=== PATIENT | male | born 1960 | race Hispanic/Latino ===

== ENCOUNTER 2018-06-11 01:03 | Inpatient (IN) | payer SELFPAY ==
[~2018-06-11 01:03] MED LIST: ADRENALIN ONE; ASPIRIN PR ONE; CALCIUM CHLORIDE IV ONE; CORDARONE IV ONE; HEPARIN 10,000 UNITS/10 ML ONE; MAGNESIUM SULFATE ONE; NACL 0.9% 1000 ML ONE; SODIUM CHLORIDE FLUSH SYRINGE 10 ML IV ONE
[2018-06-11] MEDS ORDERED: VERSED IV ONE (01:15)
[2018-06-11] MEDS ORDERED: ZEMURON IV ONE (01:15)
[2018-06-11] MEDS ORDERED: fentaNYL DRIP Premix 2,000 MCG/100 ML BAG IV SCH (01:15)
[2018-06-11] MEDS ORDERED: NACL 0.9% 1000 ML 1,000 ML IV ONE ×2 (01:21→01:31)
--- NOTE | 2018-06-11 01:21 | Emergency Department Report ---
ED CPR HPI - General Chief Complaint: Altered Mental Status Stated Complaint: CHEST PAIN Time Seen by Provider: 06/11/18 01:21 Mode of arrival: Stretcher Limitations: Altered Mental Status (Patient is unresponsive and was rushed to the main ED from the triage area where he passed out.) - History of Present Illness Initial Comments: Patient was rushed to the emergency room ED from triage area where he suddenly collapsed after complaining of chest pain. When patient arrived in the main ED he had no problems and no respiration. CPR was immediately started and ACLS protocol followed. Patient was quickly intubated and he was given epinephrine, calcium chloride, bicarbonate and IV fluids. Patient went into ventricular fibrillation and was shocked 3 times. After the third shock he was given 300 mg of Amiodarone IVP. Patient regained spontaneous circulation and EKG subs equently showed anterior ST elevation myocardial infarction. Code STEMI was activated immediately and was taken to the Change Management Coordinator. Complaint: stopped breathing Place: other (Hospital ED triage) Bystander CPR Performed: Yes AED Applied by Bystander/[employer]: Yes Shock Advised: Yes Number of Shocks Delivered: 3 Initial Findings in the Field: unresponsive, no respirations, no pulse Associated Injuries: No Associated Symptoms: chest pain - Related Data Allergies Allergy/AdvReac Type Severity Reaction Status Date / Time bupropion [From Wellbutrin] Allergy Unknown Verified 06/11/18 01:35 Penicillins Allergy Hives Verified 06/11/18 01:35 Oehtcet-Jit-Mci Reductase Allergy Unknown Verified 06/11/18 01:35 Inhibitor ED Review of Systems ROS: Stated complaint: CHEST PAIN Other details as noted in HPI Comment: Unobtainable due to pts medical conditions (Unresponsive.) ED Physical Exam - General Limitations: Altered Mental Status (Unresponsive) General appearance: other (Coma. GCS = 3.) - Head Head exam: Present: atraumatic, normal inspection - Eye Eye exam: Present: normal appearance Pupils: Present: other (sluggish) - ENT ENT exam: Present: normal exam, normal orophraynx, mucous membranes moist - Neck Neck exam: Present: normal inspection - Respiratory Respiratory exam: Present: other (No Respiration. ) - Cardiovascular Cardiovascular Exam: Present: other (No pulse) - GI/Abdominal GI/Abdominal exam: Present: soft, normal bowel sounds. Absent: distended - Rectal Rectal exam: Present: deferred - Extremities Exam Extremities exam: Present: normal inspection - Back Exam Back exam: Present: normal inspection - Neurological Exam Neurological exam: Present: other (GCS = 3.) - Skin Skin exam: Present: warm, dry, intact ED Course Vital Signs 06/11/18 06/11/18 01:04 03:51 Temperature 98.4 F 96.6 F L Pulse Rate 111 H Respiratory 17 Rate Blood Pressure 109/76 O2 Sat by Pulse 100 Oximetry - Consultations Consultation #1: 06/11/18 02:31 Dr. Hoffman the chief operating officer urologic surgeon was consulted for Code STEMI. He recommend giving the patient 5000 units of IV heparin bolus [id number] mg of aspirin per rectum before taking the patient to cath. lab for PCI. Consultation #2: 06/11/18 02:45 Dr Cheli Souza to admit. - Intubation Time Out Performed: Yes Sedative: none Size: 4 Assist Device Used: other (Glidescope) ET Tube Size: 7.5 Tube Secured Depth (cm): 22 Tube Secured Location: teeth Tube Placement Confirmation: visualized tube passing t, equal breath sounds bilat, no breath sounds over epi, confirmation by capnometr Patient Tolerated Procedure: well, no complications Intubation Complications: none Additional Comments: RSI was not done because patient is unconscious and has no gag reflex. CPR in progress. Patient had no pulse. ED Medical Decision Making - Lab Data Result diagrams: 06/11/18 01:31 06/11/18 01:31 - EKG Data -: EKG Interpreted by Me EKG shows normal: sinus rhythm Rate: tachycardia (122) - EKG Data When compared to previous EKG there are: previous EKG unavailable Interpretation: acute ID 06/11/18 01:36 ST elevation in I, V2, V3, V4, V5 with reciprocal changes in II, III and AVF. Anterior STEMI. Dr Hoffman called and code STEMI initiated immediately. Critical Care Time: Yes Critical care time in (mins) excluding proc time.: 65 Critical care attestation.: If time is entered above; I have spent that time in minutes in the direct care of this critically ill patient, excluding procedure time. ED Disposition Clinical Impression: ST elevation myocardial infarction (STEMI) of anterior wall, Cardiac arrest, Acute hypokalemia Altered mental status Qualifiers: Altered mental status type: coma Coma depth: Spur coma 3-8 Coma timing: at arrival to emergency department Qualified Code(s): R40.2432 - Spur coma scale score 3-8, at arrival to emergency department Disposition: DC-09 OP ADMIT IP TO THIS HOSP Is pt being admited?: Yes Does the pt Need Aspirin: Yes Condition: Critical Time of Disposition: 02:00
[2018-06-11] MEDS ORDERED: fentaNYL DRIP Premix 2,000 MCG/100 ML BAG IV ONE (01:23)
[2018-06-11] MEDS ORDERED: ASPIRIN PR ONE (01:28)
[2018-06-11] MEDS ORDERED: HEPARIN 10,000 UNITS/10 ML IV ONE (01:28)
[2018-06-11] MEDS ORDERED: SUBLIMAZE IV ONE (01:40)
[2018-06-11 01:48] LABS: Hematocrit 43.7 % (35.5-45.6); Hemoglobin 14.1 gm/dl (11.8-15.2); Mean Corpuscular HGB Conc 32 % (32-34); Mean Corpuscular Volume 89 fl (84-94); Platelet Count 260 K/mm3 (140-440); Red Blood Count 4.91 M/mm3 (3.65-5.03); Red Cell Distribution Width 13.1 % (13.2-15.2)
[2018-06-11] MEDS: CORDARONE 900 MG in D5W 482 ML IV SCH (01:48)
--- NOTE | 2018-06-11 01:48 | XRay Report ---
FINAL REPORT PROCEDURE: XR CHEST 1V AP TECHNIQUE: Chest radiograph anteroposterior view. CPT 95357 HISTORY: Altered Mental Status COMPARISON: No prior studies are available for comparison. FINDINGS: Heart: Normal. Mediastinum/Vessels: Normal. Lungs/Pleural space: Normal. Bony thorax: No acute osseous abnormality. Life support devices: The endotracheal tube ends 4 centimeters above the roxann. IMPRESSION: There is no evidence of an acute cardiopulmonary process. The endotracheal tube is properly positione d..
[2018-06-11 01:59] LABS: INR 1.03 (0.87-1.13); Partial Thromboplastin Time 29.2 Sec. (24.2-36.6)
[2018-06-11] MEDS ORDERED: VERSED IV NR (02:00)
[2018-06-11 02:01] LABS: Bilirubin,Urine Negative (Negative); Color,Urine Yellow (Yellow)
[2018-06-11 02:02] LABS: Blood,Urine Negative (Negative); Urobilinogen,Urine < 2.0 mg/dL (<2.0)
[2018-06-11 02:03] LABS: Bacteria,Urine 4+ /HPF (Negative); Mucus,Urine 3+ /HPF; Sperm,Urine 3+ /HPF (NP)
[2018-06-11 02:06] LABS: Amphetamine Screen,Urine PRESUMPTIVE NEGATIVE; Benzodiazepines Screen,Urine PRESUMPTIVE NEGATIVE; Cannabinoid Screen,Urine PRESUMPTIVE NEGATIVE; Cocaine Screen,Urine PRESUMPTIVE NEGATIVE; Methadone Screen,Urine PRESUMPTIVE NEGATIVE
[2018-06-11 02:09] LABS: Alanine Aminotransferase 58 units/L (7-56); Albumin 3.8 g/dL (3.9-5); BUN/Creatinine Ratio 15; Blood Urea Nitrogen 16 mg/dL (9-20); Calcium 10.8 mg/dL (8.4-10.2); Hemolysis Index 43
[2018-06-11] MEDS ORDERED: HEPARIN/NS 5000 UNIT/500ML(CATH LAB) 1,500 ML IR ONE (02:14)
[2018-06-11] MEDS ORDERED: XYLOCAINE 2% INFILTRATI ONE (02:14)
[2018-06-11] MEDS ORDERED: HEPARIN 10,000 UNITS/10 ML ONE (02:14)
[2018-06-11] MEDS ORDERED: NITROGLYCERIN SYRINGE 3 ML ONE ×2 (02:15→02:55)
[2018-06-11 02:24] LABS: Opiate Screen,Urine PRESUMPTIVE POSITIVE
[2018-06-11] MEDS ORDERED: VERSED ONE ×2 (02:31→03:23)
[2018-06-11 02:36] LABS: Basophils % (Manual) 0 % (0.0-1.8); Eosinophils % (Manual) 2.5 % (0.0-4.3); Total Cells Counted 200
[2018-06-11 02:43] LABS: Platelet Estimate Consistent w Auto; RBC Morphology Normal
[2018-06-11] MEDS ORDERED: KCL 10MEQ/100ML 10 MEQ/100 ML BAG IV ONE (02:44)
[2018-06-11] MEDS: VERSED ONE ×2 (02:54→03:21)
[2018-06-11] MEDS: HEPARIN 10,000 UNITS/10 ML ONE ×2 (02:56→03:02)
[2018-06-11] MEDS ORDERED: KCL 10MEQ/100ML 10 MEQ/100 ML BAG IV SCH (03:00)
[2018-06-11] MEDS ORDERED: ALUM-MAG HYDROX-SIMETH 200-200-20MG/5ML ONE (03:03)
[2018-06-11] MEDS ORDERED: TRIDIL DRIP 50MG/250ML 50 MG/250 ML BOTTLE ONE (03:03)
[2018-06-11] MEDS ORDERED: PLAVIX ONE (03:03)
[2018-06-11] MEDS ORDERED: VASELINE LIP THERAPY TP PRN (03:09)
[2018-06-11] MEDS ORDERED: VERSED IV PRN (03:09)
[2018-06-11] MEDS ORDERED: ARTIFICIAL TEARS OPHTH OINT OU PRN (03:09)
[2018-06-11] MEDS ORDERED: VANCOMYCIN/NS 1 GM/250 ML 1 GM/250 ML BAG IV ONE (03:12)
[2018-06-11] MEDS ORDERED: TRIDIL DRIP 50MG/250ML 50 MG/250 ML BOTTLE IV ONE (03:14)
[2018-06-11] MEDS ORDERED: K-DUR PO ONE (03:16)
--- NOTE | 2018-06-11 03:32 | Consultation ---
History of Present Illness Consult date: 06/11/18 Consult reason: cardiac arrest, other (acute ST elevation anterior wall myocardial infarction) History of present illness: 57-year-old man admitted to the emergency room following a cardiac arrest manifested by ventricular fibrillation and ventricular tachycardia. Emergency room, he received ACLS protocol, was defibrillated at least 3 times, and placed on the vent. Subsequent ECG demonstrated an acute anterolateral wall ST alberto vation myocardial infarction. Emergency cardiac catheterization protocol was activated. On cardiac catheterization was found complete occlusion of the left anterior descending artery in its mid segment, and commenced with intermediate primary angioplasty. DELIA-3 flow was successfully restored, and serial 2.5-2.75 mm drug-eluting stents were successfully deployed. Post intervention, the patient is hemodynamically stable, remains sedated on the vent, and is transferred to the CCU for post myocardial infarction management. Past History Past Medical History: No medical history Medications and Allergies Allergies Allergy/AdvReac Type Severity Reaction Status Date / Time bupropion [From Wellbutrin] Allergy Unknown Verified 06/11/18 01:35 Penicillins Allergy Hives Verified 06/11/18 01:35 Efhvizv-Ttl-Ccq Reductase Allergy Unknown Verified 06/11/18 01:35 Inhibitor Active Meds: Active Medications Atorvastatin Calcium (Lipitor) 40 mg PO QHS SANDY Clopidogrel Bisulfate (Plavix) 75 mg PO QDAY SANDY Hydrophilic Ointment (Vaseline Lip Therapy) 1 applic TP Q2HR PRN PRN Reason: Dry Lips Amiodarone HCl 900 mg/ (Dextrose) 500 mls @ 33.33 mls/hr IV DIRECT SANDY; Protocol Last Admin: 06/11/18 01:48 Dose: 1 mg/min, 33.33 mls/hr Documented by: Potassium Chloride (Kcl 10meq/100ml) 10 meq in 100 mls @ 100 mls/hr IV ONCE ONE Stop: 06/11/18 03:43 Midazolam HCl 100 mg/ Sodium (Chloride) 100 mls @ 2 mls/hr IV TITR SANDY; Protocol Levofloxacin/Dextrose (Levaquin 750mg/150ml) 750 mg in 150 mls @ 100 mls/hr IV Q24HR SANDY; Protocol Vancomycin HCl (Vancomycin/Ns 1 Gm/250 Ml) 1 gm in 250 mls @ 167.007 mls/hr IV ONCE ONE; Protocol Stop: 06/11/18 04:41 Nitroglycerin/Dextrose (Tridil Drip 50mg/250ml) 50 mg in 250 mls @ 3 mls/hr IV TITR ONE; Protocol Stop: 06/14/18 14:33 Sodium Chloride (Nacl 0.9% 1000 Ml) 1,000 mls @ 100 mls/hr IV DIRECT SANDY Stop: 06/11/18 15:59 Sodium Chloride (Nacl 0.9% 1000 Ml) 1,000 mls @ 100 mls/hr IV DIRECT SANDY Lisinopril (Zestril) 2.5 mg PO QDAY SANDY Metoprolol Tartrate (Lopressor) 50 mg PO Q8H SANDY Midazolam HCl (Versed) 4 mg IV ONCE NR Stop: 06/11/18 23:45 Midazolam HCl (Versed) 2 mg IV Q10MIN PRN PRN Reason: Sedation Stop: 06/11/18 23:45 Multi-Ingred Cream/Lotion/Oil/Oint (Artificial Tears Ophth Oint) 1 applic OU Q4HR PRN PRN Reason: Dry Eye(s) Review of Systems Cardiovascular: chest pain, syncope, shortness of breath, no orthopnea, no palpitations, no rapid/irregular heart beat, no edema, no lightheadedness Physical Examination Vital Signs Temp Pulse Resp BP Pulse Ox 98.4 F 111 H 17 109/76 100 06/11/18 01:04 06/11/18 01:04 06/11/18 01:04 06/11/18 01:04 06/11/18 01:04 General appearance: other (sedated, on the vent) HEENT: Positive: PERRL Neck: Positive: neck supple Cardiac: Positive: Reg Rate and Rhythm Lungs: Positive: Decreased Breath Sounds Neuro: Positive: Other (sedated on the vent) Abdomen: Positive: Soft Male genitourinary: Positive: deferred Skin: Positive: Clear Extremities: Absent: edema Results 06/11/18 01:31 06/11/18 01:31 Cardiac Enzymes 06/11/18 Range/Units 01:31 AST 56 H (5-40) units/L Coagulation 06/11/18 Range/Units 01:31 PT 13.9 (12.2-14.9) Sec. INR 1.03 (0.87-1.13) APTT 29.2 (24.2-36.6) Sec. CBC 06/11/18 Range/Units 01:31 WBC 20.5 H (4.5-11.0) K/mm3 RBC 4.91 (3.65-5.03) M/mm3 Hgb 14.1 (11.8-15.2) gm/dl Hct 43.7 (35.5-45.6) % Plt Count 260 (140-440) K/mm3 Lymph # [employer] Comprehensive Metabolic Panel 06/11/18 Range/Units 01:31 Sodium 139 (137-145) mmol/L Potassium 2.6 L* (3.6-5.0) mmol/L Chloride 96.9 L (98-107) mmol/L Carbon Dioxide 22 (22-30) mmol/L BUN 16 (9-20) mg/dL Creatinine 1.1 (0.8-1.5) mg/dL Glucose 174 H (75-100) mg/dL Calcium 10.8 H (8.4-10.2) mg/dL AST 56 H (5-40) units/L ALT 58 H (7-56) units/L Alkaline Phosphatase 79 (35-129) units/L Total Protein 5.9 L (6.3-8.2) g/dL Albumin 3.8 L (3.9-5) g/dL EKG interpretations - Telemetry EKG Rhythm: Sinus Rhythm (with acute ST elevation myocardial infarction of the anterolateral wall) Assessment and Plan - Patient Problems (1) ST elevation myocardial infarction (STEMI) of anterior wall Current Visit: Yes Status: Acute Plan to address problem: Status post emergency cardiac catheterization and successful primary angioplasty and stenting of the occluded mid left anterior descending artery.
[2018-06-11] MEDS ORDERED: NACL 0.9% 1000 ML 1,000 ML IV SCH ×2 (04:00)
[2018-06-11] MEDS ORDERED: MIDAZOLAM 100 MG in NACL 0.9% 80 ML IV SCH (04:00)
--- NOTE | 2018-06-11 04:25 | Cardiac Catherization Report ---
CARDIAC CATHETERIZATION AND CORONARY ANGIOPLASTY REPORT REASON FOR PROCEDURE: The patient is a 57-year-old man who presents to the Emergency Room with chest pain and syncope, and underwent a brief ACLS protocol in the Emergency Room with finding of ventricular fibrillation and ventricular tachycardia requiring defibrillation x 3. After resuscitation, and ECG demonstrated an acute anterolateral wall ST elevation myocardial infarction, emergency cardiac catheterization protocol was activated. PROCEDURES: 1. Left heart catheterization. 2. Selective left and right coronary angiography. 3. Coronary angioplasty and stenting of the left anterior descending artery. 4. Sedation time start 0238, end 0257. The patient was prepped and draped under emergency protocol. On arrival to the lab aid, he was sedated, and intubated on the vent. The right femoral artery was entered using the Seldinger technique followed by placement of a 6-Armenian sheath. A #4 right Gisel catheter was used for right coronary angiography. A #3.5 XB guiding catheter was then advanced to the left coronary ostium and used for left coronary angiography. The angiograms were reviewed. CORONARY ANGIOGRAPHY: There was moderate diffuse calcification of the proximal to mid left anterior descending artery. The left main coronary artery contained mild luminal irregularities. The left anterior descending artery was completely occluded in its mid segment. There was DELIA grade 0 antegrade flow. This was the infarct related lesion. The circumflex artery was a small caliber system that contained diffuse mild to moderate atherosclerosis. The right coronary artery was dominant. This vessel contained a long area of atherosclerosis of its proximal to mid segment, with up to 30% to 50% luminal narrowing. CORONARY ANGIOPLASTY: Ad hoc, primary angioplasty of the LAD was performed. A 0.014 inch Ortho Assistant 50 guidewire was successfully transitioned through the completely occluded LAD. Following wire placement in the distal LAD, we used a 2.5 mm balloon catheter and predilated the stenosis revealing a diffusely diseased mid and distal LAD. We then deployed a 2.75 x 26 mm drug-eluting stent covering the entire lesional segment of the mid LAD. Following this, another 2.5 x 15 mm stent was deployed across a secondary 75% to 80% stenosis of the distal LAD. A 3.0 mm noncompliant balloon was then used to post-dilate the mid LAD primary lesional segment. Following angioplasty and stenting as described, there was an excellent angiographic result, DELIA 3 flow was restored down the vessel, no residual stenosis. Procedure was well tolerated and there were no complications. The catheters and the wires were removed, sheath removed, and hemostasis achieved using an Angio-Seal device. The patient was returned to the postprocedure unit in stable hemodynamic condition. He remains sedated on the vent and is transferred to the CCU for post-HI management. CONCLUSION: 1. Acute anterior wall ST elevation myocardial infarction. 2. Emergency cardiac catheterization. 3. 100% occlusion of the mid LAD, treated successfully, with mandaeism of DELIA 3 flow following serial 2.5-2.75 mm drug-eluting stents. The patient will be admitted to the CCU, echocardiogram will be done for left ventricular function and valvular function assessment. JOB# [id number] LEFTY/JAIME
[2018-06-11 05:19] LABS: Hematocrit 37.6 % (35.5-45.6); Hemoglobin 12.6 gm/dl (11.8-15.2); Mean Corpuscular HGB Conc 34 % (32-34); Mean Corpuscular Volume 84 fl (84-94); Platelet Count 308 K/mm3 (140-440); Red Blood Count 4.46 M/mm3 (3.65-5.03); Red Cell Distribution Width 12.7 % (13.2-15.2)
[2018-06-11] MEDS: LEVAQUIN 750MG/150ML 750 MG/150 ML BAG IV SCH ×2 (05:21→10:36)
[2018-06-11] MEDS: LOPRESSOR PO SCH ×3 (05:22→20:48)
--- NOTE | 2018-06-11 05:28 | History and Physical Report ---
History of Present Illness Date of examination: 06/11/18 Date of admission: 06/11/18 03:20 History of present illness: 57-year-old man with no medical problem comes emergency room for evaluation of chest pain. While he was in the waiting room he had a syncopal episode. He was brought back into the emergency room, he had cardiac arrest and CPR was started. Patient was shocked 3 for V. fib, he was taken emergently to the cath lab manager where a stent was placed in the LAD. A review of systems unobtainable PAST MEDICAL HISTORY: Unknown PAST SURGICAL HISTORY: Unknown SOCIAL HISTORY: Unknown FAMILY HISTORY: Unknown Past History Past Medical History: No medical history Medications and Allergies Allergies Allergy/AdvReac Type Severity Reaction Status Date / Time bupropion [From Wellbutrin] Allergy Unknown Verified 06/20/18 13:53 Penicillins Allergy Hives Verified 06/20/18 13:53 Tpurwif-Sqj-Zok Reductase Allergy Unknown Verified 06/20/18 13:53 Inhibitor Home Medications Medication Instructions Recorded Confirmed Last Taken Type RX: Acetaminophen [Acetaminophen 650 mg PO Q6H PRN #15 tablet 06/18/18 Unknown Rx TAB] RX: Amiodarone [Cordarone 200 MG 200 mg PO BID #60 tablet 06/18/18 Unknown Rx TAB] RX: Aspirin EC [Aspirin Enteric 81 mg PO QDAY #30 tablet 06/18/18 Unknown Rx Coated TAB] RX: Clopidogrel [Plavix] 75 mg PO QDAY #30 tablet 06/18/18 Unknown Rx RX: ISOSORBIDE MONOnitrate [Imdur 30 mg PO QDAY #30 tablet 06/18/18 Unknown Rx ER] RX: Lactobacillus Acidophil 1 each PO BID #30 tab.chew 06/18/18 Unknown Rx [Lactinex] RX: Lisinopril [Zestril TAB] 2.5 mg PO QDAY #30 tablet 06/18/18 Unknown Rx RX: Metoprolol Xl [Metoprolol 200 mg PO QDAY #30 tablet 06/18/18 Unknown Rx SUCCINATE ER TAB] RX: Pantoprazole [Protonix TAB] 20 mg PO DAILY #30 tablet 06/18/18 Unknown Rx RX: Spironolactone [Aldactone] 25 mg PO QDAY #30 tablet 06/18/18 Unknown Rx Rosuvastatin (Nf) [Crestor] 20 mg PO QHS #30 tablet 06/18/18 Unknown Rx Active Meds: Active Medications Atorvastatin Calcium (Lipitor) 40 mg PO QHS SANDY Clopidogrel Bisulfate (Plavix) 75 mg PO QDAY SANDY Hydrophilic Ointment (Vaseline Lip Therapy) 1 applic TP Q2HR PRN PRN Reason: Dry Lips Amiodarone HCl 900 mg/ (Dextrose) 500 mls @ 33.33 mls/hr IV DIRECT SANDY; Protocol Last Admin: 06/11/18 01:48 Dose: 1 mg/min, 33.33 mls/hr Documented by: Midazolam HCl 100 mg/ Sodium (Chloride) 100 mls @ 2 mls/hr IV TITR SANDY; Protocol Last Admin: 06/11/18 03:52 Dose: 2 mg/hr, 2 mls/hr Documented by: Levofloxacin/Dextrose (Levaquin 750mg/150ml) 750 mg in 150 mls @ 100 mls/hr IV Q24HR SANDY; Protocol Last Admin: 06/11/18 05:21 Dose: Not Given Documented by: Nitroglycerin/Dextrose (Tridil Drip 50mg/250ml) 50 mg in 250 mls @ 3 mls/hr IV TITR ONE; Protocol Stop: 06/14/18 14:33 Last Admin: 06/11/18 05:21 Dose: Not Given Documented by: Sodium Chloride (Nacl 0.9% 1000 Ml) 1,000 mls @ 100 mls/hr IV DIRECT SANDY Stop: 06/11/18 15:59 Sodium Chloride (Nacl 0.9% 1000 Ml) 1,000 mls @ 100 mls/hr IV DIRECT SANDY Lisinopril (Zestril) 2.5 mg PO QDAY SANDY Metoprolol Tartrate (Lopressor) 50 mg PO Q8H [facility] Last Admin: 06/11/18 05:22 Dose: Not Given Documented by: Midazolam HCl (Versed) 4 mg IV ONCE NR Stop: 06/11/18 23:45 Midazolam HCl (Versed) 2 mg IV Q10MIN PRN PRN Reason: Sedation Stop: 06/11/18 23:45 Multi-Ingred Cream/Lotion/Oil/Oint (Artificial Tears Ophth Oint) 1 applic OU Q4HR PRN PRN Reason: Dry Eye(s) Exam - Physical Exam Narrative exam: General Apperance: The patient lying in bed, breathing comfortable , intubated HEENT: Normocephalic, atraumatic. Pupils equally round and reactive to light, unable to do EOM, no sclericterus or JVD or thyromegaly or nodule. , no carotid bruit, mucous membranes moist, no exudate or erythema Heart: S1-S2, regular is rhythm Lungs: Clear to auscultation anteriorly bilaterally, breathing comfortable Abdomen: Positive bowel sounds, soft, soft, nondistended, no organomegaly Extremities: No edema cyanosis clubbing Skin: sacral and lower extremity ulcers, no rash, nodule, warm and dry Neuro: sedated - Constitutional Vitals: Temp Pulse Resp BP Pulse Ox 96.6 F L 71 20 83/56 99 06/11/18 03:51 06/11/18 05:22 06/11/18 05:15 06/11/18 05:22 06/11/18 05:15 Results - Labs CBC & Chem 7: 06/18/18 04:46 06/18/18 04:46 Labs: Abnormal lab results 06/11/18 06/11/18 06/11/18 Range/Units 01:31 01:31 01:31 WBC 20.5 H (4.5-11.0) K/mm3 RDW 13.1 L (13.2-15.2) % Seg Neutrophils # Man 12.3 H (1.8-7.7) K/mm3 Lymphocytes # (Manual) 6.9 H (1.2-5.4) K/mm3 Eosinophils # (Manual) 0.5 H (0.0-0.4) K/mm3 Potassium 2.6 L* (3.6-5.0) mmol/L Chloride 96.9 L (98-107) mmol/L Glucose 174 H (75-100) mg/dL Lactic Acid 9.10 H* (0.7-2.0) mmol/L Calcium 10.8 H (8.4-10.2) mg/dL AST 56 H (5-40) units/L ALT 58 H (7-56) units/L Ammonia (25-60) umol/L Troponin T 0.094 H (0.00-0.029) ng/mL NT-Pro-B Natriuret Pep 1466 H (0-900) pg/mL Total Protein 5.9 L (6.3-8.2) g/dL Albumin 3.8 L (3.9-5) g/dL TSH (0.270-4.200) mlU/mL Urine WBC (Auto) (0.0-6.0) /HPF 06/11/18 06/11/18 06/11/18 Range/Units 01:31 01:31 01:31 WBC (4.5-11.0) K/mm3 RDW (13.2-15.2) % Seg Neutrophils # Man (1.8-7.7) K/mm3 Lymphocytes # (Manual) (1.2-5.4) K/mm3 Eosinophils # (Manual) (0.0-0.4) K/mm3 Potassium (3.6-5.0) mmol/L Chloride (98-107) mmol/L Glucose (75-100) mg/dL Lactic Acid (0.7-2.0) mmol/L Calcium (8.4-10.2) mg/dL AST (5-40) units/L ALT (7-56) units/L Ammonia 62.0 H (25-60) umol/L Troponin T (0.00-0.029) ng/mL NT-Pro-B Natriuret Pep (0-900) pg/mL Total Protein (6.3-8.2) g/dL Albumin (3.9-5) g/dL TSH 7.520 H (0.270-4.200) mlU/mL Urine WBC (Auto) 11.0 H (0.0-6.0) /HPF 06/11/18 Range/Units 04:58 WBC 24.7 H (4.5-11.0) K/mm3 RDW 12.7 L (13.2-15.2) % Seg Neutrophils # Man (1.8-7.7) K/mm3 Lymphocytes # (Manual) (1.2-5.4) K/mm3 Eosinophils # (Manual) (0.0-0.4) K/mm3 Potassium (3.6-5.0) mmol/L Chloride (98-107) mmol/L Glucose (75-100) mg/dL Lactic Acid (0.7-2.0) mmol/L Calcium (8.4-10.2) mg/dL AST (5-40) units/L ALT (7-56) units/L Ammonia (25-60) umol/L Troponin T (0.00-0.029) ng/mL NT-Pro-B Natriuret Pep (0-900) pg/mL Total Protein (6.3-8.2) g/dL Albumin (3.9-5) g/dL TSH (0.270-4.200) mlU/mL Urine WBC (Auto) (0.0-6.0) /HPF - Imaging and Cardiology EKG: image reviewed Chest x-ray: image reviewed Assessment and Plan Assessment Acute respiratory failure Cardiac arrest Sepsis STMI Status post V. fib Hypokalemia Plan Admit to medicine Start IV fluid, vancomycin, Zosyn, obtain blood cultures Consult critical care, replete potassium level Continue sedation with Versed drip Check T4, TSH level elevated, monitor cardiac enzymes STEMI, post V. fib V. fib, management per cardiology DVT prophylaxis
[2018-06-11 05:35] LABS: BUN/Creatinine Ratio 15; Blood Urea Nitrogen 17 mg/dL (9-20); Calcium 8.6 mg/dL (8.4-10.2); Hemolysis Index 10
[2018-06-11 06:20] LABS: Band Neutrophils # (Manual) 0.4 K/mm3; Basophils % (Manual) 0 % (0.0-1.8); Eosinophils % (Manual) 0 % (0.0-4.3); Monocytes % (Manual) 4.5 % (0.0-7.3); Platelet Estimate Consistent w Auto; RBC Morphology Normal; Total Cells Counted 200
[2018-06-11 06:29] LABS: Creatine Kinase MB 89.4 ng/mL (0.0-4.0)
[2018-06-11 06:49] LABS: Chol/HDL Ratio 3.41 %
--- NOTE | 2018-06-11 09:15 | Progress Note ---
Assessment and Plan - Patient Problems (1) Ventricular fibrillation Current Visit: Yes Status: Acute (2) Cardiac arrest Current Visit: Yes Status: Acute (3) ST elevation myocardial infarction (STEMI) of anterior wall Current Visit: Yes Status: Acute Subjective Date of service: 06/11/18 Interval history: vent',,,arousable Objective Vital Signs Temp Pulse Resp BP Pulse Ox 06/11/18 07:51 97.4 F L 06/11/18 07:00 74 20 107/78 100 06/11/18 06:45 70 20 110/81 06/11/18 06:30 73 20 92/65 100 06/11/18 06:15 71 20 89/60 100 06/11/18 06:00 71 20 83/57 100 06/11/18 05:45 71 20 79/55 06/11/18 05:30 71 20 82/54 06/11/18 05:22 71 83/56 06/11/18 05:15 71 20 83/56 99 06/11/18 05:01 73 20 91/60 99 06/11/18 04:45 75 20 103/72 98 06/11/18 04:31 76 18 105/74 97 06/11/18 04:15 73 20 105/72 99 06/11/18 04:01 74 20 109/71 98 06/11/18 03:54 73 114/71 98 06/11/18 03:51 96.6 F L 20 100 06/11/18 03:45 83 10 L 06/11/18 01:45 87 20 106/75 100 06/11/18 01:31 107 H 14 94/66 100 06/11/18 01:16 131 H 28 H 109/76 97 06/11/18 01:08 214 H 102 H 108/68 06/11/18 01:04 98.4 F 111 H 17 109/76 100 06/11/18 00:30 108/68 06/11/18 00:24 95 H 25 H 99 - Physical Examination General: Other (VENT) HEENT: Positive: PERRL Neck: Positive: neck supple Cardiac: Positive: Reg Rate and Rhythm Lungs: Positive: clear to auscultation Neuro: Positive: Grossly Intact, Other (sedated on the vent) Abdomen: Positive: Soft Skin: Positive: Clear Musculoskeletal: Normal Range of Motion Extremities: Present: normal. Absent: edema - Labs and Meds Cardiac Enzymes 06/11/18 06/11/18 Range/Units 01:31 04:58 AST 56 H (5-40) units/L CK-MB (CK-2) 89.4 H (0.0-4.0) ng/mL Coagulation 06/11/18 Range/Units 01:31 PT 13.9 (12.2-14.9) Sec. INR 1.03 (0.87-1.13) APTT 29.2 (24.2-36.6) Sec. Lipids 06/11/18 Range/Units 04:58 Triglycerides 41 (2-149) mg/dL Cholesterol 140 (50-199) mg/dL HDL Cholesterol 41 (40-59) mg/dL Cholesterol/HDL Ratio 3.41 % CBC 06/11/18 06/11/18 Range/Units 01:31 04:58 WBC 20.5 H 24.7 H (4.5-11.0) K/mm3 RBC 4.91 4.46 (3.65-5.03) M/mm3 Hgb 14.1 12.6 (11.8-15.2) gm/dl Hct 43.7 37.6 D (35.5-45.6) % Plt Count 260 308 (140-440) K/mm3 Lymph # Deli Clerk Comprehensive Metabolic Panel 06/11/18 06/11/18 06/11/18 Range/Units 01:31 04:58 04:58 Sodium 139 137 (137-145) mmol/L Potassium 2.6 L* 4.0 D 4.0 (3.6-5.0) mmol/L Chloride 96.9 L 102.1 (98-107) mmol/L Carbon Dioxide 22 23 (22-30) mmol/L BUN 16 17 (9-20) mg/dL Creatinine 1.1 1.1 (0.8-1.5) mg/dL Glucose 174 H 195 H (75-100) mg/dL Calcium 10.8 H 8.6 D (8.4-10.2) mg/dL AST 56 H (5-40) units/L ALT 58 H (7-56) units/L Alkaline Phosphatase 79 (35-129) units/L Total Protein 5.9 L (6.3-8.2) g/dL Albumin 3.8 L (3.9-5) g/dL - Imaging and Cardiology EKG: image reviewed
[2018-06-11] MEDS ORDERED: PEPCID IV SCH (10:00)
[2018-06-11] MEDS: LOVENOX SUB-Q SCH (10:35)
[2018-06-11] MEDS: ASPIRIN PO SCH (10:35)
[2018-06-11] MEDS: ZESTRIL PO SCH (10:42)
--- NOTE | 2018-06-11 11:04 | XRay Report ---
AP CHEST: HISTORY: Short of breath The endotracheal tube and nasogastric tube have been removed since earlier today at 0127 hours. AP view of the chest demonstrates a normal mediastinal and cardiac contour with clear lungs and normal bony and soft tissue structures. IMPRESSION: Unremarkable AP chest.
[2018-06-11] MEDS ORDERED: LASIX IV ONE (12:00)
[2018-06-11 12:27] LABS: Creatine Kinase MB 243.4 ng/mL (0.0-4.0)
[2018-06-11] MEDS: ZOFRAN IV PRN (13:15)
--- NOTE | 2018-06-11 13:51 | Consultation ---
History of Present Illness - Reason for Consult Consult date: 06/11/18 Post Vfib ARREST Requesting physician: ELIAS DEGROOT - History of Present Illness 57 y/o male with chest pain. Collapsed in triage. Found to be in Vfib arrest. Taken to [facility] and found to have 100% LAD occlusion. Stented. Patient was intubated prior to [facility]. Mother at bedside, frantic. Patient is awake and alert, follows commands. All sedation is off. Past History Past Medical History: No medical history Past Surgical History: No surgical history Social history: no significant social history Family history: no significant family history Medications and Allergies Allergies Allergy/AdvReac Type Severity Reaction Status Date / Time bupropion [From Wellbutrin] Allergy Unknown Verified 06/11/18 01:35 Penicillins Allergy Hives Verified 06/11/18 01:35 Adtuvaz-Yff-Usp Reductase Allergy Unknown Verified 06/11/18 01:35 Inhibitor Active Meds: Active Medications Aspirin (Aspirin) 325 mg PO QDAY [facility] Last Admin: 06/11/18 10:35 Dose: 325 mg Documented by: Atorvastatin Calcium (Lipitor) 40 mg PO QHS SANDY Clopidogrel Bisulfate (Plavix) 75 mg PO QDAY SANDY Enoxaparin Sodium (Lovenox) 40 mg SUB-Q QDAY [facility] Last Admin: 06/11/18 10:35 Dose: 40 mg Documented by: Hydrophilic Ointment (Vaseline Lip Therapy) 1 applic TP Q2HR PRN PRN Reason: Dry Lips Amiodarone HCl 900 mg/ (Dextrose) 500 mls @ 33.33 mls/hr IV DIRECT SANDY; Protocol Last Titration: 06/11/18 06:00 Dose: 0.5 mg/min, 16.67 mls/hr Documented by: Nitroglycerin/Dextrose (Tridil Drip 50mg/250ml) 50 mg in 250 mls @ 3 mls/hr IV TITR ONE; Protocol Stop: 06/14/18 14:33 Last Admin: 06/11/18 05:21 Dose: Not Given Documented by: Lisinopril (Zestril) 2.5 mg PO QDAY [facility] Last Admin: 06/11/18 10:42 Dose: 2.5 mg Documented by: Metoprolol Tartrate (Lopressor) 50 mg PO Q8H [facility] Last Admin: 01/02/19 05:22 Dose: Not Given Documented by: Multi-Ingred Cream/Lotion/Oil/Oint (Artificial Tears Ophth Oint) 1 applic OU Q4HR PRN PRN Reason: Dry Eye(s) Ondansetron HCl (Zofran) 4 mg IV Q8H PRN PRN Reason: Nausea And Vomiting Review of Systems ROS unobtainable: due to endotracheal tube Exam - Constitutional Vitals: Temp Pulse Resp BP Pulse Ox 97.2 F L 88 25 H 125/90 93 06/11/18 12:00 06/11/18 12:31 06/11/18 12:31 06/11/18 12:31 06/11/18 12:31 General appearance: Present: no acute distress, well-nourished - EENT Eyes: Present: PERRL, EOM intact ENT: hearing intact, other (orally intubated) - Neck Neck: Present: supple, normal ROM - Respiratory Respiratory effort: normal Respiratory: bilateral: CTA - Cardiovascular Rhythm: regular Heart Sounds: Present: S1 & S2 - Abdominal General gastrointestinal: Present: soft, non-tender Male genitourinary: Present: deferred - Rectal Rectal Exam: deferred Results - Labs CBC & Chem 7: 06/11/18 04:58 06/11/18 04:58 Labs: Abnormal lab results 06/11/18 06/11/18 06/11/18 Range/Units 01:31 01:31 01:31 WBC 20.5 H (4.5-11.0) K/mm3 RDW 13.1 L (13.2-15.2) % Seg Neuts % (Manual) (40.0-70.0) % Lymphocytes % (Manual) (13.4-35.0) % Seg Neutrophils # Man 12.3 H (1.8-7.7) K/mm3 Lymphocytes # (Manual) 6.9 H (1.2-5.4) K/mm3 Monocytes # (Manual) (0.0-0.8) K/mm3 Eosinophils # (Manual) 0.5 H (0.0-0.4) K/mm3 POC ABG pO2 (80-105) Potassium 2.6 L* (3.6-5.0) mmol/L Chloride 96.9 L (98-107) mmol/L Glucose 174 H (75-100) mg/dL POC Glucose (70-105) Lactic Acid 9.10 H* (0.7-2.0) mmol/L Calcium 10.8 H (8.4-10.2) mg/dL AST 56 H (5-40) units/L ALT 58 H (7-56) units/L Ammonia (25-60) umol/L Total Creatine Kinase (55-170) units/L CK-MB (CK-2) (0.0-4.0) ng/mL CK-MB (CK-2) Rel Index (0-4) Troponin T 0.094 H (0.00-0.029) ng/mL NT-Pro-B Natriuret Pep 1466 H (0-900) pg/mL Total Protein 5.9 L (6.3-8.2) g/dL Albumin 3.8 L (3.9-5) g/dL TSH (0.270-4.200) mlU/mL Urine WBC (Auto) (0.0-6.0) /HPF 06/11/18 06/11/18 06/11/18 Range/Units 01:31 01:31 01:31 WBC (4.5-11.0) K/mm3 RDW (13.2-15.2) % Seg Neuts % (Manual) (40.0-70.0) % Lymphocytes % (Manual) (13.4-35.0) % Seg Neutrophils # Man (1.8-7.7) K/mm3 Lymphocytes # (Manual) (1.2-5.4) K/mm3 Monocytes # (Manual) (0.0-0.8) K/mm3 Eosinophils # (Manual) (0.0-0.4) K/mm3 POC ABG pO2 (80-105) Potassium (3.6-5.0) mmol/L Chloride (98-107) mmol/L Glucose (75-100) mg/dL POC Glucose (70-105) Lactic Acid (0.7-2.0) mmol/L Calcium (8.4-10.2) mg/dL AST (5-40) units/L ALT (7-56) units/L Ammonia 62.0 H (25-60) umol/L Total Creatine Kinase (55-170) units/L CK-MB (CK-2) (0.0-4.0) ng/mL CK-MB (CK-2) Rel Index (0-4) Troponin T (0.00-0.029) ng/mL NT-Pro-B Natriuret Pep (0-900) pg/mL Total Protein (6.3-8.2) g/dL Albumin (3.9-5) g/dL TSH 7.520 H (0.270-4.200) mlU/mL Urine WBC (Auto) 11.0 H (0.0-6.0) /HPF 06/11/18 06/11/18 06/11/18 Range/Units 04:25 04:58 04:58 WBC (4.5-11.0) K/mm3 RDW (13.2-15.2) % Seg Neuts % (Manual) (40.0-70.0) % Lymphocytes % (Manual) (13.4-35.0) % Seg Neutrophils # Man (1.8-7.7) K/mm3 Lymphocytes # (Manual) (1.2-5.4) K/mm3 Monocytes # (Manual) (0.0-0.8) K/mm3 Eosinophils # (Manual) (0.0-0.4) K/mm3 POC ABG pO2 426 H (80-105) Potassium (3.6-5.0) mmol/L Chloride (98-107) mmol/L Glucose (75-100) mg/dL POC Glucose (70-105) Lactic Acid 3.00 H* (0.7-2.0) mmol/L Calcium (8.4-10.2) mg/dL AST (5-40) units/L ALT (7-56) units/L Ammonia (25-60) umol/L Total Creatine Kinase 1008 H (55-170) units/L CK-MB (CK-2) 89.4 H (0.0-4.0) ng/mL CK-MB (CK-2) Rel Index (0-4) Troponin T 0.829 H* D (0.00-0.029) ng/mL NT-Pro-B Natriuret Pep (0-900) pg/mL Total Protein (6.3-8.2) g/dL Albumin (3.9-5) g/dL TSH (0.270-4.200) mlU/mL Urine WBC (Auto) (0.0-6.0) /HPF 06/11/18 06/11/18 06/11/18 Range/Units 04:58 04:58 11:26 WBC 24.7 H (4.5-11.0) K/mm3 RDW 12.7 L (13.2-15.2) % Seg Neuts % (Manual) 86.5 H (40.0-70.0) % Lymphocytes % (Manual) 7.5 L (13.4-35.0) % Seg Neutrophils # Man 21.4 H (1.8-7.7) K/mm3 Lymphocytes # (Manual) (1.2-5.4) K/mm3 Monocytes # (Manual) 1.1 H (0.0-0.8) K/mm3 Eosinophils # (Manual) (0.0-0.4) K/mm3 POC ABG pO2 (80-105) Potassium (3.6-5.0) mmol/L Chloride (98-107) mmol/L Glucose 195 H (75-100) mg/dL POC Glucose (70-105) Lactic Acid (0.7-2.0) mmol/L Calcium (8.4-10.2) mg/dL AST (5-40) units/L ALT (7-56) units/L Ammonia (25-60) umol/L Total Creatine Kinase (55-170) units/L CK-MB (CK-2) (0.0-4.0) ng/mL CK-MB (CK-2) Rel Index (0-4) Troponin T 1.320 H* D (0.00-0.029) ng/mL NT-Pro-B Natriuret Pep (0-900) pg/mL Total Protein (6.3-8.2) g/dL Albumin (3.9-5) g/dL TSH (0.270-4.200) mlU/mL Urine WBC (Auto) (0.0-6.0) /HPF 06/11/18 06/11/18 Range/Units 11:26 11:58 WBC (4.5-11.0) K/mm3 RDW (13.2-15.2) % Seg Neuts % (Manual) (40.0-70.0) % Lymphocytes % (Manual) (13.4-35.0) % Seg Neutrophils # Man (1.8-7.7) K/mm3 Lymphocytes # (Manual) (1.2-5.4) K/mm3 Monocytes # (Manual) (0.0-0.8) K/mm3 Eosinophils # (Manual) (0.0-0.4) K/mm3 POC ABG pO2 (80-105) Potassium (3.6-5.0) mmol/L Chloride (98-107) mmol/L Glucose (75-100) mg/dL POC Glucose 187 H (70-105) Lactic Acid (0.7-2.0) mmol/L Calcium (8.4-10.2) mg/dL AST (5-40) units/L ALT (7-56) units/L Ammonia (25-60) umol/L Total Creatine Kinase 2150 H (55-170) units/L CK-MB (CK-2) 243.4 H (0.0-4.0) ng/mL CK-MB (CK-2) Rel Index 11.3 H (0-4) Troponin T (0.00-0.029) ng/mL NT-Pro-B Natriuret Pep (0-900) pg/mL Total Protein (6.3-8.2) g/dL Albumin (3.9-5) g/dL TSH (0.270-4.200) mlU/mL Urine WBC (Auto) (0.0-6.0) /HPF - Imaging and Cardiology Chest x-ray: image reviewed (No evidence of acute lung disease) Assessment and Plan 57 y/o male with Vfib arrest secondary to CAD and complete LAD occlusion 1. Will attempt extubation.] 2. Per cards note, EF is 30%, will give a one time dose of lasix with extubation 3. ASA, PLAVIX, BB, per Cards ok to give Statin even with allergy ( on rounds discussed that cards spoke with mother about this) 4. Likely ready for transfer out of unit tomorrow. CCT 31 minutes.
--- NOTE | 2018-06-11 14:24 | Progress Note ---
Assessment and Plan Assessment and plan: Patient is 57 yo man without chronic medical problems who presented to [facility] ED with Chest pains. While he was in the waiting room, he had a syncopal episode. He was brought back into the emergency room where he had cardiac arrest and CPR was started. Patient was shocked 3 for V. fib, he was taken emergently to the [facility] where a stent was placed in the LAD. Acute respiratory failure, s/p Intubation and now extubated Cardiac arrest SIRS with organ dysfunction, poa, no sepsis without source: will stop abx STEMI with cardiac stent to LAD Status post V. fib Hypokalemia Cardiogenic syncope Prolonged inpatient services 32 minutes History Interval history: Patient was seen and examined. Follow-up on current diagnosis of chest pains. Overnight uneventful. Patient denies any nausea/vomiting or severe headaches. Imaging, nursing note, chart, labs and old chart reviewed. Discussed with patient and mother at bedside. He doesn't remember much. Hospitalist Physical - Physical exam Narrative exam: Gen: WDWN, NAD, Awake, Alert, Orientated HEENT: NCAT, EOMI, PERRL, OP Clear Neck: supple, no adenopathy, no thyromegaly, no JVD CVS/Heart: RRR, normal S1S2, pulses present bilaterally Chest/Lungs: CTA B, Symmetrical chest expansion, good air entry bilaterally GI/Abdomen: soft, NTND, good bowel sounds, no guarding or rebound /Bladder: no suprapubic tenderness, no CVA or paraspinal tenderness Extermity/Skin: no c/c/e, no obvious rash MSK: FROM x 4 Neuro: CN 2-12 grossly intact, no new focal deficits Psych: calm - Constitutional Vitals: Temp Pulse Resp BP Pulse Ox 97.2 F L 88 25 H 125/90 93 06/11/18 12:00 06/11/18 12:31 06/11/18 12:31 06/11/18 12:31 06/11/18 12:31 General appearance: Present: no acute distress, well-nourished Results - Labs CBC & Chem 7: 06/11/18 04:58 06/11/18 04:58 Labs: Laboratory Last Values WBC 24.7 K/mm3 (4.5-11.0) H 06/11/18 04:58 RBC 4.46 M/mm3 (3.65-5.03) 06/11/18 04:58 Hgb 12.6 gm/dl (11.8-15.2) 06/11/18 04:58 Hct 37.6 % (35.5-45.6) D 06/11/18 04:58 MCV 84 fl (84-94) 06/11/18 04:58 MCH 28 pg (28-32) 06/11/18 04:58 MCHC 34 % (32-34) 06/11/18 04:58 RDW 12.7 % (13.2-15.2) L 06/11/18 04:58 Plt Count 308 K/mm3 (140-440) 06/11/18 04:58 Lymph # [employer]print Trimmer 06/11/18 01:31 Add Manual Diff Complete 06/11/18 04:58 Total Counted 200 06/11/18 04:58 Seg Neutrophils % Blueprint Trimmer 06/11/18 04:58 Seg Neuts % (Manual) 86.5 % (40.0-70.0) H 06/11/18 04:58 Band Neutrophils % 1.5 % 06/11/18 04:58 Lymphocytes % (Manual) 7.5 % (13.4-35.0) L 06/11/18 04:58 Reactive Lymphs % (Man) 0 % 06/11/18 04:58 Monocytes % (Manual) 4.5 % (0.0-7.3) 06/11/18 04:58 Eosinophils % (Manual) 0 % (0.0-4.3) 06/11/18 04:58 Basophils % (Manual) 0 % (0.0-1.8) 06/11/18 04:58 Metamyelocytes % 0 % 06/11/18 04:58 Myelocytes % 0 % 06/11/18 04:58 Promyelocytes % 0 % 06/11/18 04:58 Blast Cells % 0 % 06/11/18 04:58 Nucleated RBC % Not Reportable 06/11/18 04:58 Seg Neutrophils # Man 21.4 K/mm3 (1.8-7.7) H 06/11/18 04:58 Band Neutrophils # 0.4 K/mm3 06/11/18 04:58 Lymphocytes # (Manual) 1.9 K/mm3 (1.2-5.4) 06/11/18 04:58 Abs React Lymphs (Man) 0.0 K/mm3 06/11/18 04:58 Monocytes # (Manual) 1.1 K/mm3 (0.0-0.8) H 06/11/18 04:58 Eosinophils # (Manual) 0.0 K/mm3 (0.0-0.4) 06/11/18 04:58 Basophils # (Manual) 0.0 K/mm3 (0.0-0.1) 06/11/18 04:58 Metamyelocytes # 0.0 K/mm3 06/11/18 04:58 Myelocytes # 0.0 K/mm3 06/11/18 04:58 Promyelocytes # 0.0 K/mm3 06/11/18 04:58 Blast Cells # 0.0 K/mm3 06/11/18 04:58 WBC Morphology Not Reportable 06/11/18 04:58 Hypersegmented Neuts Not Reportable 06/11/18 04:58 Hyposegmented Neuts Not Reportable 06/11/18 04:58 Hypogranular Neuts Not Reportable 06/11/18 04:58 Smudge Cells Not Reportable 06/11/18 04:58 Toxic Granulation Not Reportable 06/11/18 04:58 Toxic Vacuolation Not Reportable 06/11/18 04:58 Dohle Bodies Not Reportable 06/11/18 04:58 Pelger-Huet Anomaly Not Reportable 06/11/18 04:58 Zander Rods Not Reportable 06/11/18 04:58 Platelet Estimate Consistent w auto 06/11/18 04:58 Clumped Platelets Not Reportable 06/11/18 04:58 Plt Clumps, EDTA Not Reportable 06/11/18 04:58 Large Platelets Not Reportable 06/11/18 04:58 Giant Platelets Not Reportable 06/11/18 04:58 Platelet Satelliting Not Reportable 06/11/18 04:58 Plt Morphology Comment Not Reportable 06/11/18 04:58 RBC Morphology Normal 06/11/18 04:58 Dimorphic RBCs Not Reportable 06/11/18 04:58 Polychromasia Not Reportable 06/11/18 04:58 Hypochromasia Not Reportable 06/11/18 04:58 Poikilocytosis Not Reportable 06/11/18 04:58 Anisocytosis Not Reportable 06/11/18 04:58 Microcytosis Not Reportable 06/11/18 04:58 Macrocytosis Not Reportable 06/11/18 04:58 Spherocytes Not Reportable 06/11/18 04:58 Pappenheimer Bodies Not Reportable 06/11/18 04:58 Sickle Cells Not Reportable 06/11/18 04:58 Target Cells Not Reportable 06/11/18 04:58 Tear Drop Cells Not Reportable 06/11/18 04:58 Ovalocytes Not Reportable 06/11/18 04:58 Helmet Cells Not Reportable 06/11/18 04:58 [place] Bodies Not Reportable 06/11/18 04:58 [place] Rings Not Reportable 06/11/18 04:58 Yenny Cells Not Reportable 06/11/18 04:58 Bite Cells Not Reportable 06/11/18 04:58 Crenated Cell Not Reportable 06/11/18 04:58 Elliptocytes Not Reportable 06/11/18 04:58 Acanthocytes (Spur) Not Reportable 06/11/18 04:58 Rouleaux Not Reportable 06/11/18 04:58 Hemoglobin C Crystals Not Reportable 06/11/18 04:58 Schistocytes Not Reportable 06/11/18 04:58 Malaria parasites Not Reportable 06/11/18 04:58 Joel Bodies Not Reportable 06/11/18 04:58 Hem Pathologist Commnt No 06/11/18 04:58 PT 13.9 Sec. (12.2-14.9) 06/11/18 01:31 INR 1.03 (0.87-1.13) 06/11/18 01:31 APTT 29.2 Sec. (24.2-36.6) 06/11/18 01:31 POC ABG pH 7.419 (7.35-7.45) 06/11/18 04:25 POC ABG pCO2 39.1 (35-45) 06/11/18 04:25 POC ABG pO2 426 (80-105) H 06/11/18 04:25 POC ABG HCO3 25.3 06/11/18 04:25 POC ABG Total CO2 26 06/11/18 04:25 POC ABG O2 Sat 100 06/11/18 04:25 POC ABG Base Excess 1 06/11/18 04:25 FiO2 100 % 06/11/18 04:25 Sodium 137 mmol/L (137-145) 06/11/18 04:58 Potassium 4.0 mmol/L (3.6-5.0) D 06/11/18 04:58 Chloride 102.1 mmol/L (98-107) 06/11/18 04:58 Carbon Dioxide 23 mmol/L (22-30) 06/11/18 04:58 Anion Gap 16 mmol/L 06/11/18 04:58 BUN 17 mg/dL (9-20) 06/11/18 04:58 Creatinine 1.1 mg/dL (0.8-1.5) 06/11/18 04:58 Estimated GFR > 60 ml/min 06/11/18 04:58 BUN/Creatinine Ratio 15 % 06/11/18 04:58 Glucose 195 mg/dL (75-100) H 06/11/18 04:58 POC Glucose 187 (70-105) H 06/11/18 11:58 Lactic Acid 3.00 mmol/L (0.7-2.0) H* 06/11/18 04:58 Calcium 8.6 mg/dL (8.4-10.2) D 06/11/18 04:58 Total Bilirubin 0.20 mg/dL (0.1-1.2) 06/11/18 01:31 AST 56 units/L (5-40) H 06/11/18 01:31 ALT 58 units/L (7-56) H 06/11/18 01:31 Alkaline Phosphatase 79 units/L (35-129) 06/11/18 01:31 Ammonia 62.0 umol/L (25-60) H 06/11/18 01:31 Total Creatine Kinase 2150 units/L (55-170) H 06/11/18 11:26 CK-MB (CK-2) 243.4 ng/mL (0.0-4.0) H 06/11/18 11:26 CK-MB (CK-2) Rel Index 11.3 (0-4) H 06/11/18 11:26 Troponin T 1.320 ng/mL (0.00-0.029) H* D 06/11/18 11:26 NT-Pro-B Natriuret Pep 1466 pg/mL (0-900) H 06/11/18 01:31 Total Protein 5.9 g/dL (6.3-8.2) L 06/11/18 01:31 Albumin 3.8 g/dL (3.9-5) L 06/11/18 01:31 Albumin/Globulin Ratio 1.8 % 06/11/18 01:31 Triglycerides 41 mg/dL (2-149) 06/11/18 04:58 Cholesterol 140 mg/dL (50-199) 06/11/18 04:58 LDL Cholesterol Direct 103 mg/dL (50-130) 06/11/18 04:58 HDL Cholesterol 41 mg/dL (40-59) 06/11/18 04:58 Cholesterol/HDL Ratio 3.41 % 06/11/18 04:58 TSH 7.520 mlU/mL (0.270-4.200) H 06/11/18 01:31 Thyroxine (T4) 7.1 ug/dL (4.0-12.0) 06/11/18 04:58 Urine Color Yellow (Yellow) 06/11/18 01:31 Urine Turbidity Turbid (Clear) 06/11/18 01:31 Urine pH 6.0 (5.0-7.0) 06/11/18 01:31 Ur Specific [place] 1.027 (1.003-1.030) 06/11/18 01:31 Urine Protein 100 mg/dl mg/dL (Negative) 06/11/18 01:31 Urine Glucose (UA) Negative mg/dL (Negative) 06/11/18 01:31 Urine Ketones Trace mg/dL (Negative) 06/11/18 01:31 Urine Blood Negative (Negative) 06/11/18 01:31 Urine Nitrite Negative (Negative) 06/11/18 01:31 Urine Bilirubin Negative (Negative) 06/11/18 01:31 Urine Urobilinogen < 2.0 mg/dL (<2.0) 06/11/18 01:31 Ur Leukocyte Esterase Trace (Negative) 06/11/18 01:31 Urine WBC (Auto) 11.0 /HPF (0.0-6.0) H 06/11/18 01:31 Urine RBC (Auto) 36.0 /HPF (0.0-6.0) 06/11/18 01:31 Urine Bacteria (Auto) 4+ /HPF (Negative) 06/11/18 01:31 Urine Mucus 3+ /HPF 06/11/18 01:31 Urine Yeast (Budding) 3+ /HPF 06/11/18 01:31 Urine Sperm 3+ /HPF (SERVICE CLEANER) 06/11/18 01:31 Urine Opiates Screen Presumptive positive 06/11/18 01:31 Urine Methadone Screen Presumptive negative 06/11/18 01:31 Ur Barbiturates Screen Presumptive negative 06/11/18 01:31 Ur Phencyclidine Scrn Presumptive negative 06/11/18 01:31 Ur Amphetamines Screen Presumptive negative 06/11/18 01:31 U Benzodiazepines Scrn Presumptive negative 06/11/18 01:31 Urine Cocaine Screen Presumptive negative 06/11/18 01:31 U Marijuana (THC) Screen Presumptive negative 06/11/18 01:31 Drugs of Abuse Note Disclamer 06/11/18 01:31 Plasma/Serum Alcohol < 0.01 % (0-0.07) 06/11/18 01:31 Blood Type O NEGATIVE 06/11/18 01:31 Antibody Screen Negative 06/11/18 01:31 Nutrition/Malnutrition Assess - Dietary Evaluation Nutrition/Malnutrition Findings: Nutrition Notes Start: 06/11/18 13:34 Freq: Status: Active Protocol: Document 06/11/18 13:34 ALEXSANDER (Rec: 06/11/18 13:39 ALEXSANDER [email or web address]) Nutrition Notes Need for Assessment generated from: MD Order Initial or Follow up Assessment Current Diagnoses Sepsis Other Pertinent Diagnosis s/p cardiac arrest, s/p vfib Current Diet Cl liq Labs/Tests BG 195 Ammonia 62 K 2.6 Ca 10.8 TSH 7.52 Medications Amiodarone gtt, Nitroglycerin gtt Height 5 ft 8 in Weight 79.379 kg [place] Body Weight (lbs) 154.0 BMI 26.6 Subjective/Other Information RD consulted to evaluate nutritional intake. Pt extubated this am and diet advanced for dinner tonight. Burn Absent Trauma Absent #1 Nutrition Diagnoses Predicted suboptimal energy intake Etiology recent extubation As Evidenced by Signs and Symptoms diet advanced to cl liq (does not provide adequate calories and pro to meet needs) Is patient on ventilator? No Is Patient Ambulatory and/or Out of Bed No REE-([facility]-confined to bed) [phone] Calculation Used for Recommendations Luigi Serrano Additional Notes Pro needs 1.2-2g/k-159g/ day Fluid needs 1ml/kcal Nutrition Intervention Change Diet Order: Continue current diet order; advance as tolerated Goal #1 PO tolerance Goal #2 Diet advancement to meet nutrient needs Anticipated Discharge Needs: None identified at this time Follow-Up By: 06/13/18 Additional Comments F/U: PO tolerance, diet advancement
[2018-06-11] MEDS ORDERED: BENADRYL IV PRN (14:38)
[2018-06-11] MEDS ORDERED: D50W (25GM) Syringe IV PRN (14:40)
[2018-06-11 16:18] LABS: BUN/Creatinine Ratio 16; Blood Urea Nitrogen 16 mg/dL (9-20); Calcium 8.9 mg/dL (8.4-10.2); Hemolysis Index 35
[2018-06-11] MEDS ORDERED: TRIDIL DRIP 50MG/250ML 50 MG/250 ML BOTTLE IV SCH (17:40)
[2018-06-11] MEDS: HumaLOG SUB-Q SCH ×2 (17:40→22:20)
[2018-06-11] MEDS ORDERED: HumaLOG SUB-Q SCH (18:00)
[2018-06-11] MEDS: MORPHINE IV PRN ×2 (19:22→21:06)
[2018-06-12] MEDS: CORDARONE 900 MG in D5W 482 ML IV SCH (01:59)
[2018-06-12] MEDS: MORPHINE IV PRN ×3 (02:52→10:20)
--- NOTE | 2018-06-12 03:49 | XRay Report ---
FINAL REPORT PROCEDURE: XR CHEST 1V AP TECHNIQUE: Chest radiograph anteroposterior view. CPT 05077 HISTORY: post pci COMPARISON: 06/11/2018 FINDINGS: Heart: Normal. Mediastinum/Vessels: Normal. Lungs/Pleural space: Normal. Bony thorax: No acute osseous abnormality. Life support devices: None. IMPRESSION: No acute cardiopulmonary abnormality.
[2018-06-12 05:52] LABS: Hematocrit 37.3 % (35.5-45.6); Hemoglobin 12.5 gm/dl (11.8-15.2); Mean Corpuscular HGB Conc 34 % (32-34); Mean Corpuscular Volume 85 fl (84-94); Platelet Count 248 K/mm3 (140-440); Red Blood Count 4.41 M/mm3 (3.65-5.03); Red Cell Distribution Width 13.3 % (13.2-15.2)
[2018-06-12 06:13] LABS: Creatine Kinase MB 207.4 ng/mL (0.0-4.0)
[2018-06-12 06:15] LABS: BUN/Creatinine Ratio 16; Blood Urea Nitrogen 18 mg/dL (9-20); Calcium 8.8 mg/dL (8.4-10.2); Hemolysis Index 37
[2018-06-12] MEDS: LOPRESSOR PO SCH ×3 (06:31→21:39)
[2018-06-12] MEDS: HumaLOG SUB-Q SCH ×4 (07:30→22:00)
--- NOTE | 2018-06-12 07:49 | Progress Note ---
Assessment and Plan Assessment and plan: Patient is 57 yo man without chronic medical problems who presented to [facility] ED with Chest pains. While he was in the waiting room, he had a syncopal episode. He was brought back into the emergency room where he had cardiac arrest and CPR was started. Patient was shocked 3 for V. fib, he was taken emergently to the dental laboratory technician apprentice where a stent was placed in the LAD. Acute respiratory failure, s/p Intubation and now extubated 06/11/17: wean o2 as appropriate Cardiac arrest, with successful resuscitation STEMI with cardiac stent to LAD: Cardiology is following, still on IV ntg drip Continous right sided CP, possible related to defibrillation/chest compression; continue pain management SIRS with organ dysfunction, poa, no sepsis without source: will stop abx and monitor, urine culture pending, consult ID, WBC increasing Status post V. fib Hypokalemia resolved: monitor bmp closely Cardiogenic syncope CCT 31 minutes History Interval history: Patient was seen and examined. Follow-up on current diagnosis of chest pains, right sided chest pains. Overnight uneventful. Patient denies any nausea/vomiting or severe headaches. Imaging, nursing note, chart, labs and old chart reviewed. Discussed with patient and mother at bedside. He doesn't remember much. Hospitalist Physical - Physical exam Narrative exam: Gen: WDWN, NAD, Awake, Alert, Orientated x 2, he think he is at [place] again today HEENT: NCAT, EOMI, PERRL, OP Clear Neck: supple, no adenopathy, no thyromegaly, no JVD CVS/Heart: RRR, normal S1S2, pulses present bilaterally Chest/Lungs: CTA B, Symmetrical chest expansion, good air entry bilaterally GI/Abdomen: soft, NTND, good bowel sounds, no guarding or rebound /Bladder: no suprapubic tenderness, no CVA or paraspinal tenderness Extermity/Skin: no c/c/e, no obvious rash MSK: FROM x 4 Neuro: CN 2-12 grossly intact, no new focal deficits Psych: calm - Constitutional Vitals: Temp Pulse Resp BP Pulse Ox 98.8 F 89 20 115/78 94 06/12/18 04:00 06/12/18 06:31 06/12/18 06:31 06/12/18 06:31 06/12/18 06:33 General appearance: Present: no acute distress, well-nourished Results - Labs CBC & Chem 7: 06/12/18 04:41 06/12/18 04:41 Labs: Laboratory Last Values WBC 30.1 K/mm3 (4.5-11.0) H 06/12/18 04:41 RBC 4.41 M/mm3 (3.65-5.03) 06/12/18 04:41 Hgb 12.5 gm/dl (11.8-15.2) 06/12/18 04:41 Hct 37.3 % (35.5-45.6) 06/12/18 04:41 MCV 85 fl (84-94) 06/12/18 04:41 MCH 28 pg (28-32) 06/12/18 04:41 MCHC 34 % (32-34) 06/12/18 04:41 RDW 13.3 % (13.2-15.2) 06/12/18 04:41 Plt Count 248 K/mm3 (140-440) 06/12/18 04:41 Lymph # Gas Engine Mechanic 06/11/18 01:31 Add Manual Diff Complete 06/11/18 04:58 Total Counted 200 06/11/18 04:58 Seg Neutrophils % Gas Engine Mechanic 06/11/18 04:58 Seg Neuts % (Manual) 86.5 % (40.0-70.0) H 06/11/18 04:58 Band Neutrophils % 1.5 % 06/11/18 04:58 Lymphocytes % (Manual) 7.5 % (13.4-35.0) L 06/11/18 04:58 Reactive Lymphs % (Man) 0 % 06/11/18 04:58 Monocytes % (Manual) 4.5 % (0.0-7.3) 06/11/18 04:58 Eosinophils % (Manual) 0 % (0.0-4.3) 06/11/18 04:58 Basophils % (Manual) 0 % (0.0-1.8) 06/11/18 04:58 Metamyelocytes % 0 % 06/11/18 04:58 Myelocytes % 0 % 06/11/18 04:58 Promyelocytes % 0 % 06/11/18 04:58 Blast Cells % 0 % 06/11/18 04:58 Nucleated RBC % Not Reportable 06/11/18 04:58 Seg Neutrophils # Man 21.4 K/mm3 (1.8-7.7) H 06/11/18 04:58 Band Neutrophils # 0.4 K/mm3 06/11/18 04:58 Lymphocytes # (Manual) 1.9 K/mm3 (1.2-5.4) 06/11/18 04:58 Abs React Lymphs (Man) 0.0 K/mm3 06/11/18 04:58 Monocytes # (Manual) 1.1 K/mm3 (0.0-0.8) H 06/11/18 04:58 Eosinophils # (Manual) 0.0 K/mm3 (0.0-0.4) 06/11/18 04:58 Basophils # (Manual) 0.0 K/mm3 (0.0-0.1) 06/11/18 04:58 Metamyelocytes # 0.0 K/mm3 06/11/18 04:58 Myelocytes # 0.0 K/mm3 06/11/18 04:58 Promyelocytes # 0.0 K/mm3 06/11/18 04:58 Blast Cells # 0.0 K/mm3 06/11/18 04:58 WBC Morphology Not Reportable 06/11/18 04:58 Hypersegmented Neuts Not Reportable 06/11/18 04:58 Hyposegmented Neuts Not Reportable 06/11/18 04:58 Hypogranular Neuts Not Reportable 06/11/18 04:58 Smudge Cells Not Reportable 06/11/18 04:58 Toxic Granulation Not Reportable 06/11/18 04:58 Toxic Vacuolation Not Reportable 06/11/18 04:58 Dohle Bodies Not Reportable 06/11/18 04:58 Pelger-Huet Anomaly Not Reportable 06/11/18 04:58 Zander Rods Not Reportable 06/11/18 04:58 Platelet Estimate Consistent w auto 06/11/18 04:58 Clumped Platelets Not Reportable 06/11/18 04:58 Plt Clumps, EDTA Not Reportable 06/11/18 04:58 Large Platelets Not Reportable 06/11/18 04:58 Giant Platelets Not Reportable 06/11/18 04:58 Platelet Satelliting Not Reportable 06/11/18 04:58 Plt Morphology Comment Not Reportable 06/11/18 04:58 RBC Morphology Normal 06/11/18 04:58 Dimorphic RBCs Not Reportable 06/11/18 04:58 Polychromasia Not Reportable 06/11/18 04:58 Hypochromasia Not Reportable 06/11/18 04:58 Poikilocytosis Not Reportable 06/11/18 04:58 Anisocytosis Not Reportable 06/11/18 04:58 Microcytosis Not Reportable 06/11/18 04:58 Macrocytosis Not Reportable 06/11/18 04:58 Spherocytes Not Reportable 06/11/18 04:58 Pappenheimer Bodies Not Reportable 06/11/18 04:58 Sickle Cells Not Reportable 06/11/18 04:58 Target Cells Not Reportable 06/11/18 04:58 Tear Drop Cells Not Reportable 06/11/18 04:58 Ovalocytes Not Reportable 06/11/18 04:58 Helmet Cells Not Reportable 06/11/18 04:58 [place] Bodies Not Reportable 06/11/18 04:58 [place] Rings Not Reportable 06/11/18 04:58 [place] Cells Not Reportable 06/11/18 04:58 Bite Cells Not Reportable 06/11/18 04:58 Crenated Cell Not Reportable 06/11/18 04:58 Elliptocytes Not Reportable 06/11/18 04:58 Acanthocytes (Spur) Not Reportable 06/11/18 04:58 Rouleaux Not Reportable 06/11/18 04:58 Hemoglobin C Crystals Not Reportable 06/11/18 04:58 Schistocytes Not Reportable 06/11/18 04:58 Malaria parasites Not Reportable 06/11/18 04:58 Joel Bodies Not Reportable 06/11/18 04:58 Hem Pathologist Commnt No 06/11/18 04:58 PT 13.9 Sec. (12.2-14.9) 06/11/18 01:31 INR 1.03 (0.87-1.13) 06/11/18 01:31 APTT 29.2 Sec. (24.2-36.6) 06/11/18 01:31 POC ABG pH 7.419 (7.35-7.45) 06/11/18 04:25 POC ABG pCO2 39.1 (35-45) 06/11/18 04:25 POC ABG pO2 426 (80-105) H 06/11/18 04:25 POC ABG HCO3 25.3 06/11/18 04:25 POC ABG Total CO2 26 06/11/18 04:25 POC ABG O2 Sat 100 06/11/18 04:25 POC ABG Base Excess 1 06/11/18 04:25 FiO2 100 % 06/11/18 04:25 Sodium 135 mmol/L (137-145) L 06/12/18 04:41 Potassium 4.2 mmol/L (3.6-5.0) 06/12/18 04:41 Chloride 98.2 mmol/L (98-107) 06/12/18 04:41 Carbon Dioxide 22 mmol/L (22-30) 06/12/18 04:41 Anion Gap 19 mmol/L 06/12/18 04:41 BUN 18 mg/dL (9-20) 06/12/18 04:41 Creatinine 1.1 mg/dL (0.8-1.5) 06/12/18 04:41 Estimated GFR > 60 ml/min 06/12/18 04:41 BUN/Creatinine Ratio 16 % 06/12/18 04:41 Glucose 119 mg/dL (75-100) H 06/12/18 04:41 POC Glucose 127 (70-105) H 06/11/18 21:52 Hemoglobin A1c 5.9 % (4-6) 06/12/18 04:41 Lactic Acid 3.80 mmol/L (0.7-2.0) H* 06/11/18 17:34 Calcium 8.8 mg/dL (8.4-10.2) 06/12/18 04:41 Magnesium 2.10 mg/dL (1.7-2.3) 06/12/18 04:41 Total Bilirubin 0.20 mg/dL (0.1-1.2) 06/11/18 01:31 AST 56 units/L (5-40) H 06/11/18 01:31 ALT 58 units/L (7-56) H 06/11/18 01:31 Alkaline Phosphatase 79 units/L (35-129) 06/11/18 01:31 Ammonia 62.0 umol/L (25-60) H 06/11/18 01:31 Total Creatine Kinase 2243 units/L (55-170) H 06/12/18 04:41 CK-MB (CK-2) 207.4 ng/mL (0.0-4.0) H 06/12/18 04:41 CK-MB (CK-2) Rel Index 9.2 (0-4) H 06/12/18 04:41 Troponin T 2.320 ng/mL (0.00-0.029) H* D 06/12/18 04:41 NT-Pro-B Natriuret Pep 1466 pg/mL (0-900) H 06/11/18 01:31 Total Protein 5.9 g/dL (6.3-8.2) L 06/11/18 01:31 Albumin 3.8 g/dL (3.9-5) L 06/11/18 01:31 Albumin/Globulin Ratio 1.8 % 06/11/18 01:31 Triglycerides 41 mg/dL (2-149) 06/11/18 04:58 Cholesterol 140 mg/dL (50-199) 06/11/18 04:58 LDL Cholesterol Direct 103 mg/dL (50-130) 06/11/18 04:58 HDL Cholesterol 41 mg/dL (40-59) 06/11/18 04:58 Cholesterol/HDL Ratio 3.41 % 06/11/18 04:58 TSH 7.520 mlU/mL (0.270-4.200) H 06/11/18 01:31 Thyroxine (T4) 7.1 ug/dL (4.0-12.0) 06/11/18 04:58 Urine Color Yellow (Yellow) 06/11/18 01:31 Urine Turbidity Turbid (Clear) 06/11/18 01:31 Urine pH 6.0 (5.0-7.0) 06/11/18 01:31 Ur Specific [place] 1.027 (1.003-1.030) 06/11/18 01:31 Urine Protein 100 mg/dl mg/dL (Negative) 06/11/18 01:31 Urine Glucose (UA) Negative mg/dL (Negative) 06/11/18 01:31 Urine Ketones Trace mg/dL (Negative) 06/11/18 01:31 Urine Blood Negative (Negative) 06/11/18 01:31 Urine Nitrite Negative (Negative) 06/11/18 01:31 Urine Bilirubin Negative (Negative) 06/11/18 01:31 Urine Urobilinogen < 2.0 mg/dL (<2.0) 06/11/18 01:31 Ur Leukocyte Esterase Trace (Negative) 06/11/18 01:31 Urine WBC (Auto) 11.0 /HPF (0.0-6.0) H 06/11/18 01:31 Urine RBC (Auto) 36.0 /HPF (0.0-6.0) 06/11/18 01:31 Urine Bacteria (Auto) 4+ /HPF (Negative) 06/11/18 01:31 Urine Mucus 3+ /HPF 06/11/18 01:31 Urine Yeast (Budding) 3+ /HPF 06/11/18 01:31 Urine Sperm 3+ /HPF (CAR WASHER) 06/11/18 01:31 Urine Opiates Screen Presumptive positive 06/11/18 01:31 Urine Methadone Screen Presumptive negative 06/11/18 01:31 Ur Barbiturates Screen Presumptive negative 06/11/18 01:31 Ur Phencyclidine Scrn Presumptive negative 06/11/18 01:31 Ur Amphetamines Screen Presumptive negative 06/11/18 01:31 U Benzodiazepines Scrn Presumptive negative 06/11/18 01:31 Urine Cocaine Screen Presumptive negative 06/11/18 01:31 U Marijuana (THC) Screen Presumptive negative 06/11/18 01:31 Drugs of Abuse Note Disclamer 06/11/18 01:31 Plasma/Serum Alcohol < 0.01 % (0-0.07) 06/11/18 01:31 Blood Type O NEGATIVE 06/11/18 01:31 Antibody Screen Negative 06/11/18 01:31 Nutrition/Malnutrition Assess - Dietary Evaluation Nutrition/Malnutrition Findings: Nutrition Notes Start: 06/11/18 13:34 Freq: Status: Active Protocol: Document 06/11/18 13:34 ALEXSANDER (Rec: 06/11/18 13:39 ALEXSANDER [id number]) Nutrition Notes Need for Assessment generated from: MD Order Initial or Follow up Assessment Current Diagnoses Sepsis Other Pertinent Diagnosis s/p cardiac arrest, s/p vfib Current Diet Cl liq Labs/Tests BG 195 Ammonia 62 K 2.6 Ca 10.8 TSH 7.52 Medications Amiodarone gtt, Nitroglycerin gtt Height 5 ft 8 in Weight 79.379 kg [place] Body Weight (lbs) 154.0 BMI 26.6 Subjective/Other Information RD consulted to evaluate nutritional intake. Pt extubated this am and diet advanced for dinner tonight. Burn Absent Trauma Absent #1 Nutrition Diagnoses Predicted suboptimal energy intake Etiology recent extubation As Evidenced by Signs and Symptoms diet advanced to cl liq (does not provide adequate calories and pro to meet needs) Is patient on ventilator? No Is Patient Ambulatory and/or Out of Bed No REE-([facility]-confined to bed) [phone] Calculation Used for Recommendations [facility] Additional Notes Pro needs 1.2-2g/k-159g/ day Fluid needs 1ml/kcal Nutrition Intervention Change Diet Order: Continue current diet order; advance as tolerated Goal #1 PO tolerance Goal #2 Diet advancement to meet nutrient needs Anticipated Discharge Needs: None identified at this time Follow-Up By: 06/13/18 Additional Comments F/U: PO tolerance, diet advancement
[2018-06-12 08:16] LABS: Basophils % (Manual) 0 % (0.0-1.8); Total Cells Counted 100
[2018-06-12 08:17] LABS: Anisocytosis 1+; Eosinophils % (Manual) 0 % (0.0-4.3); Platelet Estimate Consistent w Auto
[2018-06-12] MEDS: LOVENOX SUB-Q SCH (10:19)
[2018-06-12] MEDS: ZESTRIL PO SCH (10:19)
[2018-06-12] MEDS: ASPIRIN PO SCH (10:19)
[2018-06-12] MEDS: PLAVIX PO SCH (10:19)
--- NOTE | 2018-06-12 11:18 | Progress Note ---
Addendum entered and electronically signed by ELIAS DEGROOT MD 06/12/18 11:30: Patient looks and feels better, following his acute primary LAD intervention. Fredy stone has no chest pain, feels well no cardiac complaints. On telemetry, he has a stable normal sinus rhythm, and stable blood pressure. Recommendations: We will increase beta karis therapy with metoprolol. Transition intravenous amiodarone to oral. Transition intravenous to oral nitrates. Out of bed, transfer to telemetry and encourage ambulation. On discharge, he will need lifevest monitoring for his presenting ventricular defibrillation arrest. Original Note: Assessment and Plan Cardiac arrest manifested by ventricular fibrillation and ventricular tachycardia. Acute anterolateral wall ST elevation myocardial infarction s/p PCI of the left anterior descending artery in its mid segment using drug- eluting stents EF 20-30% by echocardiogram Leukocytosis Recommendations: Transition to oral amiodarone for VT/VF suppression in addition to metoprolol. Continue medical therapy for ischemic cardiomyopathy and coronary artery disease to include DAPT, beta blockers, afterload reduction agents, nitrates and statin therapy. Lifevest placement before discharge. Stable for transfer to [facility]. Subjective Date of service: 06/12/18 Interval history: Patient is resting in bed comfortably. He denies chest pain. No reported cardiac events overnight. Objective Vital Signs Temp Pulse Pulse Resp BP Pulse Ox 06/12/18 10:19 92 H 97/58 06/12/18 09:15 86 23 103/64 94 06/12/18 09:00 87 11 L 103/62 94 06/12/18 08:45 89 13 108/64 95 06/12/18 08:30 91 H 20 102/67 93 06/12/18 08:15 84 20 110/65 95 06/12/18 08:00 98.8 F 83 22 116/72 06/12/18 07:45 88 21 118/74 94 06/12/18 07:30 86 20 118/67 96 06/12/18 07:15 83 22 113/70 96 06/12/18 07:01 20 06/12/18 07:00 84 21 113/66 95 06/12/18 06:45 88 22 120/77 06/12/18 06:33 94 06/12/18 06:31 89 20 115/78 06/12/18 06:30 85 23 115/75 06/12/18 06:15 89 14 121/73 91 06/12/18 06:00 91 H 15 124/68 94 06/12/18 05:45 84 21 126/72 06/12/18 05:30 86 22 116/76 93 06/12/18 05:15 86 19 109/64 94 06/12/18 05:00 84 17 106/62 96 06/12/18 04:45 90 24 113/64 95 06/12/18 04:30 91 H 14 107/68 93 06/12/18 04:15 91 H 15 121/77 06/12/18 04:00 98.8 F 83 101 H 19 116/73 95 06/12/18 03:45 84 19 113/75 06/12/18 03:30 86 19 114/72 06/12/18 03:22 19 06/12/18 03:15 86 19 117/72 06/12/18 03:00 92 H 18 113/72 94 06/12/18 02:52 11 L 06/12/18 02:00 94 H 21 127/78 97 06/12/18 01:31 101 H 21 100 06/12/18 01:00 87 20 133/82 97 06/12/18 00:00 90 21 139/88 95 06/11/18 23:37 98.5 F 06/11/18 23:05 92 H 20 140/88 96 06/11/18 23:00 91 H 20 140/88 06/11/18 22:41 90 20 137/91 96 06/11/18 22:00 88 19 136/87 06/11/18 21:00 92 H 19 144/97 06/11/18 20:48 98 H 145/79 06/11/18 20:00 98.2 F 89 22 145/95 94 06/11/18 19:00 96 H 28 H 157/98 06/11/18 18:00 92 H 20 146/99 96 06/11/18 17:00 94 H 18 150/104 06/11/18 16:00 97.6 F 93 H 21 152/102 06/11/18 15:00 91 H 20 151/103 06/11/18 14:33 90 155/105 06/11/18 14:00 92 H 22 151/105 92 06/11/18 13:00 105 H 22 117/76 92 06/11/18 12:31 88 25 H 125/90 93 06/11/18 12:15 89 17 125/90 94 06/11/18 12:00 97.2 F L 87 16 125/90 94 06/11/18 11:45 88 20 138/97 06/11/18 11:30 86 19 141/96 06/11/18 11:15 88 18 137/96 - Physical Examination General: No Apparent Distress HEENT: Positive: PERRL Neck: Positive: trachea midline Cardiac: Positive: Reg Rate and Rhythm Lungs: Positive: Decreased Breath Sounds Neuro: Positive: Grossly Intact Abdomen: Positive: Soft Incision: Cardiac Cath Site (right groin; no hematoma.) Extremities: Absent: edema - Labs and Meds Cardiac Enzymes 06/11/18 06/12/18 Range/Units 11:26 04:41 CK-MB (CK-2) 243.4 H 207.4 H (0.0-4.0) ng/mL CBC 06/12/18 Range/Units 04:41 WBC 30.1 H (4.5-11.0) K/mm3 RBC 4.41 (3.65-5.03) M/mm3 Hgb 12.5 (11.8-15.2) gm/dl Hct 37.3 (35.5-45.6) % Plt Count 248 (140-440) K/mm3 Comprehensive Metabolic Panel 06/11/18 06/12/18 Range/Units 15:46 04:41 Sodium 138 135 L (137-145) mmol/L Potassium 4.9 D 4.2 (3.6-5.0) mmol/L Chloride 103.1 98.2 (98-107) mmol/L Carbon Dioxide 19 L 22 (22-30) mmol/L BUN 16 18 (9-20) mg/dL Creatinine 1.0 1.1 (0.8-1.5) mg/dL Glucose 160 H 119 H (75-100) mg/dL Calcium 8.9 8.8 (8.4-10.2) mg/dL - Imaging and Cardiology EKG: image reviewed
[2018-06-12] MEDS: CORDARONE PO SCH ×2 (12:00→21:40)
[2018-06-12] MEDS: IMDUR PO SCH (12:00)
--- NOTE | 2018-06-12 13:25 | Progress Note ---
Assessment and Plan 57 y/o male with Vfib arrest secondary to CAD and complete LAD occlusion 1. Medical management per cards 2. Wean FiO2 as tolerated 3. Would remain mindful of volume status 4. Agree with transfer out of unit. 5. Will likely sign off once out of unit Subjective Date of service: 06/12/18 Interval history: Successful extubation on yesterday. Breathing stable. Had chest pain yesterday evening. EKG was stable. Cards aware and put back on nitro. Tolerated the one time dose of lasix given post extubation yesterday. Down to 2 liters NC Objective Vital Signs - 12hr 06/12/18 06/12/18 06/12/18 01:31 02:00 02:52 Temperature Pulse Rate 94 H Pulse Rate [ 101 H Right Radial] Respiratory 21 21 11 L Rate Blood Pressure 127/78 O2 Sat by Pulse 100 97 Oximetry 06/12/18 06/12/18 06/12/18 03:00 03:15 03:22 Temperature Pulse Rate 92 H 86 Pulse Rate [ Right Radial] Respiratory 18 19 19 Rate Blood Pressure 113/72 117/72 O2 Sat by Pulse 94 Oximetry 06/12/18 06/12/18 06/12/18 03:30 03:45 04:00 Temperature 98.8 F Pulse Rate 86 84 83 Pulse Rate [ 101 H Right Radial] Respiratory 19 19 19 Rate Blood Pressure 114/72 113/75 116/73 O2 Sat by Pulse 95 Oximetry 06/12/18 06/12/18 06/12/18 04:15 04:30 04:45 Temperature Pulse Rate 91 H 91 H 90 Pulse Rate [ Right Radial] Respiratory 15 14 24 Rate Blood Pressure 121/77 107/68 113/64 O2 Sat by Pulse 93 95 Oximetry 06/12/18 06/12/18 06/12/18 05:00 05:15 05:30 Temperature Pulse Rate 84 86 86 Pulse Rate [ Right Radial] Respiratory 17 19 22 Rate Blood Pressure 106/62 109/64 116/76 O2 Sat by Pulse 96 94 93 Oximetry 06/12/18 06/12/18 06/12/18 05:45 06:00 06:15 Temperature Pulse Rate 84 91 H 89 Pulse Rate [ Right Radial] Respiratory 21 15 14 Rate Blood Pressure 126/72 124/68 121/73 O2 Sat by Pulse 94 91 Oximetry 06/12/18 06/12/18 06/12/18 06:30 06:31 06:33 Temperature Pulse Rate 85 89 Pulse Rate [ Right Radial] Respiratory 23 20 Rate Blood Pressure 115/75 115/78 O2 Sat by Pulse 94 Oximetry 06/12/18 06/12/18 06/12/18 06:45 07:00 07:01 Temperature Pulse Rate 88 84 Pulse Rate [ Right Radial] Respiratory 22 21 20 Rate Blood Pressure 120/77 113/66 O2 Sat by Pulse 95 Oximetry 06/12/18 06/12/18 06/12/18 07:15 07:30 07:45 Temperature Pulse Rate 83 86 88 Pulse Rate [ Right Radial] Respiratory 22 20 21 Rate Blood Pressure 113/70 118/67 118/74 O2 Sat by Pulse 96 96 94 Oximetry 06/12/18 06/12/18 06/12/18 08:00 08:15 08:30 Temperature 98.8 F Pulse Rate 83 84 91 H Pulse Rate [ Right Radial] Respiratory 22 20 20 Rate Blood Pressure 116/72 110/65 102/67 O2 Sat by Pulse 95 93 Oximetry 06/12/18 06/12/18 06/12/18 08:45 09:00 09:15 Temperature Pulse Rate 89 87 86 Pulse Rate [ Right Radial] Respiratory 13 11 L 23 Rate Blood Pressure 108/64 103/62 103/64 O2 Sat by Pulse 95 94 94 Oximetry 06/12/18 06/12/18 06/12/18 09:30 09:45 10:00 Temperature Pulse Rate 92 H 88 87 Pulse Rate [ Right Radial] Respiratory 15 20 21 Rate Blood Pressure 122/59 111/74 99/55 O2 Sat by Pulse 95 96 Oximetry 06/12/18 06/12/18 06/12/18 10:15 10:19 10:30 Temperature Pulse Rate 92 H 92 H 87 Pulse Rate [ Right Radial] Respiratory 18 22 Rate Blood Pressure 97/58 97/58 117/78 O2 Sat by Pulse 94 Oximetry 06/12/18 06/12/18 06/12/18 10:45 11:00 11:15 Temperature Pulse Rate 88 86 85 Pulse Rate [ Right Radial] Respiratory 23 21 20 Rate Blood Pressure 101/64 110/71 118/73 O2 Sat by Pulse 93 95 94 Oximetry 06/12/18 06/12/18 06/12/18 11:30 11:45 12:00 Temperature 99.2 F Pulse Rate 89 83 85 Pulse Rate [ Right Radial] Respiratory 21 24 24 Rate Blood Pressure 106/73 111/71 112/74 O2 Sat by Pulse 93 92 Oximetry 06/12/18 06/12/18 06/12/18 12:15 12:30 12:45 Temperature Pulse Rate 83 87 87 Pulse Rate [ Right Radial] Respiratory 23 14 19 Rate Blood Pressure 120/78 115/77 114/80 O2 Sat by Pulse 92 96 94 Oximetry CBC and BMP: 06/12/18 04:41 06/12/18 04:41 ABG, PT/INR, D-dimer: ABG POC ABG pH 7.419 (7.35-7.45) 06/11/18 04:25 POC ABG pCO2 39.1 (35-45) 06/11/18 04:25 POC ABG pO2 426 (80-105) H 06/11/18 04:25 POC ABG HCO3 25.3 06/11/18 04:25 POC ABG Total CO2 26 06/11/18 04:25 POC ABG O2 Sat 100 06/11/18 04:25 PT/INR, D-dimer PT 13.9 Sec. (12.2-14.9) 06/11/18 01:31 INR 1.03 (0.87-1.13) 06/11/18 01:31 Abnormal lab findings: Abnormal Labs 06/11/18 06/11/18 06/11/18 01:31 01:31 01:31 WBC 20.5 H RDW 13.1 L Seg Neuts % (Manual) Lymphocytes % (Manual) Seg Neutrophils # Man 12.3 H Lymphocytes # (Manual) 6.9 H Monocytes # (Manual) Eosinophils # (Manual) 0.5 H POC ABG pO2 Sodium Potassium 2.6 L* Chloride 96.9 L Carbon Dioxide Glucose 174 H POC Glucose Lactic Acid 9.10 H* Calcium 10.8 H AST 56 H ALT 58 H Ammonia Total Creatine Kinase CK-MB (CK-2) CK-MB (CK-2) Rel Index Troponin T 0.094 H NT-Pro-B Natriuret Pep 1466 H Total Protein 5.9 L Albumin 3.8 L TSH Urine WBC (Auto) 06/11/18 06/11/18 06/11/18 01:31 01:31 01:31 WBC RDW Seg Neuts % (Manual) Lymphocytes % (Manual) Seg Neutrophils # Man Lymphocytes # (Manual) Monocytes # (Manual) Eosinophils # (Manual) POC ABG pO2 Sodium Potassium Chloride Carbon Dioxide Glucose POC Glucose Lactic Acid Calcium AST ALT Ammonia 62.0 H Total Creatine Kinase CK-MB (CK-2) CK-MB (CK-2) Rel Index Troponin T NT-Pro-B Natriuret Pep Total Protein Albumin TSH 7.520 H Urine WBC (Auto) 11.0 H 06/11/18 06/11/18 06/11/18 04:25 04:58 04:58 WBC RDW Seg Neuts % (Manual) Lymphocytes % (Manual) Seg Neutrophils # Man Lymphocytes # (Manual) Monocytes # (Manual) Eosinophils # (Manual) POC ABG pO2 426 H Sodium Potassium Chloride Carbon Dioxide Glucose POC Glucose Lactic Acid 3.00 H* Calcium AST ALT Ammonia Total Creatine Kinase 1008 H CK-MB (CK-2) 89.4 H CK-MB (CK-2) Rel Index Troponin T 0.829 H* D NT-Pro-B Natriuret Pep Total Protein Albumin TSH Urine WBC (Auto) 06/11/18 06/11/18 06/11/18 04:58 04:58 11:26 WBC 24.7 H RDW 12.7 L Seg Neuts % (Manual) 86.5 H Lymphocytes % (Manual) 7.5 L Seg Neutrophils # Man 21.4 H Lymphocytes # (Manual) Monocytes # (Manual) 1.1 H Eosinophils # (Manual) POC ABG pO2 Sodium Potassium Chloride Carbon Dioxide Glucose 195 H POC Glucose Lactic Acid Calcium AST ALT Ammonia Total Creatine Kinase CK-MB (CK-2) CK-MB (CK-2) Rel Index Troponin T 1.320 H* D NT-Pro-B Natriuret Pep Total Protein Albumin TSH Urine WBC (Auto) 06/11/18 06/11/18 06/11/18 11:26 11:58 15:46 WBC RDW Seg Neuts % (Manual) Lymphocytes % (Manual) Seg Neutrophils # Man Lymphocytes # (Manual) Monocytes # (Manual) Eosinophils # (Manual) POC ABG pO2 Sodium Potassium Chloride Carbon Dioxide 19 L Glucose 160 H POC Glucose 187 H Lactic Acid Calcium AST ALT Ammonia Total Creatine Kinase 2150 H CK-MB (CK-2) 243.4 H CK-MB (CK-2) Rel Index 11.3 H Troponin T NT-Pro-B Natriuret Pep Total Protein Albumin TSH Urine WBC (Auto) 06/11/18 06/11/18 06/11/18 15:46 16:20 17:34 WBC RDW Seg Neuts % (Manual) Lymphocytes % (Manual) Seg Neutrophils # Man Lymphocytes # (Manual) Monocytes # (Manual) Eosinophils # (Manual) POC ABG pO2 Sodium Potassium Chloride Carbon Dioxide Glucose POC Glucose 152 H Lactic Acid 4.40 H* 3.80 H* Calcium AST ALT Ammonia Total Creatine Kinase CK-MB (CK-2) CK-MB (CK-2) Rel Index Troponin T NT-Pro-B Natriuret Pep Total Protein Albumin TSH Urine WBC (Auto) 06/11/18 06/12/18 06/12/18 21:52 04:41 04:41 WBC 30.1 H RDW Seg Neuts % (Manual) 95.0 H Lymphocytes % (Manual) 2.0 L Seg Neutrophils # Man 28.6 H Lymphocytes # (Manual) 0.6 L Monocytes # (Manual) 0.9 H Eosinophils # (Manual) POC ABG pO2 Sodium 135 L Potassium Chloride Carbon Dioxide Glucose 119 H POC Glucose 127 H Lactic Acid Calcium AST ALT Ammonia Total Creatine Kinase 2243 H CK-MB (CK-2) 207.4 H CK-MB (CK-2) Rel Index 9.2 H Troponin T 2.320 H* D NT-Pro-B Natriuret Pep Total Protein Albumin TSH Urine WBC (Auto) 06/12/18 06/12/18 08:30 12:19 WBC RDW Seg Neuts % (Manual) Lymphocytes % (Manual) Seg Neutrophils # Man Lymphocytes # (Manual) Monocytes # (Manual) Eosinophils # (Manual) POC ABG pO2 Sodium Potassium Chloride Carbon Dioxide Glucose POC Glucose 122 H 129 H Lactic Acid Calcium AST ALT Ammonia Total Creatine Kinase CK-MB (CK-2) CK-MB (CK-2) Rel Index Troponin T NT-Pro-B Natriuret Pep Total Protein Albumin TSH Urine WBC (Auto)
[2018-06-12] MEDS: TYLENOL PO PRN ×2 (17:10→23:08)
--- NOTE | 2018-06-12 17:15 | Consultation ---
History of Present Illness - Reason for Consult Consult date: 06/12/18 Sepsis Requesting physician: JOSELITO CORTEZ - History of Present Illness This patient is a 57 year old man , without a significant past medical history who presented to the ED on 06/11/18 for evaluation of chest pain. While in the waiting room, he had a syncopal episode. He was brought back into the emergency room and had a cardiac arrest and CPR was initiated. patient was shocked x 3 for V. Fib and was taken emergently to the laboratory geneticist, where a stent was place in the LAD. On admission WBC 20.5, Creatinine 1.1, Lactic Acid 3.80, Temperature 98.4, HR 92 and BP 103/62,. Chest xray showed no consolidations. Blood and urine cultures were drawn and show no growth to date. Sputum cultures are pending. Patient states he does not have a significant medical history. He started having chest pain the morning o f 06/11/18 and it became progressively worse throughout the day. He denies tobacco, drug or alcohol abuse. Review of Systems: General: no fever, chills, nightsweats, unintentional weight change, or change in appetite Cutaneous: no rash, pruritus Head: no headaches or injury Eyes: no changes in vision, eye pain, double vision Ears: no ear pain, ear discharge, ringing or hearing loss Nose: no nose bleeding, stuffiness Mouth & throat: no bleeding gums, no horseness, no dental problems, or swollen glands Neck: no pain, node enlargement/lumps, tyroid enlargement or tenderness Respiratory: + cough, wheezing, sputum, hemoptysis, pleuritic chest pain Cardiovascular: no chest pain, leg edema, cyanosis, SHIRLEY, orthopnea Musculoskeletal: history of back spasms, no decreased joint motion, bone or joint pain Gastrointestinal: no nausea, vomiting, diarrhea, constipation, melena, bright red blood in stools, fecal incontinence, jaundice Genitourinary/Reproductive: no frequent urination, no dysuria, hematuria, incontinence Neurogical: no seizures, no headaches, no weakness, no paresthesias, no loss of speech or vision; Psychiatric: stable mood; no excessive anxiety, sadness or moodiness Past History Past Medical History: No medical history Past Surgical History: No surgical history Social history: no significant social history Family history: no significant family history Medications and Allergies Allergies Allergy/AdvReac Type Severity Reaction Status Date / Time bupropion [From Wellbutrin] Allergy Unknown Verified 06/11/18 01:35 Penicillins Allergy Hives Verified 06/11/18 01:35 Gxleasr-Epu-Rae Reductase Allergy Unknown Verified 06/11/18 01:35 Inhibitor Home Medications Medication Instructions Recorded Confirmed Last Taken Type Xiidra OU BID 06/12/18 Unknown History Active Meds: Active Medications Amiodarone HCl (Cordarone) 200 mg PO BID [facility] Last Admin: 06/12/18 12:00 Dose: 200 mg Documented by: Aspirin (Aspirin) 325 mg PO QDAY [facility] Last Admin: 06/12/18 10:19 Dose: 325 mg Documented by: Atorvastatin Calcium (Lipitor) 40 mg PO QHS [facility] Last Admin: 06/11/18 21:09 Dose: Not Given Documented by: Clopidogrel Bisulfate (Plavix) 75 mg PO QDAY [facility] Last Admin: 06/12/18 10:19 Dose: 75 mg Documented by: Dextrose (D50w (25gm) Syringe) 50 ml IV PRN PRN PRN Reason: Hypoglycemia Diphenhydramine HCl (Benadryl) 25 mg IV Q6H PRN PRN Reason: Itching Enoxaparin Sodium (Lovenox) 40 mg SUB-Q QDAY [facility] Last Admin: 06/12/18 10:19 Dose: 40 mg Documented by: Hydrophilic Ointment (Vaseline Lip Therapy) 1 applic TP Q2HR PRN PRN Reason: Dry Lips Insulin Human Lispro (Humalog) 0 unit SUB-Q [facility]; Protocol Last Admin: 06/12/18 11:30 Dose: Not Given Documented by: Isosorbide Mononitrate (Imdur) 30 mg PO QDAY [facility] Last Admin: 06/12/18 12:00 Dose: 30 mg Documented by: Lisinopril (Zestril) 2.5 mg PO QDAY [facility] Last Admin: 06/12/18 10:19 Dose: Not Given Documented by: Metoprolol Tartrate (Lopressor) 100 mg PO BID [facility] Last Admin: 06/12/18 12:00 Dose: 100 mg Documented by: Morphine Sulfate (Morphine) 2 mg IV Q4H PRN PRN Reason: Pain, Moderate (4-6) Last Admin: 06/12/18 10:20 Dose: 2 mg Documented by: Multi-Ingred Cream/Lotion/Oil/Oint (Artificial Tears Ophth Oint) 1 applic OU Q4HR PRN PRN Reason: Dry Eye(s) Ondansetron HCl (Zofran) 4 mg IV Q8H PRN PRN Reason: Nausea And Vomiting Last Admin: 06/11/18 13:15 Dose: 4 mg Documented by: Physical Examination - Physical Exam Narrative exam: Constitutional: Alert, cooperative. mild distress, back pain/spasms reported Head, Ears, Nose: Normocephalic, atraumatic. External ears, nose normal Eyes: Conjunctivae/corneas clear. No icterus. No ptosis. Neck: Supple, no meningeal signs Oral: dentition good, no thrush Cardiovascular: S1, S2 normal. Respiratory: Good air entry, clear to auscultation bilaterally GI: Soft, non-tender; bowel sounds normal. No peritoneal signs Musculoskeletal: Back pain and muscle spasms Skin: No rash or abscess. Hem/Lymphatic: No palpable cervical or supraclavicular nodes. No lymphangitis Psych: Mood ok. Affect normal Neurological: Awake, alert, oriented. - Constitutional Vitals: Vital Signs Temp Pulse Resp BP Pulse Ox 99.2 F 90 20 121/78 90 06/12/18 12:00 06/12/18 15:30 06/12/18 15:30 06/12/18 15:30 06/12/18 15:15 Temperature -Last 24 Hours Temperature 99.2 F Temperature 98.8 F Temperature 98.8 F Temperature 98.5 F Temperature 98.2 F Results - Labs CBC & Chem 7: 06/12/18 04:41 06/12/18 04:41 Labs: Abnormal lab results 06/11/18 06/11/18 06/12/18 Range/Units 17:34 21:52 04:41 WBC 30.1 H (4.5-11.0) K/mm3 Seg Neuts % (Manual) 95.0 H (40.0-70.0) % Lymphocytes % (Manual) 2.0 L (13.4-35.0) % Seg Neutrophils # Man 28.6 H (1.8-7.7) K/mm3 Lymphocytes # (Manual) 0.6 L (1.2-5.4) K/mm3 Monocytes # (Manual) 0.9 H (0.0-0.8) K/mm3 Sodium (137-145) mmol/L Glucose (75-100) mg/dL POC Glucose 127 H (70-105) Lactic Acid 3.80 H* (0.7-2.0) mmol/L Total Creatine Kinase (55-170) units/L CK-MB (CK-2) (0.0-4.0) ng/mL CK-MB (CK-2) Rel Index (0-4) Troponin T (0.00-0.029) ng/mL 06/12/18 06/12/18 06/12/18 Range/Units 04:41 08:30 12:19 WBC (4.5-11.0) K/mm3 Seg Neuts % (Manual) (40.0-70.0) % Lymphocytes % (Manual) (13.4-35.0) % Seg Neutrophils # Man (1.8-7.7) K/mm3 Lymphocytes # (Manual) (1.2-5.4) K/mm3 Monocytes # (Manual) (0.0-0.8) K/mm3 Sodium 135 L (137-145) mmol/L Glucose 119 H (75-100) mg/dL POC Glucose 122 H 129 H (70-105) Lactic Acid (0.7-2.0) mmol/L Total Creatine Kinase 2243 H (55-170) units/L CK-MB (CK-2) 207.4 H (0.0-4.0) ng/mL CK-MB (CK-2) Rel Index 9.2 H (0-4) Troponin T 2.320 H* D (0.00-0.029) ng/mL Assessment and Plan Imagin06/11/18 Chest Xray: no consolidations Cultures: 06/11/2018 Blood: no growth to date 06/11/2018 Urine: no growth to date 06/11/2018 Tracheal Aspirate: Pending A/P: 57-year-old male with no significant medical history, had a syncopal episode in the waiting room, was brought back to the ER, s/p cardiac arrest requiring CPR, shocked x 3 for Ventricular Fibrillation and taken to the Lead Pourer where a stent was placed in the LAD, admitted with: 1. SIR's vs sepsis: No significant infection present. Luekocytosis likely reactive to cardiac arrest, patient remains afebrile, Chest xray shows no consolidation. Blood and Urine culture show no growth thus far. Tracheal aspirate is pending. 2. Status post cardiac arrest: Stent placed in LAD 3. Acute Respiratory failure: Related to above 4. Penicillin Allergy: Plan: -start Aztreonam 1 gm IV q 8 Start Flagyl 500mg, IV q 8 -f/u blood cultures -f/u urine culture -f/u tracheal aspirate culture D/w Dr. Klarissa Kasper, [facility] M: [phone] O:[phone]
[2018-06-12] MEDS: FLAGYL 500 MG/100 ML 500 MG/100 ML BAG IV SCH (21:38)
[2018-06-12] MEDS: AZACTAM/NS 1 GM/50 ML 1 GM/50 ML VIAL IV SCH (23:08)
[2018-06-13] MEDS: FLAGYL 500 MG/100 ML 500 MG/100 ML BAG IV SCH ×2 (06:05→16:01)
[2018-06-13] MEDS: AZACTAM/NS 1 GM/50 ML 1 GM/50 ML VIAL IV SCH ×2 (06:10→20:11)
[2018-06-13] MEDS: ZOFRAN IV PRN (06:45)
[2018-06-13] MEDS: MORPHINE IV PRN (09:01)
[2018-06-13] MEDS: HumaLOG SUB-Q SCH ×4 (09:12→22:35)
[2018-06-13] MEDS: ASPIRIN PO SCH (09:28)
[2018-06-13] MEDS: LOPRESSOR PO SCH ×2 (09:28→22:33)
[2018-06-13] MEDS: PLAVIX PO SCH (09:28)
[2018-06-13] MEDS: LOVENOX SUB-Q SCH (09:28)
[2018-06-13] MEDS: IMDUR PO SCH (09:28)
--- NOTE | 2018-06-13 09:58 | Progress Note ---
Assessment and Plan Imagin06/11/18 Chest Xray: no consolidations Cultures: 06/11/2018 Blood: no growth to date 06/11/2018 Urine: no growth to date 06/11/2018 Tracheal Aspirate: Staph aureus A/P: 57-year-old male with no significant medical history, had a syncopal episode in the waiting room, was brought back to the ER, s/p cardiac arrest requiring CPR, shocked x 3 for Ventricular Fibrillation and taken to the Civil Clerk where a stent was placed in the LAD, admitted with: 1. SIR's vs sepsis: No significant infection present. Luekocytosis likely reactive to cardiac arrest, patient remains afebrile, Chest xray shows no consolidation. Blood and Urine culture show no growth thus far. Tracheal aspirate is pending. 2. Status post cardiac arrest: Stent placed in LAD 3. Acute Respiratory failure: Tracheal aspirate cultures growing Staph aureus. Will start Vancomycin empirically 4. Penicillin Allergy: Plan: -discontinue Aztreonam 1 gm IV q 8 -discontinue Flagyl 500mg, IV q 8 -f/u blood cultures -f/u urine culture -f/u tracheal aspirate culture -Start Vancomycin Dr. Cyr will be taking call from home on Saturday, , and making rounds in the hospital on Saturday. [facility] M: [phone] O:[phone] Subjective Date of service: 06/13/18 Interval history: Patient seen and examined. Mild distress noted, stated he was unable to sleep well last night. Denied SOB, fever or rashes. Objective - Exam Narrative Exam: Constitutional: Alert, cooperative. mild distress Head, Ears, Nose: Normocephalic, atraumatic. External ears, nose normal Eyes: Conjunctivae/corneas clear. No icterus. No ptosis. Neck: Supple, no meningeal signs Oral: dentition good, no thrush Cardiovascular: S1, S2 normal. Respiratory: Good air entry, clear to auscultation bilaterally GI: Soft, non-tender; bowel sounds normal. No peritoneal signs Musculoskeletal: Minor back pain and muscle spasms Skin: No rash or abscess. Hem/Lymphatic: No palpable cervical or supraclavicular nodes. No lymphangitis Psych: Mood depressed. Affect normal Neurological: Awake, alert, oriented. - Constitutional Vitals: Vital Signs Temp Pulse Resp BP Pulse Ox 98.2 F 107 H 20 140/95 91 06/13/18 07:43 06/13/18 07:43 06/13/18 07:43 06/13/18 07:43 06/13/18 07:43 Temperature -Last 24 Hours Temperature 98.2 F Temperature 98.1 F Temperature 97.6 F Temperature 98.0 F Temperature 99.2 F Temperature 98.4 F Temperature 99.2 F - Labs CBC & Chem 7: 06/12/18 04:41 06/12/18 04:41 Labs: Abnormal lab results 06/12/18 06/12/18 Range/Units 12:19 16:46 POC Glucose 129 H 119 H (70-105)
[2018-06-13] MEDS: CORDARONE PO SCH ×2 (10:00→22:33)
[2018-06-13] MEDS ORDERED: VANCOMYCIN PHARMACY TO DOSE IV SCH (10:00)
--- NOTE | 2018-06-13 10:02 | Progress Note ---
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 We will treat with a course of non-steroidal anti-inflammatory agents. Original Note: Assessment and Plan Cardiac arrest manifested by ventricular fibrillation and ventricular tachycardia. on amiodarone Acute anterolateral wall ST elevation myocardial infarction s/p PCI of the left anterior descending artery in its mid segment using drug- eluting stents EF 20-30% by echocardiogram Leukocytosis Recommendations: Continue medical therapy for VT/VF, ischemic cardiomyopathy and coronary artery disease. Lifevest placement before discharge. Champion of intravenous Toradol for anti-inflammatory chest pain. Subjective Date of service: 06/13/18 Interval history: Patient complains of chest pain, worse with movement. Objective Vital Signs Temp Pulse Resp BP Pulse Ox 06/13/18 07:43 98.2 F 107 H 20 140/95 91 06/13/18 03:41 98.1 F 98 H 17 133/88 84 06/13/18 01:53 94 06/12/18 23:07 97.6 F 17 124/82 06/12/18 22:00 87 06/12/18 21:40 98.0 F 17 136/89 06/12/18 21:39 95 H 136/89 06/12/18 18:08 99.2 F 85 20 115/78 90 06/12/18 17:40 86 21 106/62 90 06/12/18 17:30 91 H 24 106/62 91 06/12/18 17:20 90 23 128/88 91 06/12/18 17:10 94 H 18 116/77 89 06/12/18 17:01 94 H 20 116/77 06/12/18 16:45 92 H 20 123/78 06/12/18 16:30 91 H 25 H 126/87 06/12/18 16:15 87 23 128/81 90 06/12/18 16:00 98.4 F 87 24 126/81 06/12/18 15:45 90 27 H 131/84 91 06/12/18 15:30 90 20 121/78 06/12/18 15:15 89 28 H 132/87 90 06/12/18 15:00 87 22 123/87 06/12/18 14:45 86 20 121/84 06/12/18 14:30 89 28 H 123/84 91 06/12/18 14:15 88 21 119/80 90 06/12/18 14:00 89 29 H 124/84 06/12/18 13:46 85 26 H 118/82 91 06/12/18 13:30 83 19 118/82 06/12/18 13:15 86 24 126/83 06/12/18 13:00 85 24 126/80 06/12/18 12:45 87 19 114/80 94 06/12/18 12:30 87 14 115/77 96 06/12/18 12:15 83 23 120/78 92 06/12/18 12:00 99.2 F 85 24 112/74 06/12/18 11:45 83 24 111/71 92 06/12/18 11:30 89 21 106/73 93 06/12/18 11:15 85 20 118/73 94 06/12/18 11:00 86 21 110/71 95 06/12/18 10:45 88 23 101/64 93 06/12/18 10:30 87 22 117/78 06/12/18 10:19 92 H 97/58 06/12/18 10:15 92 H 18 97/58 94 06/12/18 10:00 87 21 99/55 96 - Physical Examination General: No Apparent Distress HEENT: Positive: PERRL Neck: Positive: trachea midline Cardiac: Positive: Reg Rate and Rhythm Lungs: Positive: Decreased Breath Sounds Neuro: Positive: Grossly Intact Abdomen: Positive: Soft Incision: Cardiac Cath Site (right groin; no hematoma.) Musculoskeletal: Normal Range of Motion Extremities: Absent: edema
[2018-06-13] MEDS: ZESTRIL PO SCH (11:51)
[2018-06-13] MEDS ORDERED: VANCOMYCIN 1,500 MG in NACL 0.9% 500 ML 500 ML IV ONE (12:00)
[2018-06-13] MEDS: TORADOL IV SCH ×2 (14:12→22:36)
--- NOTE | 2018-06-13 15:02 | Progress Note ---
Assessment and Plan 57 y/o male with Vfib arrest secondary to CAD and complete LAD occlusion 1. Cardiac disease-cards following, treating positional chest pain 2. Pulm-wean FiO2 for sats >88%. Suggest repeat CXR and consider another dose of lasix therapy IV. I gave post intubation which he tolerated fine. patient has a depressed EF and is subjective to volume overload. 3. Will sign off. Call if questions. Subjective Date of service: 06/13/18 Interval history: Successful transfer out of unit. Remains on nasal cannula with a sat of 94 on 4 liters. Continues to have chest pain, per cards it is positional. Objective Vital Signs - 12hr 06/13/18 06/13/18 03:41 07:43 Temperature 98.1 F 98.2 F Pulse Rate 98 H 107 H Respiratory 17 20 Rate Blood Pressure 133/88 140/95 O2 Sat by Pulse 84 91 Oximetry Constitutional: no acute distress, alert Eyes: non-icteric Ascultation: Bilateral: diminished breath sounds Percussion: Bilateral: not dull Cardiovascular: other (sinus tach) CBC and BMP: 06/12/18 04:41 06/12/18 04:41 ABG, PT/INR, D-dimer: ABG POC ABG pH 7.419 (7.35-7.45) 06/11/18 04:25 POC ABG pCO2 39.1 (35-45) 06/11/18 04:25 POC ABG pO2 426 (80-105) H 06/11/18 04:25 POC ABG HCO3 25.3 06/11/18 04:25 POC ABG Total CO2 26 06/11/18 04:25 POC ABG O2 Sat 100 06/11/18 04:25 PT/INR, D-dimer PT 13.9 Sec. (12.2-14.9) 06/11/18 01:31 INR 1.03 (0.87-1.13) 06/11/18 01:31 Abnormal lab findings: Abnormal Labs 06/11/18 06/11/18 06/11/18 01:31 01:31 01:31 WBC 20.5 H RDW 13.1 L Seg Neuts % (Manual) Lymphocytes % (Manual) Seg Neutrophils # Man 12.3 H Lymphocytes # (Manual) 6.9 H Monocytes # (Manual) Eosinophils # (Manual) 0.5 H POC ABG pO2 Sodium Potassium 2.6 L* Chloride 96.9 L Carbon Dioxide Glucose 174 H POC Glucose Lactic Acid 9.10 H* Calcium 10.8 H AST 56 H ALT 58 H Ammonia Total Creatine Kinase CK-MB (CK-2) CK-MB (CK-2) Rel Index Troponin T 0.094 H NT-Pro-B Natriuret Pep 1466 H Total Protein 5.9 L Albumin 3.8 L TSH Urine WBC (Auto) 06/11/18 06/11/18 06/11/18 01:31 01:31 01:31 WBC RDW Seg Neuts % (Manual) Lymphocytes % (Manual) Seg Neutrophils # Man Lymphocytes # (Manual) Monocytes # (Manual) Eosinophils # (Manual) POC ABG pO2 Sodium Potassium Chloride Carbon Dioxide Glucose POC Glucose Lactic Acid Calcium AST ALT Ammonia 62.0 H Total Creatine Kinase CK-MB (CK-2) CK-MB (CK-2) Rel Index Troponin T NT-Pro-B Natriuret Pep Total Protein Albumin TSH 7.520 H Urine WBC (Auto) 11.0 H 06/11/18 06/11/18 06/11/18 04:25 04:58 04:58 WBC RDW Seg Neuts % (Manual) Lymphocytes % (Manual) Seg Neutrophils # Man Lymphocytes # (Manual) Monocytes # (Manual) Eosinophils # (Manual) POC ABG pO2 426 H Sodium Potassium Chloride Carbon Dioxide Glucose POC Glucose Lactic Acid 3.00 H* Calcium AST ALT Ammonia Total Creatine Kinase 1008 H CK-MB (CK-2) 89.4 H CK-MB (CK-2) Rel Index Troponin T 0.829 H* D NT-Pro-B Natriuret Pep Total Protein Albumin TSH Urine WBC (Auto) 06/11/18 06/11/18 06/11/18 04:58 04:58 11:26 WBC 24.7 H RDW 12.7 L Seg Neuts % (Manual) 86.5 H Lymphocytes % (Manual) 7.5 L Seg Neutrophils # Man 21.4 H Lymphocytes # (Manual) Monocytes # (Manual) 1.1 H Eosinophils # (Manual) POC ABG pO2 Sodium Potassium Chloride Carbon Dioxide Glucose 195 H POC Glucose Lactic Acid Calcium AST ALT Ammonia Total Creatine Kinase CK-MB (CK-2) CK-MB (CK-2) Rel Index Troponin T 1.320 H* D NT-Pro-B Natriuret Pep Total Protein Albumin TSH Urine WBC (Auto) 06/11/18 06/11/18 06/11/18 11:26 11:58 15:46 WBC RDW Seg Neuts % (Manual) Lymphocytes % (Manual) Seg Neutrophils # Man Lymphocytes # (Manual) Monocytes # (Manual) Eosinophils # (Manual) POC ABG pO2 Sodium Potassium Chloride Carbon Dioxide 19 L Glucose 160 H POC Glucose 187 H Lactic Acid Calcium AST ALT Ammonia Total Creatine Kinase 2150 H CK-MB (CK-2) 243.4 H CK-MB (CK-2) Rel Index 11.3 H Troponin T NT-Pro-B Natriuret Pep Total Protein Albumin TSH Urine WBC (Auto) 06/11/18 06/11/18 06/11/18 15:46 16:20 17:34 WBC RDW Seg Neuts % (Manual) Lymphocytes % (Manual) Seg Neutrophils # Man Lymphocytes # (Manual) Monocytes # (Manual) Eosinophils # (Manual) POC ABG pO2 Sodium Potassium Chloride Carbon Dioxide Glucose POC Glucose 152 H Lactic Acid 4.40 H* 3.80 H* Calcium AST ALT Ammonia Total Creatine Kinase CK-MB (CK-2) CK-MB (CK-2) Rel Index Troponin T NT-Pro-B Natriuret Pep Total Protein Albumin TSH Urine WBC (Auto) 06/11/18 06/12/18 06/12/18 21:52 04:41 04:41 WBC 30.1 H RDW Seg Neuts % (Manual) 95.0 H Lymphocytes % (Manual) 2.0 L Seg Neutrophils # Man 28.6 H Lymphocytes # (Manual) 0.6 L Monocytes # (Manual) 0.9 H Eosinophils # (Manual) POC ABG pO2 Sodium 135 L Potassium Chloride Carbon Dioxide Glucose 119 H POC Glucose 127 H Lactic Acid Calcium AST ALT Ammonia Total Creatine Kinase 2243 H CK-MB (CK-2) 207.4 H CK-MB (CK-2) Rel Index 9.2 H Troponin T 2.320 H* D NT-Pro-B Natriuret Pep Total Protein Albumin TSH Urine WBC (Auto) 06/12/18 06/12/18 06/12/18 08:30 12:19 16:46 WBC RDW Seg Neuts % (Manual) Lymphocytes % (Manual) Seg Neutrophils # Man Lymphocytes # (Manual) Monocytes # (Manual) Eosinophils # (Manual) POC ABG pO2 Sodium Potassium Chloride Carbon Dioxide Glucose POC Glucose 122 H 129 H 119 H Lactic Acid Calcium AST ALT Ammonia Total Creatine Kinase CK-MB (CK-2) CK-MB (CK-2) Rel Index Troponin T NT-Pro-B Natriuret Pep Total Protein Albumin TSH Urine WBC (Auto) 06/13/18 11:43 WBC RDW Seg Neuts % (Manual) Lymphocytes % (Manual) Seg Neutrophils # Man Lymphocytes # (Manual) Monocytes # (Manual) Eosinophils # (Manual) POC ABG pO2 Sodium Potassium Chloride Carbon Dioxide Glucose POC Glucose 125 H Lactic Acid Calcium AST ALT Ammonia Total Creatine Kinase CK-MB (CK-2) CK-MB (CK-2) Rel Index Troponin T NT-Pro-B Natriuret Pep Total Protein Albumin TSH Urine WBC (Auto)
--- NOTE | 2018-06-13 18:25 | Progress Note ---
Assessment and Plan Assessment and plan: Patient is 57 yo man without chronic medical problems who presented to [facility] ED with Chest pains. While he was in the waiting room, he had a syncopal episode. He was brought back into the emergency room where he had cardiac arrest and CPR was started. Patient was shocked 3 for V. fib, he was taken emergently to the cathode maker where a stent was placed in the LAD. Imagin06/11/18 Chest Xray: no consolidations Cultures: 06/11/2018 Blood: no growth to date 06/11/2018 Urine: no growth to date 06/11/2018 Tracheal Aspirate: Staph aureus STEMI with cardiac stent to LAD: Cardiology is following, still on IV ntg drip Acute respiratory failure, s/p Intubation and now extubated 06/11/17: wean o2 as appropriate Acute combined heart failure, poa: may benefit from lasix, will defer to Cardiology Cardiac arrest, with successful resuscitation Continous right sided CP, possible related to defibrillation/chest compression; continue pain management, d/w Dr. Miles suspect Caron and he will start NSAIDS SIRS with organ dysfunction vs Sepsis will stop abx and monitor, urine culture pending, consulted ID, WBC increasing Staph aureus in trach aspirate, pending identity and sensitivities Status post V. fib cardiac arrest with estimated EF 20-30%: LifeVest prior to di scharge Hypokalemia resolved: monitor bmp closely Cardiogenic syncope ECHO reviewed. Dr. Miles wants patient to have LifeVest prior to discharge. History Interval history: Patient was seen and examined. Follow-up on current diagnosis of chest pains, still with right sided chest pains mostly. Overnight uneventful. Patient denies any nausea/vomiting or severe headaches. Imaging, nursing note, chart, labs and old chart reviewed. Discussed with patient. He doesn't remember much. Hospitalist Physical - Physical exam Narrative exam: Gen: WDWN, NAD, Awake, Alert, Orientated x 2, he think he is at [place] again today HEENT: NCAT, EOMI, PERRL, OP Clear Neck: supple, no adenopathy, no thyromegaly, no JVD CVS/Heart: RRR, normal S1S2, pulses present bilaterally Chest/Lungs: CTA B, Symmetrical chest expansion, good air entry bilaterally GI/Abdomen: soft, NTND, good bowel sounds, no guarding or rebound /Bladder: no suprapubic tenderness, no CVA or paraspinal tenderness Extermity/Skin: no c/c/e, no obvious rash MSK: FROM x 4 Neuro: CN 2-12 grossly intact, no new focal deficits Psych: calm - Constitutional Vitals: Temp Pulse Resp BP Pulse Ox 98.0 F 106 H 20 142/91 96 06/13/18 15:22 06/13/18 15:22 06/13/18 15:22 06/13/18 15:22 06/13/18 16:28 General appearance: Present: no acute distress, well-nourished Results - Labs CBC & Chem 7: 06/12/18 04:41 06/12/18 04:41 Labs: Laboratory Last Values WBC 30.1 K/mm3 (4.5-11.0) H 06/12/18 04:41 RBC 4.41 M/mm3 (3.65-5.03) 06/12/18 04:41 Hgb 12.5 gm/dl (11.8-15.2) 06/12/18 04:41 Hct 37.3 % (35.5-45.6) 06/12/18 04:41 MCV 85 fl (84-94) 06/12/18 04:41 MCH 28 pg (28-32) 06/12/18 04:41 MCHC 34 % (32-34) 06/12/18 04:41 RDW 13.3 % (13.2-15.2) 06/12/18 04:41 Plt Count 248 K/mm3 (140-440) 06/12/18 04:41 Lymph # Wide Area Network Engineer 06/11/18 01:31 Add Manual Diff Complete 06/12/18 04:41 Total Counted 100 06/12/18 04:41 Seg Neutrophils % Wide Area Network Engineer 06/11/18 04:58 Seg Neuts % (Manual) 95.0 % (40.0-70.0) H 06/12/18 04:41 Band Neutrophils % 0 % 06/12/18 04:41 Lymphocytes % (Manual) 2.0 % (13.4-35.0) L 06/12/18 04:41 Reactive Lymphs % (Man) 0 % 06/12/18 04:41 Monocytes % (Manual) 3.0 % (0.0-7.3) 06/12/18 04:41 Eosinophils % (Manual) 0 % (0.0-4.3) 06/12/18 04:41 Basophils % (Manual) 0 % (0.0-1.8) 06/12/18 04:41 Metamyelocytes % 0 % 06/12/18 04:41 Myelocytes % 0 % 06/12/18 04:41 Promyelocytes % 0 % 06/12/18 04:41 Blast Cells % 0 % 06/12/18 04:41 Nucleated RBC % Not Reportable 06/12/18 04:41 Seg Neutrophils # Man 28.6 K/mm3 (1.8-7.7) H 06/12/18 04:41 Band Neutrophils # 0.0 K/mm3 06/12/18 04:41 Lymphocytes # (Manual) 0.6 K/mm3 (1.2-5.4) L 06/12/18 04:41 Abs React Lymphs (Man) 0.0 K/mm3 06/12/18 04:41 Monocytes # (Manual) 0.9 K/mm3 (0.0-0.8) H 06/12/18 04:41 Eosinophils # (Manual) 0.0 K/mm3 (0.0-0.4) 06/12/18 04:41 Basophils # (Manual) 0.0 K/mm3 (0.0-0.1) 06/12/18 04:41 Metamyelocytes # 0.0 K/mm3 06/12/18 04:41 Myelocytes # 0.0 K/mm3 06/12/18 04:41 Promyelocytes # 0.0 K/mm3 06/12/18 04:41 Blast Cells # 0.0 K/mm3 06/12/18 04:41 WBC Morphology Not Reportable 06/12/18 04:41 Hypersegmented Neuts Not Reportable 06/12/18 04:41 Hyposegmented Neuts Not Reportable 06/12/18 04:41 Hypogranular Neuts Not Reportable 06/12/18 04:41 Smudge Cells Not Reportable 06/12/18 04:41 Toxic Granulation Not Reportable 06/12/18 04:41 Toxic Vacuolation Not Reportable 06/12/18 04:41 Dohle Bodies Not Reportable 06/12/18 04:41 Pelger-Huet Anomaly Not Reportable 06/12/18 04:41 Zander Rods Not Reportable 06/12/18 04:41 Platelet Estimate Consistent w auto 06/12/18 04:41 Clumped Platelets Not Reportable 06/12/18 04:41 Plt Clumps, EDTA Not Reportable 06/12/18 04:41 Large Platelets Not Reportable 06/12/18 04:41 Giant Platelets Not Reportable 06/12/18 04:41 Platelet Satelliting Not Reportable 06/12/18 04:41 Plt Morphology Comment Not Reportable 06/12/18 04:41 RBC Morphology Not Reportable 06/12/18 04:41 Dimorphic RBCs Not Reportable 06/12/18 04:41 Polychromasia Not Reportable 06/12/18 04:41 Hypochromasia Not Reportable 06/12/18 04:41 Poikilocytosis Not Reportable 06/12/18 04:41 Anisocytosis 1+ 06/12/18 04:41 Microcytosis Not Reportable 06/12/18 04:41 Macrocytosis Not Reportable 06/12/18 04:41 Spherocytes Not Reportable 06/12/18 04:41 Pappenheimer Bodies Not Reportable 06/12/18 04:41 Sickle Cells Not Reportable 06/12/18 04:41 Target Cells Not Reportable 06/12/18 04:41 Tear Drop Cells Not Reportable 06/12/18 04:41 Ovalocytes Not Reportable 06/12/18 04:41 Helmet Cells Not Reportable 06/12/18 04:41 [place] Bodies Not Reportable 06/12/18 04:41 [place] Rings Not Reportable 06/12/18 04:41 [place] Cells Not Reportable 06/12/18 04:41 Bite Cells Not Reportable 06/12/18 04:41 Crenated Cell Not Reportable 06/12/18 04:41 Elliptocytes Not Reportable 06/12/18 04:41 Acanthocytes (Spur) Not Reportable 06/12/18 04:41 Rouleaux Not Reportable 06/12/18 04:41 Hemoglobin C Crystals Not Reportable 06/12/18 04:41 Schistocytes Not Reportable 06/12/18 04:41 Malaria parasites Not Reportable 06/12/18 04:41 Joel Bodies Not Reportable 06/12/18 04:41 Hem Pathologist Commnt No 06/12/18 04:41 PT 13.9 Sec. (12.2-14.9) 06/11/18 01:31 INR 1.03 (0.87-1.13) 06/11/18 01:31 APTT 29.2 Sec. (24.2-36.6) 06/11/18 01:31 POC ABG pH 7.419 (7.35-7.45) 06/11/18 04:25 POC ABG pCO2 39.1 (35-45) 06/11/18 04:25 POC ABG pO2 426 (80-105) H 06/11/18 04:25 POC ABG HCO3 25.3 06/11/18 04:25 POC ABG Total CO2 26 06/11/18 04:25 POC ABG O2 Sat 100 06/11/18 04:25 POC ABG Base Excess 1 06/11/18 04:25 FiO2 100 % 06/11/18 04:25 Sodium 135 mmol/L (137-145) L 06/12/18 04:41 Potassium 4.2 mmol/L (3.6-5.0) 06/12/18 04:41 Chloride 98.2 mmol/L (98-107) 06/12/18 04:41 Carbon Dioxide 22 mmol/L (22-30) 06/12/18 04:41 Anion Gap 19 mmol/L 06/12/18 04:41 BUN 18 mg/dL (9-20) 06/12/18 04:41 Creatinine 1.1 mg/dL (0.8-1.5) 06/12/18 04:41 Estimated GFR > 60 ml/min 06/12/18 04:41 BUN/Creatinine Ratio 16 % 06/12/18 04:41 Glucose 119 mg/dL (75-100) H 06/12/18 04:41 POC Glucose 125 (70-105) H 06/13/18 11:43 Hemoglobin A1c 5.9 % (4-6) 06/12/18 04:41 Lactic Acid 3.80 mmol/L (0.7-2.0) H* 06/11/18 17:34 Calcium 8.8 mg/dL (8.4-10.2) 06/12/18 04:41 Magnesium 2.10 mg/dL (1.7-2.3) 06/12/18 04:41 Total Bilirubin 0.20 mg/dL (0.1-1.2) 06/11/18 01:31 AST 56 units/L (5-40) H 06/11/18 01:31 ALT 58 units/L (7-56) H 06/11/18 01:31 Alkaline Phosphatase 79 units/L (35-129) 06/11/18 01:31 Ammonia 62.0 umol/L (25-60) H 06/11/18 01:31 Total Creatine Kinase 2243 units/L (55-170) H 06/12/18 04:41 CK-MB (CK-2) 207.4 ng/mL (0.0-4.0) H 06/12/18 04:41 CK-MB (CK-2) Rel Index 9.2 (0-4) H 06/12/18 04:41 Troponin T 2.320 ng/mL (0.00-0.029) H* D 06/12/18 04:41 NT-Pro-B Natriuret Pep 1466 pg/mL (0-900) H 06/11/18 01:31 Total Protein 5.9 g/dL (6.3-8.2) L 06/11/18 01:31 Albumin 3.8 g/dL (3.9-5) L 06/11/18 01:31 Albumin/Globulin Ratio 1.8 % 06/11/18 01:31 Triglycerides 41 mg/dL (2-149) 06/11/18 04:58 Cholesterol 140 mg/dL (50-199) 06/11/18 04:58 LDL Cholesterol Direct 103 mg/dL (50-130) 06/11/18 04:58 HDL Cholesterol 41 mg/dL (40-59) 06/11/18 04:58 Cholesterol/HDL Ratio 3.41 % 06/11/18 04:58 TSH 7.520 mlU/mL (0.270-4.200) H 06/11/18 01:31 Thyroxine (T4) 7.1 ug/dL (4.0-12.0) 06/11/18 04:58 Urine Color Yellow (Yellow) 06/11/18 01:31 Urine Turbidity Turbid (Clear) 06/11/18 01:31 Urine pH 6.0 (5.0-7.0) 06/11/18 01:31 Ur Specific [place] 1.027 (1.003-1.030) 06/11/18 01:31 Urine Protein 100 mg/dl mg/dL (Negative) 06/11/18 01:31 Urine Glucose (UA) Negative mg/dL (Negative) 06/11/18 01:31 Urine Ketones Trace mg/dL (Negative) 06/11/18 01:31 Urine Blood Negative (Negative) 06/11/18 01:31 Urine Nitrite Negative (Negative) 06/11/18 01:31 Urine Bilirubin Negative (Negative) 06/11/18 01:31 Urine Urobilinogen < 2.0 mg/dL (<2.0) 06/11/18 01:31 Ur Leukocyte Esterase Trace (Negative) 06/11/18 01:31 Urine WBC (Auto) 11.0 /HPF (0.0-6.0) H 06/11/18 01:31 Urine RBC (Auto) 36.0 /HPF (0.0-6.0) 06/11/18 01:31 Urine Bacteria (Auto) 4+ /HPF (Negative) 06/11/18 01:31 Urine Mucus 3+ /HPF 06/11/18 01:31 Urine Yeast (Budding) 3+ /HPF 06/11/18 01:31 Urine Sperm 3+ /HPF ([employer] MEMBER) 06/11/18 01:31 Urine Opiates Screen Presumptive positive 06/11/18 01:31 Urine Methadone Screen Presumptive negative 06/11/18 01:31 Ur Barbiturates Screen Presumptive negative 06/11/18 01:31 Ur Phencyclidine Scrn Presumptive negative 06/11/18 01:31 Ur Amphetamines Screen Presumptive negative 06/11/18 01:31 U Benzodiazepines Scrn Presumptive negative 06/11/18 01:31 Urine Cocaine Screen Presumptive negative 06/11/18 01:31 U Marijuana (THC) Screen Presumptive negative 06/11/18 01:31 Drugs of Abuse Note Disclamer 06/11/18 01:31 Plasma/Serum Alcohol < 0.01 % (0-0.07) 06/11/18 01:31 Blood Type O NEGATIVE 06/11/18 01:31 Antibody Screen Negative 06/11/18 01:31 Nutrition/Malnutrition Assess - Dietary Evaluation Nutrition/Malnutrition Findings: Nutrition Notes Start: 06/11/18 13:34 Freq: Status: Active Protocol: Document 06/13/18 14:31 RM (Rec: 06/13/18 14:46 RM [id number]) Nutrition Notes Initial or Follow up Reassessment Current Diagnoses Sepsis Other Pertinent Diagnosis s/p cardiac arrest, s/p vfib Current Diet Cl liq Labs/Tests Reviewed Medications Reviewed Height 5 ft 8 in Weight 79.379 kg [place] Body Weight (lbs) 154.0 BMI 26.6 Subjective/Other Information Pt stated that he has been drinking water and sprite. Also stated that he is nauseous but has not vomited. Burn Absent Trauma Absent #1 Nutrition Diagnoses Predicted suboptimal energy intake Diagnosis Progress(for reassessment Continues documentation) Is patient on ventilator? No Is Patient Ambulatory and/or Out of Bed No REE-([place] Jeor-confined to bed) [phone] Calculation [facility]ations [facility] Additional Notes Protein Needs: 64-79g (0.8-1g/ kg) Fluid Needs: 1ml/kcal Nutrition Intervention Change Diet Order: Advance diet when medically able Add Supplement/Snack (indicate name/kcal Ensure Clear Mixed [place] 1 /protein ) daily Goal #1 PO tolerance Goal #2 Diet advancement Anticipated Discharge Needs: Unable to determine at this time Follow-Up By: 06/16/18 Additional Comments Follow for PO intakes, ONS intakes
[2018-06-13] MEDS: AMBIEN PO PRN (22:57)
[2018-06-13] MEDS ORDERED: VANCOMYCIN 1,250 MG in NACL 0.9% 250ML 250 ML IV SCH (23:59)
[2018-06-14] MEDS ORDERED: LASIX IV NR (00:14)
[2018-06-14 04:20] LABS: Hematocrit 37.3 % (35.5-45.6); Hemoglobin 12.8 gm/dl (11.8-15.2); Mean Corpuscular HGB Conc 34 % (32-34); Mean Corpuscular Volume 84 fl (84-94); Platelet Count 243 K/mm3 (140-440); Red Blood Count 4.45 M/mm3 (3.65-5.03); Red Cell Distribution Width 12.9 % (13.2-15.2)
[2018-06-14] MEDS: VANCOMYCIN 1,250 MG in NACL 0.9% 250ML 250 ML IV SCH ×2 (04:50→16:48)
[2018-06-14] MEDS: TORADOL IV SCH ×2 (06:25→13:43)
[2018-06-14 07:34] LABS: BUN/Creatinine Ratio 25; Blood Urea Nitrogen 27 mg/dL (9-20); Calcium 8.1 mg/dL (8.4-10.2); Hemolysis Index 8
[2018-06-14] MEDS: HumaLOG SUB-Q SCH ×4 (08:27→23:52)
--- NOTE | 2018-06-14 10:33 | Progress Note ---
Assessment and Plan 1. Status post cardiac arrest 2. Status post ST elevation NC with PCI and stent to the LAD 3. Ischemic cardiomyopathy LVEF 20% 4. UTI Plan. Patient is currently stable and will need a life-vest prior to discharge Subjective Date of service: 06/14/18 Principal diagnosis: CAD Interval history: Nocardiac symptoms. Objective Vital Signs Temp Pulse Resp BP BP Pulse Ox 06/14/18 07:40 98.8 F 103 H 16 140/95 98 06/14/18 05:35 94 06/14/18 03:56 97.7 F 97 H 22 133/92 96 06/13/18 23:42 97.9 F 96 H 24 132/93 85 06/13/18 22:46 100 06/13/18 22:44 100 06/13/18 22:33 116 H 144/88 06/13/18 20:00 115 H 06/13/18 19:56 97.7 F 118 H 24 144/88 84 06/13/18 16:28 96 06/13/18 15:22 98.0 F 106 H 20 142/91 06/13/18 15:20 106 H 142/91 83 L - Physical Examination General: No Apparent Distress HEENT: Positive: PERRL Neck: Positive: trachea midline Cardiac: Positive: Regular Rate, S1/S2, S3, PMI, Laterally Displaced Lungs: Positive: clear to auscultation Neuro: Positive: Grossly Intact Abdomen: Positive: Soft Skin: Positive: Clear Incision: Cardiac Cath Site (right groin; no hematoma.) Musculoskeletal: Normal Range of Motion Extremities: Absent: edema - Labs and Meds CBC 06/14/18 Range/Units 03:08 WBC 25.6 H (4.5-11.0) K/mm3 RBC 4.45 (3.65-5.03) M/mm3 Hgb 12.8 (11.8-15.2) gm/dl Hct 37.3 (35.5-45.6) % Plt Count 243 (140-440) K/mm3 Comprehensive Metabolic Panel 06/14/18 Range/Units 03:08 Sodium 132 L (137-145) mmol/L Potassium 3.6 (3.6-5.0) mmol/L Chloride 94.2 L (98-107) mmol/L Carbon Dioxide 20 L (22-30) mmol/L BUN 27 H (9-20) mg/dL Creatinine 1.1 (0.8-1.5) mg/dL Glucose 115 H (75-100) mg/dL Calcium 8.1 L (8.4-10.2) mg/dL - Imaging and Cardiology EKG: image reviewed
[2018-06-14] MEDS ORDERED: LASIX IV ONE ×3 (11:00→18:00)
--- NOTE | 2018-06-14 12:59 | XRay Report ---
FINAL REPORT EXAM: XR CHEST 1V AP HISTORY: sob TECHNIQUE: Frontal portable examination of the chest PRIORS: 06/12/2018 FINDINGS: There is new vascular prominence bilaterally which may reflect vascular congestion. Cardiac size with in normal limits. Nonspecific new patchy and interstitial opacity is noted in the right midlung and left mid to lower l nirav. No pneumothorax or pleural effusion. No acute displaced fracture. Metal monitoring devices partly obs cure anatomy and limits the examination. IMPRESSION: New vascular prominence may reflect congestion. New bilateral patchy and interstitial opacity may be atelectasis, edema, and/or pneumonia
[2018-06-14] MEDS: ASPIRIN PO SCH (13:36)
[2018-06-14] MEDS: PLAVIX PO SCH (13:36)
[2018-06-14] MEDS: ZESTRIL PO SCH (13:37)
[2018-06-14] MEDS: LOPRESSOR PO SCH ×2 (13:38→21:06)
[2018-06-14] MEDS: CORDARONE PO SCH ×2 (13:38→21:06)
[2018-06-14] MEDS: LOVENOX SUB-Q SCH (13:39)
[2018-06-14] MEDS: IMDUR PO SCH (13:40)
--- NOTE | 2018-06-14 17:03 | Progress Note ---
Assessment and Plan Assessment and plan: Patient is 57 yo man without chronic medical problems who presented to [facility] ED with Chest pains. While he was in the waiting room, he had a syncopal episode. He was brought back into the emergency room where he had cardiac arrest and CPR was started. Patient was shocked 3 for V. fib, he was taken emergently to the slabber where a stent was placed in the LAD. Imagin06/11/18 Chest Xray: no consolidations Cultures: 06/11/2018 Blood: no growth to date 06/11/2018 Urine: no growth to date 06/11/2018 Tracheal Aspirate: Staph aureus STEMI with cardiac stent to LAD: Cardiology is following, still on IV ntg drip Acute respiratory failure, s/p Intubation and now extubated 06/11/17: wean o2 as appropriate Acute combined heart failure, poa: may benefit from lasix, will defer to Cardiology Cardiac arrest, with successful resuscitation Continous right sided CP, possible related to defibrillation/chest compression; continue pain management, d/w Dr. Miles suspect Caron and he will start NSAIDS SIRS with organ dysfunction vs Sepsis will stop abx and monitor, urine culture pending, consulted ID, WBC increasing Staph aureus in trach aspirate, pending identity and sensitivities==>MSSA pneumonia on iv Vancomycin Status post V. fib cardiac arrest with estimated EF 20-30%: LifeVest being applied today Hypokalemia resolved: monitor bmp closely Cardiogenic syncope repeat CXR, ?worsening heart failure, gave a dose of iv lasix 40mg x 1==> improved, able to get off bipap History Interval history: Patient was seen and examined. Follow-up on current diagnosis of chest pains, still with right sided chest pains mostly. Overnight eventful with SOB, he was placed on bipap with fio2 of 65%. I ordered cxr and gave a dose of lasix. Patient denies any nausea/vomiting or severe headaches. Imaging, nursing note, chart, labs and old chart reviewed. Discussed with patient. He doesn't remember much. Hospitalist Physical - Physical exam Narrative exam: Gen: WDWN, NAD, Awake, Alert, Orientated x 2, he think he is at [facility] again today HEENT: NCAT, EOMI, PERRL, OP Clear Neck: supple, no adenopathy, no thyromegaly, no JVD CVS/Heart: RRR, normal S1S2, pulses present bilaterally Chest/Lungs: CTA B, Symmetrical chest expansion, good air entry bilaterally GI/Abdomen: soft, NTND, good bowel sounds, no guarding or rebound /Bladder: no suprapubic tenderness, no CVA or paraspinal tenderness Extermity/Skin: no c/c/e, no obvious rash MSK: FROM x 4 Neuro: CN 2-12 grossly intact, no new focal deficits Psych: calm - Constitutional Vitals: Temp Pulse Resp BP Pulse Ox 98.8 F 103 H 16 140/95 100 06/14/18 07:40 06/14/18 07:40 06/14/18 07:40 06/14/18 07:40 06/14/18 11:21 General appearance: Present: no acute distress, well-nourished Results - Labs CBC & Chem 7: 06/14/18 03:08 06/14/18 03:08 Labs: Laboratory Last Values WBC 25.6 K/mm3 (4.5-11.0) H 06/14/18 03:08 RBC 4.45 M/mm3 (3.65-5.03) 06/14/18 03:08 Hgb 12.8 gm/dl (11.8-15.2) 06/14/18 03:08 Hct 37.3 % (35.5-45.6) 06/14/18 03:08 MCV 84 fl (84-94) 06/14/18 03:08 MCH 29 pg (28-32) 06/14/18 03:08 MCHC 34 % (32-34) 06/14/18 03:08 RDW 12.9 % (13.2-15.2) L 06/14/18 03:08 Plt Count 243 K/mm3 (140-440) 06/14/18 03:08 Lymph # New Home Sales Consultant 06/11/18 01:31 Add Manual Diff Complete 06/12/18 04:41 Total Counted 100 06/12/18 04:41 Seg Neutrophils % New Home Sales Consultant 06/11/18 04:58 Seg Neuts % (Manual) 95.0 % (40.0-70.0) H 06/12/18 04:41 Band Neutrophils % 0 % 06/12/18 04:41 Lymphocytes % (Manual) 2.0 % (13.4-35.0) L 06/12/18 04:41 Reactive Lymphs % (Man) 0 % 06/12/18 04:41 Monocytes % (Manual) 3.0 % (0.0-7.3) 06/12/18 04:41 Eosinophils % (Manual) 0 % (0.0-4.3) 06/12/18 04:41 Basophils % (Manual) 0 % (0.0-1.8) 06/12/18 04:41 Metamyelocytes % 0 % 06/12/18 04:41 Myelocytes % 0 % 06/12/18 04:41 Promyelocytes % 0 % 06/12/18 04:41 Blast Cells % 0 % 06/12/18 04:41 Nucleated RBC % Not Reportable 06/12/18 04:41 Seg Neutrophils # Man 28.6 K/mm3 (1.8-7.7) H 06/12/18 04:41 Band Neutrophils # 0.0 K/mm3 06/12/18 04:41 Lymphocytes # (Manual) 0.6 K/mm3 (1.2-5.4) L 06/12/18 04:41 Abs React Lymphs (Man) 0.0 K/mm3 06/12/18 04:41 Monocytes # (Manual) 0.9 K/mm3 (0.0-0.8) H 06/12/18 04:41 Eosinophils # (Manual) 0.0 K/mm3 (0.0-0.4) 06/12/18 04:41 Basophils # (Manual) 0.0 K/mm3 (0.0-0.1) 06/12/18 04:41 Metamyelocytes # 0.0 K/mm3 06/12/18 04:41 Myelocytes # 0.0 K/mm3 06/12/18 04:41 Promyelocytes # 0.0 K/mm3 06/12/18 04:41 Blast Cells # 0.0 K/mm3 06/12/18 04:41 WBC Morphology Not Reportable 06/12/18 04:41 Hypersegmented Neuts Not Reportable 06/12/18 04:41 Hyposegmented Neuts Not Reportable 06/12/18 04:41 Hypogranular Neuts Not Reportable 06/12/18 04:41 Smudge Cells Not Reportable 06/12/18 04:41 Toxic Granulation Not Reportable 06/12/18 04:41 Toxic Vacuolation Not Reportable 06/12/18 04:41 Dohle Bodies Not Reportable 06/12/18 04:41 Pelger-Huet Anomaly Not Reportable 06/12/18 04:41 Zander Rods Not Reportable 06/12/18 04:41 Platelet Estimate Consistent w auto 06/12/18 04:41 Clumped Platelets Not Reportable 06/12/18 04:41 Plt Clumps, EDTA Not Reportable 06/12/18 04:41 Large Platelets Not Reportable 06/12/18 04:41 Giant Platelets Not Reportable 06/12/18 04:41 Platelet Satelliting Not Reportable 06/12/18 04:41 Plt Morphology Comment Not Reportable 06/12/18 04:41 RBC Morphology Not Reportable 06/12/18 04:41 Dimorphic RBCs Not Reportable 06/12/18 04:41 Polychromasia Not Reportable 06/12/18 04:41 Hypochromasia Not Reportable 06/12/18 04:41 Poikilocytosis Not Reportable 06/12/18 04:41 Anisocytosis 1+ 06/12/18 04:41 Microcytosis Not Reportable 06/12/18 04:41 Macrocytosis Not Reportable 06/12/18 04:41 Spherocytes Not Reportable 06/12/18 04:41 Pappenheimer Bodies Not Reportable 06/12/18 04:41 Sickle Cells Not Reportable 06/12/18 04:41 Target Cells Not Reportable 06/12/18 04:41 Tear Drop Cells Not Reportable 06/12/18 04:41 Ovalocytes Not Reportable 06/12/18 04:41 Helmet Cells Not Reportable 06/12/18 04:41 [place] Bodies Not Reportable 06/12/18 04:41 [place] Rings Not Reportable 06/12/18 04:41 Crapo Cells Not Reportable 06/12/18 04:41 Bite Cells Not Reportable 06/12/18 04:41 Crenated Cell Not Reportable 06/12/18 04:41 Elliptocytes Not Reportable 06/12/18 04:41 Acanthocytes (Spur) Not Reportable 06/12/18 04:41 Rouleaux Not Reportable 06/12/18 04:41 Hemoglobin C Crystals Not Reportable 06/12/18 04:41 Schistocytes Not Reportable 06/12/18 04:41 Malaria parasites Not Reportable 06/12/18 04:41 Joel Bodies Not Reportable 06/12/18 04:41 Hem Pathologist Commnt No 06/12/18 04:41 PT 13.9 Sec. (12.2-14.9) 06/11/18 01:31 INR 1.03 (0.87-1.13) 06/11/18 01:31 APTT 29.2 Sec. (24.2-36.6) 06/11/18 01:31 POC ABG pH 7.475 (7.35-7.45) H 06/13/18 23:46 POC ABG pCO2 28.6 (35-45) L 06/13/18 23:46 POC ABG pO2 49 (80-105) L 06/13/18 23:46 POC ABG HCO3 21.1 06/13/18 23:46 POC ABG Total CO2 22 06/13/18 23:46 POC ABG O2 Sat 87 06/13/18 23:46 POC ABG Base Excess -3 06/13/18 23:46 FiO2 100 % 06/13/18 23:46 Sodium 132 mmol/L (137-145) L 06/14/18 03:08 Potassium 3.6 mmol/L (3.6-5.0) 06/14/18 03:08 Chloride 94.2 mmol/L (98-107) L 06/14/18 03:08 Carbon Dioxide 20 mmol/L (22-30) L 06/14/18 03:08 Anion Gap 21 mmol/L 06/14/18 03:08 BUN 27 mg/dL (9-20) H 06/14/18 03:08 Creatinine 1.1 mg/dL (0.8-1.5) 06/14/18 03:08 Estimated GFR > 60 ml/min 06/14/18 03:08 BUN/Creatinine Ratio 25 % 06/14/18 03:08 Glucose 115 mg/dL (75-100) H 06/14/18 03:08 POC Glucose 117 (70-105) H 06/14/18 11:59 Hemoglobin A1c 5.9 % (4-6) 06/12/18 04:41 Lactic Acid 3.80 mmol/L (0.7-2.0) H* 06/11/18 17:34 Calcium 8.1 mg/dL (8.4-10.2) L 06/14/18 03:08 Magnesium 2.10 mg/dL (1.7-2.3) 06/12/18 04:41 Total Bilirubin 0.20 mg/dL (0.1-1.2) 06/11/18 01:31 AST 56 units/L (5-40) H 06/11/18 01:31 ALT 58 units/L (7-56) H 06/11/18 01:31 Alkaline Phosphatase 79 units/L (35-129) 06/11/18 01:31 Ammonia 62.0 umol/L (25-60) H 06/11/18 01:31 Total Creatine Kinase 2243 units/L (55-170) H 06/12/18 04:41 CK-MB (CK-2) 207.4 ng/mL (0.0-4.0) H 06/12/18 04:41 CK-MB (CK-2) Rel Index 9.2 (0-4) H 06/12/18 04:41 Troponin T 2.320 ng/mL (0.00-0.029) H* D 06/12/18 04:41 NT-Pro-B Natriuret Pep 1466 pg/mL (0-900) H 06/11/18 01:31 Total Protein 5.9 g/dL (6.3-8.2) L 06/11/18 01:31 Albumin 3.8 g/dL (3.9-5) L 06/11/18 01:31 Albumin/Globulin Ratio 1.8 % 06/11/18 01:31 Triglycerides 41 mg/dL (2-149) 06/11/18 04:58 Cholesterol 140 mg/dL (50-199) 06/11/18 04:58 LDL Cholesterol Direct 103 mg/dL (50-130) 06/11/18 04:58 HDL Cholesterol 41 mg/dL (40-59) 06/11/18 04:58 Cholesterol/HDL Ratio 3.41 % 06/11/18 04:58 TSH 7.520 mlU/mL (0.270-4.200) H 06/11/18 01:31 Thyroxine (T4) 7.1 ug/dL (4.0-12.0) 06/11/18 04:58 Urine Color Yellow (Yellow) 06/11/18 01:31 Urine Turbidity Turbid (Clear) 06/11/18 01:31 Urine pH 6.0 (5.0-7.0) 06/11/18 01:31 Ur Specific [place] 1.027 (1.003-1.030) 06/11/18 01:31 Urine Protein 100 mg/dl mg/dL (Negative) 06/11/18 01:31 Urine Glucose (UA) Negative mg/dL (Negative) 06/11/18 01:31 Urine Ketones Trace mg/dL (Negative) 06/11/18 01:31 Urine Blood Negative (Negative) 06/11/18 01:31 Urine Nitrite Negative (Negative) 06/11/18 01:31 Urine Bilirubin Negative (Negative) 06/11/18 01:31 Urine Urobilinogen < 2.0 mg/dL (<2.0) 06/11/18 01:31 Ur Leukocyte Esterase Trace (Negative) 06/11/18 01:31 Urine WBC (Auto) 11.0 /HPF (0.0-6.0) H 06/11/18 01:31 Urine RBC (Auto) 36.0 /HPF (0.0-6.0) 06/11/18 01:31 Urine Bacteria (Auto) 4+ /HPF (Negative) 06/11/18 01:31 Urine Mucus 3+ /HPF 06/11/18 01:31 Urine Yeast (Budding) 3+ /HPF 06/11/18 01:31 Urine Sperm 3+ /HPF (CHILD PSYCHOLOGIST) 06/11/18 01:31 Urine Opiates Screen Presumptive positive 06/11/18 01:31 Urine Methadone Screen Presumptive negative 06/11/18 01:31 Ur Barbiturates Screen Presumptive negative 06/11/18 01:31 Ur Phencyclidine Scrn Presumptive negative 06/11/18 01:31 Ur Amphetamines Screen Presumptive negative 06/11/18 01:31 U Benzodiazepines Scrn Presumptive negative 06/11/18 01:31 Urine Cocaine Screen Presumptive negative 06/11/18 01:31 U Marijuana (THC) Screen Presumptive negative 06/11/18 01:31 Drugs of Abuse Note Disclamer 06/11/18 01:31 Plasma/Serum Alcohol < 0.01 % (0-0.07) 06/11/18 01:31 Blood Type O NEGATIVE 06/11/18 01:31 Antibody Screen Negative 06/11/18 01:31 Nutrition/Malnutrition Assess - Dietary Evaluation Nutrition/Malnutrition Findings: Nutrition Notes Start: 06/11/18 13:34 Freq: Status: Active Protocol: Document 06/13/18 14:31 RM (Rec: 06/13/18 14:46 RM [id number]) Nutrition Notes Initial or Follow up Reassessment Current Diagnoses Sepsis Other Pertinent Diagnosis s/p cardiac arrest, s/p vfib Current Diet Cl liq Labs/Tests Reviewed Medications Reviewed Height 5 ft 8 in Weight 79.379 kg [place] Body Weight (lbs) 154.0 BMI 26.6 Subjective/Other Information Pt stated that he has been drinking water and sprite. Also stated that he is nauseous but has not vomited. Burn Absent Trauma Absent #1 Nutrition Diagnoses Predicted suboptimal energy intake Diagnosis Progress(for reassessment Continues documentation) Is patient on ventilator? No Is Patient Ambulatory and/or Out of Bed No REE-([facility]-confined to bed) [phone] Calculation Used for Recommendations [facility] Additional Notes Protein Needs: 64-79g (0.8-1g/ kg) Fluid Needs: 1ml/kcal Nutrition Intervention Change Diet Order: Advance diet when medically able Add Supplement/Snack (indicate name/kcal Ensure Clear Mixed [place] 1 /protein ) daily Goal #1 PO tolerance Goal #2 Diet advancement Anticipated Discharge Needs: Unable to determine at this time Follow-Up By: 06/16/18 Additional Comments Follow for PO intakes, ONS intakes
[2018-06-14] MEDS: ZOFRAN IV PRN (21:06)
[2018-06-15] MEDS: AMBIEN PO PRN (00:19)
[2018-06-15] MEDS: VANCOMYCIN 1,250 MG in NACL 0.9% 250ML 250 ML IV SCH ×2 (05:40→21:42)
[2018-06-15] MEDS: HumaLOG SUB-Q SCH ×4 (08:39→21:50)
--- NOTE | 2018-06-15 09:04 | Progress Note ---
Assessment and Plan Assessment and plan: Patient is 57 yo man without chronic medical problems who presented to [facility] ED with Chest pains. While he was in the waiting room, he had a syncopal episode. He was brought back into the emergency room where he had cardiac arrest and CPR was started. Patient was shocked 3 for V. fib, he was taken emergently to the quality assurance/r&d lab technician where a stent was placed in the LAD. Imagin06/11/18 Chest Xray: no consolidations Cultures: 06/11/2018 Blood: no growth to date 06/11/2018 Urine: no growth to date 06/11/2018 Tracheal Aspirate: Staph aureus STEMI with cardiac stent to LAD: Cardiology is following, still on IV ntg drip Acute respiratory failure, s/p Intubation and now extubated 06/11/17: wean o2 as appropriate Acute combined heart failure, poa: may benefit from lasix, will defer to Cardiology Cardiac arrest, with successful resuscitation Continous right sided CP, possible related to defibrillation/chest compression; continue pain management, d/w Dr. Miles suspect Caron and start NSAIDS SIRS with organ dysfunction vs Sepsis will stop abx and monitor, urine culture pending, consulted ID, WBC increasing Staph aureus in trach aspirate, pending identity and sensitivities==>MSSA pneumo arvin on iv Vancomycin Status post V. fib cardiac arrest with estimated EF 20-30%: LifeVest being applied today Hypokalemia resolved: monitor bmp closely Cardiogenic syncope Repeat CXR==>Worsening heart failure, on night, Dr. Russell gave iv lasix then yesterday I gave IV lasix x 2, i spoke with Dr. Urbina and he will come re-evaluate Patient is dry heaving with active chest pains: get stat EKG, stat Troponin, notified and d/w Dr. Urbina I requested that he be sent back to the ICU for closer monitoring and have done the transfer orders. I ordered bmp, follow renal function, electrolytes closely==>K is 2.9, ordered IV replacement and iv mag CCT 35 minutes History Interval history: Patient was seen and examined. Follow-up on current diagnosis of chest pains, still with chest pains. Now with n/v. Overnight eventful with SOB and n/v, bipap removed this morning, now on 4.5 liters O2. Patient denies any severe headaches. Imaging, nursing note, chart, labs and old chart reviewed. Discussed with patient. He doesn't remember much. Hospitalist Physical - Physical exam Narrative exam: Gen: ill appearing dry heaving, NAD, Awake, Alert, Orientated x 3 HEENT: NCAT, EOMI, PERRL, OP Clear Neck: supple, no adenopathy, no thyromegaly, + JVD CVS/Heart: Regular tachycardia, normal S1S2, pulses present bilaterally Chest/Lungs: diminished bs bilateral Symmetrical chest expansion, good air entry bilaterally GI/Abdomen: soft, NTND, good bowel sounds, no guarding or rebound /Bladder: no suprapubic tenderness, no CVA or paraspinal tenderness Extermity/Skin: no c/c/e, no obvious rash MSK: FROM x 4 Neuro: CN 2-12 grossly intact, no new focal deficits Psych: calm - Constitutional Vitals: Temp Pulse Resp BP Pulse Ox 98.3 F 101 H 20 126/68 98 06/15/18 07:28 06/15/18 07:28 06/15/18 07:28 06/15/18 07:28 06/15/18 07:28 General appearance: Present: no acute distress, well-nourished Results - Labs CBC & Chem 7: 06/14/18 03:08 06/15/18 09:13 Labs: Laboratory Last Values WBC 25.6 K/mm3 (4.5-11.0) H 06/14/18 03:08 RBC 4.45 M/mm3 (3.65-5.03) 06/14/18 03:08 Hgb 12.8 gm/dl (11.8-15.2) 06/14/18 03:08 Hct 37.3 % (35.5-45.6) 06/14/18 03:08 MCV 84 fl (84-94) 06/14/18 03:08 MCH 29 pg (28-32) 06/14/18 03:08 MCHC 34 % (32-34) 06/14/18 03:08 RDW 12.9 % (13.2-15.2) L 06/14/18 03:08 Plt Count 243 K/mm3 (140-440) 06/14/18 03:08 Lymph # Range Aide 06/11/18 01:31 Add Manual Diff Complete 06/12/18 04:41 Total Counted 100 06/12/18 04:41 Seg Neutrophils % Range Aide 06/11/18 04:58 Seg Neuts % (Manual) 95.0 % (40.0-70.0) H 06/12/18 04:41 Band Neutrophils % 0 % 06/12/18 04:41 Lymphocytes % (Manual) 2.0 % (13.4-35.0) L 06/12/18 04:41 Reactive Lymphs % (Man) 0 % 06/12/18 04:41 Monocytes % (Manual) 3.0 % (0.0-7.3) 06/12/18 04:41 Eosinophils % (Manual) 0 % (0.0-4.3) 06/12/18 04:41 Basophils % (Manual) 0 % (0.0-1.8) 06/12/18 04:41 Metamyelocytes % 0 % 06/12/18 04:41 Myelocytes % 0 % 06/12/18 04:41 Promyelocytes % 0 % 06/12/18 04:41 Blast Cells % 0 % 06/12/18 04:41 Nucleated RBC % Not Reportable 06/12/18 04:41 Seg Neutrophils # Man 28.6 K/mm3 (1.8-7.7) H 06/12/18 04:41 Band Neutrophils # 0.0 K/mm3 06/12/18 04:41 Lymphocytes # (Manual) 0.6 K/mm3 (1.2-5.4) L 06/12/18 04:41 Abs React Lymphs (Man) 0.0 K/mm3 06/12/18 04:41 Monocytes # (Manual) 0.9 K/mm3 (0.0-0.8) H 06/12/18 04:41 Eosinophils # (Manual) 0.0 K/mm3 (0.0-0.4) 06/12/18 04:41 Basophils # (Manual) 0.0 K/mm3 (0.0-0.1) 06/12/18 04:41 Metamyelocytes # 0.0 K/mm3 06/12/18 04:41 Myelocytes # 0.0 K/mm3 06/12/18 04:41 Promyelocytes # 0.0 K/mm3 06/12/18 04:41 Blast Cells # 0.0 K/mm3 06/12/18 04:41 WBC Morphology Not Reportable 06/12/18 04:41 Hypersegmented Neuts Not Reportable 06/12/18 04:41 Hyposegmented Neuts Not Reportable 06/12/18 04:41 Hypogranular Neuts Not Reportable 06/12/18 04:41 Smudge Cells Not Reportable 06/12/18 04:41 Toxic Granulation Not Reportable 06/12/18 04:41 Toxic Vacuolation Not Reportable 06/12/18 04:41 Dohle Bodies Not Reportable 06/12/18 04:41 Pelger-Huet Anomaly Not Reportable 06/12/18 04:41 Zander Rods Not Reportable 06/12/18 04:41 Platelet Estimate Consistent w auto 06/12/18 04:41 Clumped Platelets Not Reportable 06/12/18 04:41 Plt Clumps, EDTA Not Reportable 06/12/18 04:41 Large Platelets Not Reportable 06/12/18 04:41 Giant Platelets Not Reportable 06/12/18 04:41 Platelet Satelliting Not Reportable 06/12/18 04:41 Plt Morphology Comment Not Reportable 06/12/18 04:41 RBC Morphology Not Reportable 06/12/18 04:41 Dimorphic RBCs Not Reportable 06/12/18 04:41 Polychromasia Not Reportable 06/12/18 04:41 Hypochromasia Not Reportable 06/12/18 04:41 Poikilocytosis Not Reportable 06/12/18 04:41 Anisocytosis 1+ 06/12/18 04:41 Microcytosis Not Reportable 06/12/18 04:41 Macrocytosis Not Reportable 06/12/18 04:41 Spherocytes Not Reportable 06/12/18 04:41 Pappenheimer Bodies Not Reportable 06/12/18 04:41 Sickle Cells Not Reportable 06/12/18 04:41 Target Cells Not Reportable 06/12/18 04:41 Tear Drop Cells Not Reportable 06/12/18 04:41 Ovalocytes Not Reportable 06/12/18 04:41 Helmet Cells Not Reportable 06/12/18 04:41 Zurita-[place] Bodies Not Reportable 06/12/18 04:41 [place] Rings Not Reportable 06/12/18 04:41 Yenny Cells Not Reportable 06/12/18 04:41 Bite Cells Not Reportable 06/12/18 04:41 Crenated Cell Not Reportable 06/12/18 04:41 Elliptocytes Not Reportable 06/12/18 04:41 Acanthocytes (Spur) Not Reportable 06/12/18 04:41 Rouleaux Not Reportable 06/12/18 04:41 Hemoglobin C Crystals Not Reportable 06/12/18 04:41 Schistocytes Not Reportable 06/12/18 04:41 Malaria parasites Not Reportable 06/12/18 04:41 Joel Bodies Not Reportable 06/12/18 04:41 Hem Pathologist Commnt No 06/12/18 04:41 PT 13.9 Sec. (12.2-14.9) 06/11/18 01:31 INR 1.03 (0.87-1.13) 06/11/18 01:31 APTT 29.2 Sec. (24.2-36.6) 06/11/18 01:31 POC ABG pH 7.475 (7.35-7.45) H 06/13/18 23:46 POC ABG pCO2 28.6 (35-45) L 06/13/18 23:46 POC ABG pO2 49 (80-105) L 06/13/18 23:46 POC ABG HCO3 21.1 06/13/18 23:46 POC ABG Total CO2 22 06/13/18 23:46 POC ABG O2 Sat 87 06/13/18 23:46 POC ABG Base Excess -3 06/13/18 23:46 FiO2 100 % 06/13/18 23:46 Sodium 132 mmol/L (137-145) L 06/14/18 03:08 Potassium 3.6 mmol/L (3.6-5.0) 06/14/18 03:08 Chloride 94.2 mmol/L (98-107) L 06/14/18 03:08 Carbon Dioxide 20 mmol/L (22-30) L 06/14/18 03:08 Anion Gap 21 mmol/L 06/14/18 03:08 BUN 27 mg/dL (9-20) H 06/14/18 03:08 Creatinine 1.1 mg/dL (0.8-1.5) 06/14/18 03:08 Estimated GFR > 60 ml/min 06/14/18 03:08 BUN/Creatinine Ratio 25 % 06/14/18 03:08 Glucose 115 mg/dL (75-100) H 06/14/18 03:08 POC Glucose 114 (70-105) H 06/15/18 05:54 Hemoglobin A1c 5.9 % (4-6) 06/12/18 04:41 Lactic Acid 3.80 mmol/L (0.7-2.0) H* 06/11/18 17:34 Calcium 8.1 mg/dL (8.4-10.2) L 06/14/18 03:08 Magnesium 2.10 mg/dL (1.7-2.3) 06/12/18 04:41 Total Bilirubin 0.20 mg/dL (0.1-1.2) 06/11/18 01:31 AST 56 units/L (5-40) H 06/11/18 01:31 ALT 58 units/L (7-56) H 06/11/18 01:31 Alkaline Phosphatase 79 units/L (35-129) 06/11/18 01:31 Ammonia 62.0 umol/L (25-60) H 06/11/18 01:31 Total Creatine Kinase 2243 units/L (55-170) H 06/12/18 04:41 CK-MB (CK-2) 207.4 ng/mL (0.0-4.0) H 06/12/18 04:41 CK-MB (CK-2) Rel Index 9.2 (0-4) H 06/12/18 04:41 Troponin T 2.320 ng/mL (0.00-0.029) H* D 06/12/18 04:41 NT-Pro-B Natriuret Pep 1466 pg/mL (0-900) H 06/11/18 01:31 Total Protein 5.9 g/dL (6.3-8.2) L 06/11/18 01:31 Albumin 3.8 g/dL (3.9-5) L 06/11/18 01:31 Albumin/Globulin Ratio 1.8 % 06/11/18 01:31 Triglycerides 41 mg/dL (2-149) 06/11/18 04:58 Cholesterol 140 mg/dL (50-199) 06/11/18 04:58 LDL Cholesterol Direct 103 mg/dL (50-130) 06/11/18 04:58 HDL Cholesterol 41 mg/dL (40-59) 06/11/18 04:58 Cholesterol/HDL Ratio 3.41 % 06/11/18 04:58 TSH 7.520 mlU/mL (0.270-4.200) H 06/11/18 01:31 Thyroxine (T4) 7.1 ug/dL (4.0-12.0) 06/11/18 04:58 Urine Color Yellow (Yellow) 06/11/18 01:31 Urine Turbidity Turbid (Clear) 06/11/18 01:31 Urine pH 6.0 (5.0-7.0) 06/11/18 01:31 Ur Specific [place] 1.027 (1.003-1.030) 06/11/18 01:31 Urine Protein 100 mg/dl mg/dL (Negative) 06/11/18 01:31 Urine Glucose (UA) Negative mg/dL (Negative) 06/11/18 01:31 Urine Ketones Trace mg/dL (Negative) 06/11/18 01:31 Urine Blood Negative (Negative) 06/11/18 01:31 Urine Nitrite Negative (Negative) 06/11/18 01:31 Urine Bilirubin Negative (Negative) 06/11/18 01:31 Urine Urobilinogen < 2.0 mg/dL (<2.0) 06/11/18 01:31 Ur Leukocyte Esterase Trace (Negative) 06/11/18 01:31 Urine WBC (Auto) 11.0 /HPF (0.0-6.0) H 06/11/18 01:31 Urine RBC (Auto) 36.0 /HPF (0.0-6.0) 06/11/18 01:31 Urine Bacteria (Auto) 4+ /HPF (Negative) 06/11/18 01:31 Urine Mucus 3+ /HPF 06/11/18 01:31 Urine Yeast (Budding) 3+ /HPF 06/11/18 01:31 Urine Sperm 3+ /HPF (CRISIS THERAPIST) 06/11/18 01:31 Urine Opiates Screen Presumptive positive 06/11/18 01:31 Urine Methadone Screen Presumptive negative 06/11/18 01:31 Ur Barbiturates Screen Presumptive negative 06/11/18 01:31 Ur Phencyclidine Scrn Presumptive negative 06/11/18 01:31 Ur Amphetamines Screen Presumptive negative 06/11/18 01:31 U Benzodiazepines Scrn Presumptive negative 06/11/18 01:31 Urine Cocaine Screen Presumptive negative 06/11/18 01:31 U Marijuana (THC) Screen Presumptive negative 06/11/18 01:31 Drugs of Abuse Note Disclamer 06/11/18 01:31 Plasma/Serum Alcohol < 0.01 % (0-0.07) 06/11/18 01:31 Blood Type O NEGATIVE 06/11/18 01:31 Antibody Screen Negative 06/11/18 01:31 Nutrition/Malnutrition Assess - Dietary Evaluation Nutrition/Malnutrition Findings: Nutrition Notes Start: 06/11/18 13:34 Freq: Status: Active Protocol: Document 06/13/18 14:31 RM (Rec: 06/13/18 14:46 RM [id number]) Nutrition Notes Initial or Follow up Reassessment Current Diagnoses Sepsis Other Pertinent Diagnosis s/p cardiac arrest, s/p vfib Current Diet Cl liq Labs/Tests Reviewed Medications Reviewed Height 5 ft 8 in Weight 79.379 kg Fel[place] Body Weight (lbs) 154.0 BMI 26.6 Subjective/Other Information Pt stated that he has been drinking water and sprite. Also stated that he is nauseous but has not vomited. Burn Absent Trauma Absent #1 Nutrition Diagnoses Predicted suboptimal energy intake Diagnosis Progress(for reassessment Continues documentation) Is patient on ventilator? No Is Patient Ambulatory and/or Out of Bed No REE-([facility]-confined to bed) [phone] Calculation Used for Recommendations [facility] Additional Notes Protein Needs: 64-79g (0.8-1g/ kg) Fluid Needs: 1ml/kcal Nutrition Intervention Change Diet Order: Advance diet when medically able Add Supplement/Snack (indicate name/kcal Ensure Clear Mixed Coello 1 /protein ) daily Goal #1 PO tolerance Goal #2 Diet advancement Anticipated Discharge Needs: Unable to determine at this time Follow-Up By: 06/16/18 Additional Comments Follow for PO intakes, ONS intakes
--- NOTE | 2018-06-15 09:55 | Progress Note ---
Assessment and Plan 1. Status post cardiac arrest 2. Status post ST elevation MS with PCI and stent to the LAD 3. Ischemic cardiomyopathy LVEF 20% 4. UTI Plan. Patient is currently stable. start on regular diet Subjective Date of service: 06/15/18 Principal diagnosis: CAD Interval history: No cardiac symptoms. He has loose bowels. He states he would like regular food. Life-vest delivered Objective Vital Signs Temp Pulse Resp BP Pulse Ox 06/15/18 07:28 98.3 F 101 H 20 126/68 98 06/15/18 03:41 98.7 F 96 H 16 137/84 96 06/14/18 23:10 97.2 F L 102 H 18 108/67 87 06/14/18 21:06 99 H 114/70 06/14/18 20:13 97.6 F 98 H 16 113/69 96 06/14/18 16:58 97.4 F L 92 H 16 107/66 93 06/14/18 11:21 100 06/14/18 10:00 106 H - Physical Examination General: No Apparent Distress HEENT: Positive: PERRL Neck: Positive: trachea midline Cardiac: Positive: Regular Rate, S1/S2, S3, PMI, Dilated, Laterally Displaced Lungs: Positive: Normal Exam, clear to auscultation, No Wheeze, Rales, Rhonchi Neuro: Positive: Grossly Intact Abdomen: Positive: Unremarkable, Soft Skin: Positive: Clear Incision: Cardiac Cath Site (right groin; no hematoma.) Musculoskeletal: Normal Range of Motion Extremities: Absent: edema - Imaging and Cardiology EKG: image reviewed
[2018-06-15 10:05] LABS: BUN/Creatinine Ratio 24; Blood Urea Nitrogen 24 mg/dL (9-20); Calcium 7.9 mg/dL (8.4-10.2); Hemolysis Index 1
[2018-06-15] MEDS ORDERED: MAGNESIUM SULFATE 2GM/50ML 2 GM/50 ML BAG IV ONE (10:42)
[2018-06-15] MEDS ORDERED: KCL 10MEQ/100ML 10 MEQ/100 ML BAG IV SCH (11:00)
[2018-06-15] MEDS: ZOFRAN IV PRN ×2 (11:06→23:11)
[2018-06-15] MEDS: LOVENOX SUB-Q SCH (11:10)
[2018-06-15] MEDS: PLAVIX PO SCH (11:10)
[2018-06-15] MEDS: ASPIRIN PO SCH (11:14)
[2018-06-15] MEDS: KCL 10MEQ/100ML 10 MEQ/100 ML BAG IV SCH ×2 (11:51→13:30)
[2018-06-15] MEDS: ZESTRIL PO SCH (11:54)
[2018-06-15] MEDS: IMDUR PO SCH (11:54)
[2018-06-15] MEDS: LOPRESSOR PO SCH ×2 (11:54→21:41)
[2018-06-15] MEDS: CORDARONE PO SCH ×2 (11:54→21:41)
[2018-06-15] MEDS ORDERED: NACL 0.9% 250ML 250 ML ONE (12:17)
[2018-06-15] MEDS: TYLENOL PO PRN (21:57)
[2018-06-15] MEDS ORDERED: ALUM-MAG HYDROX-SIMETH 200-200-20MG/5ML PO ONE (22:00)
[2018-06-16] MEDS ORDERED: BENTYL PO ONE (01:39)
[2018-06-16] MEDS ORDERED: PROTONIX PO ONE (02:00)
[2018-06-16 04:48] LABS: Hematocrit 36.2 % (35.5-45.6); Hemoglobin 12.6 gm/dl (11.8-15.2); Mean Corpuscular HGB Conc 35 % (32-34); Mean Corpuscular Volume 83 fl (84-94); Platelet Count 350 K/mm3 (140-440); Red Blood Count 4.37 M/mm3 (3.65-5.03); Red Cell Distribution Width 12.7 % (13.2-15.2)
[2018-06-16 05:04] LABS: BUN/Creatinine Ratio 19; Blood Urea Nitrogen 19 mg/dL (9-20); Calcium 8.2 mg/dL (8.4-10.2); Hemolysis Index 8
[2018-06-16] MEDS: VANCOMYCIN 1,250 MG in NACL 0.9% 250ML 250 ML IV SCH ×2 (06:23→15:46)
--- NOTE | 2018-06-16 07:55 | Progress Note ---
Assessment and Plan Assessment and plan: Patient is 57 yo man without chronic medical problems who presented to [facility] ED with Chest pains. While he was in the waiting room, he had a syncopal episode. He was brought back into the emergency room where he had cardiac arrest and CPR was started. Patient was shocked 3 for V. fib, he was taken emergently to the stucco laborer where a stent was placed in the LAD. Imagin06/11/18 Chest Xray: no consolidations Cultures: 06/11/2018 Blood: no growth to date 06/11/2018 Urine: no growth to date 06/11/2018 Tracheal Aspirate: Staph aureus STEMI with cardiac stent to LAD: Cardiology is following, still on IV ntg drip Acute respiratory failure, s/p Intubation and now extubated 06/11/17: wean o2 as appropriate Acute combined heart failure, poa: may benefit from lasix, will defer to Cardiology Cardiac arrest, with successful resuscitation Continous right sided CP, possible related to defibrillation/chest compression; continue pain management, d/w Dr. Miles suspect Caron and start NSAIDS SIRS with organ dysfunction vs Sepsis will stop abx and monitor, urine culture pending, consulted ID, WBC increasing Staph aureus in trach aspirate, pending identity and sensitivities==>MSSA pneumo arvin on iv Vancomycin Status post V. fib cardiac arrest with estimated EF 20-30%: LifeVest being applied today Hypokalemia resolved: monitor bmp closely Cardiogenic syncope Main issue is n/v, abd pain and distension with diarrhea. Will get CT scan abd/pelvis==>wide differential including bowel ischemia from the cardiogenic shock, colitis, gib looks clinically better today than yesterday History Interval history: Patient was seen and examined. Follow-up on current diagnosis of chest pains, still with chest pains. Now with n/v. Overnight eventful with SOB and n/v, off o2 entirely this morning, protonix and bentyl help the abd pains, has diarrhea. Patient denies any severe headaches. Imaging, nursing note, chart, labs and old chart reviewed. Discussed with patient. He doesn't remember much. Hospitalist Physical - Physical exam Narrative exam: Gen: ill appearing dry heaving, NAD, Awake, Alert, Orientated x 3 HEENT: NCAT, EOMI, PERRL, OP Clear Neck: supple, no adenopathy, no thyromegaly, + JVD CVS/Heart: RRR, normal S1S2, pulses present bilaterally Chest/Lungs: diminished bs bilateral but improved, Symmetrical chest expansion, good air entry bilaterally GI/Abdomen: soft, diffuse tender, distended good bowel sounds, no guarding or rebound /Bladder: no suprapubic tenderness, no CVA or paraspinal tenderness Extermity/Skin: no c/c/e, no obvious rash MSK: FROM x 4 Neuro: CN 2-12 grossly intact, no new focal deficits Psych: calm - Constitutional Vitals: Temp Pulse Resp BP Pulse Ox 98.1 F 91 H 20 123/81 97 06/16/18 07:25 06/16/18 07:25 06/16/18 07:25 06/16/18 07:25 06/16/18 07:25 General appearance: Present: no acute distress, well-nourished Results - Labs CBC & Chem 7: 06/16/18 04:18 06/16/18 04:18 Labs: Laboratory Last Values WBC 16.6 K/mm3 (4.5-11.0) H 06/16/18 04:18 RBC 4.37 M/mm3 (3.65-5.03) 06/16/18 04:18 Hgb 12.6 gm/dl (11.8-15.2) 06/16/18 04:18 Hct 36.2 % (35.5-45.6) 06/16/18 04:18 MCV 83 fl (84-94) L 06/16/18 04:18 MCH 29 pg (28-32) 06/16/18 04:18 MCHC 35 % (32-34) H 06/16/18 04:18 RDW 12.7 % (13.2-15.2) L 06/16/18 04:18 Plt Count 350 K/mm3 (140-440) 06/16/18 04:18 Lymph # Director Of Retention 06/11/18 01:31 Add Manual Diff Complete 06/12/18 04:41 Total Counted 100 06/12/18 04:41 Seg Neutrophils % Director Of Retention 06/11/18 04:58 Seg Neuts % (Manual) 95.0 % (40.0-70.0) H 06/12/18 04:41 Band Neutrophils % 0 % 06/12/18 04:41 Lymphocytes % (Manual) 2.0 % (13.4-35.0) L 06/12/18 04:41 Reactive Lymphs % (Man) 0 % 06/12/18 04:41 Monocytes % (Manual) 3.0 % (0.0-7.3) 06/12/18 04:41 Eosinophils % (Manual) 0 % (0.0-4.3) 06/12/18 04:41 Basophils % (Manual) 0 % (0.0-1.8) 06/12/18 04:41 Metamyelocytes % 0 % 06/12/18 04:41 Myelocytes % 0 % 06/12/18 04:41 Promyelocytes % 0 % 06/12/18 04:41 Blast Cells % 0 % 06/12/18 04:41 Nucleated RBC % Not Reportable 06/12/18 04:41 Seg Neutrophils # Man 28.6 K/mm3 (1.8-7.7) H 06/12/18 04:41 Band Neutrophils # 0.0 K/mm3 06/12/18 04:41 Lymphocytes # (Manual) 0.6 K/mm3 (1.2-5.4) L 06/12/18 04:41 Abs React Lymphs (Man) 0.0 K/mm3 06/12/18 04:41 Monocytes # (Manual) 0.9 K/mm3 (0.0-0.8) H 06/12/18 04:41 Eosinophils # (Manual) 0.0 K/mm3 (0.0-0.4) 06/12/18 04:41 Basophils # (Manual) 0.0 K/mm3 (0.0-0.1) 06/12/18 04:41 Metamyelocytes # 0.0 K/mm3 06/12/18 04:41 Myelocytes # 0.0 K/mm3 06/12/18 04:41 Promyelocytes # 0.0 K/mm3 06/12/18 04:41 Blast Cells # 0.0 K/mm3 06/12/18 04:41 WBC Morphology Not Reportable 06/12/18 04:41 Hypersegmented Neuts Not Reportable 06/12/18 04:41 Hyposegmented Neuts Not Reportable 06/12/18 04:41 Hypogranular Neuts Not Reportable 06/12/18 04:41 Smudge Cells Not Reportable 06/12/18 04:41 Toxic Granulation Not Reportable 06/12/18 04:41 Toxic Vacuolation Not Reportable 06/12/18 04:41 Dohle Bodies Not Reportable 06/12/18 04:41 Pelger-Huet Anomaly Not Reportable 06/12/18 04:41 Zander Rods Not Reportable 06/12/18 04:41 Platelet Estimate Consistent w auto 06/12/18 04:41 Clumped Platelets Not Reportable 06/12/18 04:41 Plt Clumps, EDTA Not Reportable 06/12/18 04:41 Large Platelets Not Reportable 06/12/18 04:41 Giant Platelets Not Reportable 06/12/18 04:41 Platelet Satelliting Not Reportable 06/12/18 04:41 Plt Morphology Comment Not Reportable 06/12/18 04:41 RBC Morphology Not Reportable 06/12/18 04:41 Dimorphic RBCs Not Reportable 06/12/18 04:41 Polychromasia Not Reportable 06/12/18 04:41 Hypochromasia Not Reportable 06/12/18 04:41 Poikilocytosis Not Reportable 06/12/18 04:41 Anisocytosis 1+ 06/12/18 04:41 Microcytosis Not Reportable 06/12/18 04:41 Macrocytosis Not Reportable 06/12/18 04:41 Spherocytes Not Reportable 06/12/18 04:41 Pappenheimer Bodies Not Reportable 06/12/18 04:41 Sickle Cells Not Reportable 06/12/18 04:41 Target Cells Not Reportable 06/12/18 04:41 Tear Drop Cells Not Reportable 06/12/18 04:41 Ovalocytes Not Reportable 06/12/18 04:41 Helmet Cells Not Reportable 06/12/18 04:41 [place]endricks Bodies Not Reportable 06/12/18 04:41 [place] Rings Not Reportable 06/12/18 04:41 [place] Cells Not Reportable 06/12/18 04:41 Bite Cells Not Reportable 06/12/18 04:41 Crenated Cell Not Reportable 06/12/18 04:41 Elliptocytes Not Reportable 06/12/18 04:41 Acanthocytes (Spur) Not Reportable 06/12/18 04:41 Rouleaux Not Reportable 06/12/18 04:41 Hemoglobin C Crystals Not Reportable 06/12/18 04:41 Schistocytes Not Reportable 06/12/18 04:41 Malaria parasites Not Reportable 06/12/18 04:41 Joel Bodies Not Reportable 06/12/18 04:41 Hem Pathologist Commnt No 06/12/18 04:41 PT 13.9 Sec. (12.2-14.9) 06/11/18 01:31 INR 1.03 (0.87-1.13) 06/11/18 01:31 APTT 29.2 Sec. (24.2-36.6) 06/11/18 01:31 POC ABG pH 7.475 (7.35-7.45) H 06/13/18 23:46 POC ABG pCO2 28.6 (35-45) L 06/13/18 23:46 POC ABG pO2 49 (80-105) L 06/13/18 23:46 POC ABG HCO3 21.1 06/13/18 23:46 POC ABG Total CO2 22 06/13/18 23:46 POC ABG O2 Sat 87 06/13/18 23:46 POC ABG Base Excess -3 06/13/18 23:46 FiO2 100 % 06/13/18 23:46 Sodium 134 mmol/L (137-145) L 06/16/18 04:18 Potassium 3.0 mmol/L (3.6-5.0) L 06/16/18 04:18 Chloride 94.9 mmol/L (98-107) L 06/16/18 04:18 Carbon Dioxide 27 mmol/L (22-30) 06/16/18 04:18 Anion Gap 15 mmol/L 06/16/18 04:18 BUN 19 mg/dL (9-20) 06/16/18 04:18 Creatinine 1.0 mg/dL (0.8-1.5) 06/16/18 04:18 Estimated GFR > 60 ml/min 06/16/18 04:18 BUN/Creatinine Ratio 19 % 06/16/18 04:18 Glucose 102 mg/dL (75-100) H 06/16/18 04:18 POC Glucose 99 (70-105) 06/16/18 06:10 Hemoglobin A1c 5.9 % (4-6) 06/12/18 04:41 Lactic Acid 3.80 mmol/L (0.7-2.0) H* 06/11/18 17:34 Calcium 8.2 mg/dL (8.4-10.2) L 06/16/18 04:18 Magnesium 2.30 mg/dL (1.7-2.3) 06/16/18 04:18 Total Bilirubin 0.20 mg/dL (0.1-1.2) 06/11/18 01:31 AST 56 units/L (5-40) H 06/11/18 01:31 ALT 58 units/L (7-56) H 06/11/18 01:31 Alkaline Phosphatase 79 units/L (35-129) 06/11/18 01:31 Ammonia 62.0 umol/L (25-60) H 06/11/18 01:31 Total Creatine Kinase 2243 units/L (55-170) H 06/12/18 04:41 CK-MB (CK-2) 207.4 ng/mL (0.0-4.0) H 06/12/18 04:41 CK-MB (CK-2) Rel Index 9.2 (0-4) H 06/12/18 04:41 Troponin T 1.690 ng/mL (0.00-0.029) H* D 06/15/18 12:08 NT-Pro-B Natriuret Pep 1466 pg/mL (0-900) H 06/11/18 01:31 Total Protein 5.9 g/dL (6.3-8.2) L 06/11/18 01:31 Albumin 3.8 g/dL (3.9-5) L 06/11/18 01:31 Albumin/Globulin Ratio 1.8 % 06/11/18 01:31 Triglycerides 41 mg/dL (2-149) 06/11/18 04:58 Cholesterol 140 mg/dL (50-199) 06/11/18 04:58 LDL Cholesterol Direct 103 mg/dL (50-130) 06/11/18 04:58 HDL Cholesterol 41 mg/dL (40-59) 06/11/18 04:58 Cholesterol/HDL Ratio 3.41 % 06/11/18 04:58 TSH 7.520 mlU/mL (0.270-4.200) H 06/11/18 01:31 Thyroxine (T4) 7.1 ug/dL (4.0-12.0) 06/11/18 04:58 Urine Color Yellow (Yellow) 06/11/18 01:31 Urine Turbidity Turbid (Clear) 06/11/18 01:31 Urine pH 6.0 (5.0-7.0) 06/11/18 01:31 Ur Specific [place] 1.027 (1.003-1.030) 06/11/18 01:31 Urine Protein 100 mg/dl mg/dL (Negative) 06/11/18 01:31 Urine Glucose (UA) Negative mg/dL (Negative) 06/11/18 01:31 Urine Ketones Trace mg/dL (Negative) 06/11/18 01:31 Urine Blood Negative (Negative) 06/11/18 01:31 Urine Nitrite Negative (Negative) 06/11/18 01:31 Urine Bilirubin Negative (Negative) 06/11/18 01:31 Urine Urobilinogen < 2.0 mg/dL (<2.0) 06/11/18 01:31 Ur Leukocyte Esterase Trace (Negative) 06/11/18 01:31 Urine WBC (Auto) 11.0 /HPF (0.0-6.0) H 06/11/18 01:31 Urine RBC (Auto) 36.0 /HPF (0.0-6.0) 06/11/18 01:31 Urine Bacteria (Auto) 4+ /HPF (Negative) 06/11/18 01:31 Urine Mucus 3+ /HPF 06/11/18 01:31 Urine Yeast (Budding) 3+ /HPF 06/11/18 01:31 Urine Sperm 3+ /HPF (WATER QUALITY ASSISTANT) 06/11/18 01:31 Urine Opiates Screen Presumptive positive 06/11/18 01:31 Urine Methadone Screen Presumptive negative 06/11/18 01:31 Ur Barbiturates Screen Presumptive negative 06/11/18 01:31 Ur Phencyclidine Scrn Presumptive negative 06/11/18 01:31 Ur Amphetamines Screen Presumptive negative 06/11/18 01:31 U Benzodiazepines Scrn Presumptive negative 06/11/18 01:31 Urine Cocaine Screen Presumptive negative 06/11/18 01:31 U Marijuana (THC) Screen Presumptive negative 06/11/18 01:31 Drugs of Abuse Note Disclamer 06/11/18 01:31 Plasma/Serum Alcohol < 0.01 % (0-0.07) 06/11/18 01:31 Blood Type O NEGATIVE 06/11/18 01:31 Antibody Screen Negative 06/11/18 01:31 Nutrition/Malnutrition Assess - Dietary Evaluation Nutrition/Malnutrition Findings: Nutrition Notes Start: 06/11/18 13:34 Freq: Status: Active Protocol: Document 06/13/18 14:31 RM (Rec: 06/13/18 14:46 RM [email or web address]) Nutrition Notes Initial or Follow up Reassessment Current Diagnoses Sepsis Other Pertinent Diagnosis s/p cardiac arrest, s/p vfib Current Diet Cl liq Labs/Tests Reviewed Medications Reviewed Height 5 ft 8 in Weight 79.379 kg [place] Body Weight (lbs) 154.0 BMI 26.6 Subjective/Other Information Pt stated that he has been drinking water and sprite. Also stated that he is nauseous but has not vomited. Burn Absent Trauma Absent #1 Nutrition Diagnoses Predicted suboptimal energy intake Diagnosis Progress(for reassessment Continues documentation) Is patient on ventilator? No Is Patient Ambulatory and/or Out of Bed No REE-([facility]-confined to bed) 5073.630 Calculation Used for Recommendations [facility] Additional Notes Protein Needs: 64-79g (0.8-1g/ kg) Fluid Needs: 1ml/kcal Nutrition Intervention Change Diet Order: Advance diet when medically able Add Supplement/Snack (indicate name/kcal Ensure Clear Mixed [place] 1 /protein ) daily Goal #1 PO tolerance Goal #2 Diet advancement Anticipated Discharge Needs: Unable to determine at this time Follow-Up By: 06/16/18 Additional Comments Follow for PO intakes, ONS intakes
--- NOTE | 2018-06-16 10:16 | Progress Note ---
Addendum entered and electronically signed by ELIAS DEGROOT MD 06/16/18 17:25: Patient has LifeVest in place, tolerating his cardiac medications, cardiovascula r status is stable. He remains in the hospital due to the development of a pulmonary infection, and the secondary development of profuse diarrhea after intravenous antibiotic therapy. Anticipated discharge after his pulmonary and gastrointestinal issues are resolved. Original Note: Assessment and Plan Cardiac arrest manifested by ventricular fibrillation and ventricular tachycardia. on amiodarone lifevest is in place Acute anterolateral wall ST elevation myocardial infarction s/p PCI of the left anterior descending artery in its mid segment using drug- eluting stents EF 20-30% by echocardiogram Leukocytosis Abdominal pain with N/V positive stool occult Recommendations: Continue medical therapy for VT/VF, ischemic cardiomyopathy and coronary artery disease including DAPT without interruption. Subjective Date of service: 06/16/18 Principal diagnosis: CAD Interval history: Patient denies chest pain and shortness of breath. Objective Vital Signs Temp Pulse Resp BP Pulse Ox 06/16/18 07:25 98.1 F 91 H 20 123/81 97 06/16/18 04:49 97.8 F 92 H 14 127/76 90 06/15/18 23:00 92 H 18 114/72 97 06/15/18 22:45 98.7 F 98 H 16 114/72 96 06/15/18 21:41 105 H 06/15/18 21:39 96 06/15/18 19:28 98.6 F 105 H 14 123/81 94 06/15/18 19:26 103 H 06/15/18 17:12 98.6 F 100 H 16 123/80 97 06/15/18 11:54 102 H 116/88 06/15/18 11:03 97.6 F 102 H 18 116/83 96 - Physical Examination General: No Apparent Distress HEENT: Positive: PERRL Neck: Positive: trachea midline Cardiac: Positive: Reg Rate and Rhythm Lungs: Positive: Decreased Breath Sounds Neuro: Positive: Grossly Intact Incision: Cardiac Cath Site (right groin) Extremities: Absent: edema - Labs and Meds CBC 06/16/18 Range/Units 04:18 WBC 16.6 H (4.5-11.0) K/mm3 RBC 4.37 (3.65-5.03) M/mm3 Hgb 12.6 (11.8-15.2) gm/dl Hct 36.2 (35.5-45.6) % Plt Count 350 (140-440) K/mm3 Comprehensive Metabolic Panel 06/15/18 06/16/18 Range/Units 09:13 04:18 Sodium 134 L (137-145) mmol/L Potassium 2.9 L* 3.0 L (3.6-5.0) mmol/L Chloride 94.9 L (98-107) mmol/L Carbon Dioxide 27 (22-30) mmol/L BUN 19 (9-20) mg/dL Creatinine 1.0 (0.8-1.5) mg/dL Glucose 102 H (75-100) mg/dL Calcium 8.2 L (8.4-10.2) mg/dL - Imaging and Cardiology EKG: image reviewed
[2018-06-16] MEDS: HumaLOG SUB-Q SCH ×4 (10:49→23:00)
--- NOTE | 2018-06-16 11:01 | Progress Note ---
Assessment and Plan Imagin06/11/18 Chest Xray: no consolidations Cultures: 06/11/2018 Blood: no growth to date 06/11/2018 Urine: no growth to date 06/11/2018 Tracheal Aspirate: MSSA A/P: 57-year-old male with no significant medical history, had a syncopal episode in the waiting room, was brought back to the ER, s/p cardiac arrest requiring CPR, shocked x 3 for Ventricular Fibrillation and taken to the [facility] where a stent was placed in the LAD, admitted with: 1. Sepsis: improving, leukocytosis better, no fever. Likely multifactorial - reactive from STEMI/cardiac arrest +/- aspiration pneumonia. 2. Presumed aspiration pneumonia: due to MSSA - repeat CXR showed nonspecific new patchy and interstitial opacity is noted in the right midlung and left mid to lower lung. - Sputum 06/11/2018 +MSSA 3. STEMI / Status post cardiac arrest: Stent placed in LAD. On amiodarone, lifevest is in place. EF 20-30% 4. Acute Respiratory failure: resolved 4. Penicillin Allergy: remote/hives Plan: - continue Vancomycin D3 of 5 - monitor leukocytosis Will follow. Please call with questions. Isaura Harris MD [facility] C: [phone] O: [phone] F: [phone] Subjective Date of service: 06/16/18 Principal diagnosis: CAD Objective - Exam Narrative Exam: Constitutional: Alert, cooperative. mild distress Head, Ears, Nose: Normocephalic, atraumatic. External ears, nose normal Eyes: Conjunctivae/corneas clear. No icterus. No ptosis. Neck: Supple, no meningeal signs Oral: dentition good, no thrush Cardiovascular: S1, S2 normal. Respiratory: Good air entry, clear to auscultation bilaterally GI: Soft, non-tender; bowel sounds normal. No peritoneal signs Musculoskeletal: Minor back pain and muscle spasms Skin: No rash or abscess. Hem/Lymphatic: No palpable cervical or supraclavicular nodes. No lymphangitis Psych: Mood depressed. Affect normal Neurological: Awake, alert, oriented. - Constitutional Vitals: Vital Signs Temp Pulse Resp BP Pulse Ox 98.1 F 91 H 20 123/81 97 06/16/18 07:25 06/16/18 07:25 06/16/18 07:25 06/16/18 07:25 06/16/18 07:25 Temperature -Last 24 Hours Temperature 98.1 F Temperature 97.8 F Temperature 98.7 F Temperature 98.6 F Temperature 98.6 F Temperature 97.6 F - Labs CBC & Chem 7: 06/16/18 04:18 06/16/18 04:18 Labs: Abnormal lab results 06/15/18 06/15/18 06/15/18 Range/Units 11:09 12:08 17:13 WBC (4.5-11.0) K/mm3 MCV (84-94) fl MCHC (32-34) % RDW (13.2-15.2) % Sodium (137-145) mmol/L Potassium (3.6-5.0) mmol/L Chloride (98-107) mmol/L Glucose (75-100) mg/dL POC Glucose 116 H 107 H (70-105) Calcium (8.4-10.2) mg/dL Troponin T 1.690 H* D (0.00-0.029) ng/mL 06/15/18 06/16/18 06/16/18 Range/Units 20:54 04:18 04:18 WBC 16.6 H (4.5-11.0) K/mm3 MCV 83 L (84-94) fl MCHC 35 H (32-34) % RDW 12.7 L (13.2-15.2) % Sodium 134 L (137-145) mmol/L Potassium 3.0 L (3.6-5.0) mmol/L Chloride 94.9 L (98-107) mmol/L Glucose 102 H (75-100) mg/dL POC Glucose 127 H (70-105) Calcium 8.2 L (8.4-10.2) mg/dL Troponin T (0.00-0.029) ng/mL
--- NOTE | 2018-06-16 12:09 | Cat Scan Report ---
CT ABDOMEN PELVIS WITHOUT CONTRAST: HISTORY: Abdominal pain, nausea and vomiting, abdominal distention. COMPARISON: none. TECHNIQUE: Helical CT in 1.25mm intervals without IV contrast. Sagittal and coronal reconstructions. FINDINGS: Lung bases: Moderate bilateral layering pleural effusions are identified. There is mild compressive atelectasis of the lower lobes. Heart size is normal. Liver: Normal. Biliary system: Normal. Pancreas: Normal. Spleen: Normal. Kidneys/ureters/bladder: Normal. Adrenal glands: Normal. Aorta: Normal. Intestines: Normal. Appendix: Normal. Pelvic viscera: Normal. Ascites: None. Adenopathy: None. Musculoskeletal: Normal. IMPRESSION: Unremarkable CT scan of the abdomen and pelvis without contrast. Bilateral pleural effusions.
--- NOTE | 2018-06-16 12:54 | Gastroenterology Consultation ---
Addendum entered and electronically signed by ANNE WAYNE MD 06/16/18 17:37: I have personally interviewed and examined the patient. Feels much better this afternoon, without N/V/abdominal cramps on clear liquids. Would like to try solids, so will advance diet. Continue current care otherwise. CT to assess for colitis/ischemia from atheromatous emboli. Original Note: History of Present Illness - Reason for Consult Consult date: 06/16/18 colitis? Requesting physician: JOSELITO CORTEZ - History of Present Illness Patient is a 57 y/o male with no significant medical history who presented to ED with c/o chest pain. He collapsed in triage and was found to be in Vfib arrest. He was taken emergently to the [facility] lab [facility] and found to have 100% LAD occlusion which was stented. Currently being treated for STEMI/s/p cardiac arrest (EF 20- 30%; on amiodarone/plavix/ASA and lifevest in place), acute respiratory failure (extubated 06/11/17; resolved), and sepsis 2/2 aspiration pneumonia (on vancomycin) +/- reactive from STEMI/cardiac arrest. ID and cardiology following. GI has been consulted for possible colitis (ischemia?). This afternoon patient was resting in bed w/o acute distress. He reports generalized abd pain/distention with associated N/V and diarrhea for the past couple of days. States abd pain/distention and N/V are now improved but has continued diarrhea with watery non-bloody stool. BMs x approximately 10 in past 12 hours (baseline 2x/day). Admits to some heartburn but denies fever, CP, SOB, wt loss, hemateme sis, melena, dysphagia, constipation, or hematochezia. Takes excedrin at home frequently for headaches. No hx of IBD or PUD. No previous EGD. Last colonoscopy at the age of 50 for screening with results normal except hemorrhoids per pt report. Past History Past Medical History: acute HI, CAD Past Surgical History: Other (s/p PCI of LAD) Social history: denies: smoking, alcohol abuse Family history: no significant family history Medications and Allergies Allergies Allergy/AdvReac Type Severity Reaction Status Date / Time bupropion [From Wellbutrin] Allergy Unknown Verified 06/11/18 01:35 Penicillins Allergy Hives Verified 06/11/18 01:35 [id number]-[id number]-Jmt Reductase Allergy Unknown Verified 06/11/18 01:35 Inhibitor Home Medications Medication Instructions Recorded Confirmed Last Taken Type Xiidra OU BID 06/12/18 Unknown History Active Meds: Active Medications Acetaminophen (Tylenol) 650 mg PO Q6H PRN PRN Reason: Pain, Mild (1-3) Last Admin: 06/15/18 21:57 Dose: 650 mg Documented by: Amiodarone HCl (Cordarone) 200 mg PO BID [facility] Last Admin: 06/15/18 21:41 Dose: 200 mg Documented by: Aspirin (Halfprin Ec) 81 mg PO QDAY [facility] Atorvastatin Calcium (Lipitor) 40 mg PO QHS [facility] Last Admin: 06/15/18 21:41 Dose: 40 mg Documented by: Clopidogrel Bisulfate (Plavix) 75 mg PO QDAY [facility] Last Admin: 06/15/18 11:10 Dose: 75 mg Documented by: Dextrose (D50w (25gm) Syringe) 50 ml IV PRN PRN PRN Reason: Hypoglycemia Diphenhydramine HCl (Benadryl) 25 mg IV Q6H PRN PRN Reason: Itching Enoxaparin Sodium (Lovenox) 40 mg SUB-Q QDAY [facility] Last Admin: 06/15/18 11:10 Dose: 40 mg Documented by: Hydrophilic Ointment (Vaseline Lip Therapy) 1 applic TP Q2HR PRN PRN Reason: Dry Lips Vancomycin HCl 1,250 mg/ (Sodium Chloride) 275 mls @ 166.667 mls/hr IV Q12H [facility] Last Admin: 06/16/18 06:23 Dose: 166.667 mls/hr Documented by: Insulin Human Lispro (Humalog) 0 unit SUB-Q [facility]; Protocol Last Admin: 06/16/18 10:49 Dose: Not Given Documented by: Isosorbide Mononitrate (Imdur) 30 mg PO QDAY [facility] Last Admin: 06/15/18 11:54 Dose: 30 mg Documented by: Lisinopril (Zestril) 2.5 mg PO QDAY [facility] Last Admin: 06/15/18 11:54 Dose: Not Given Documented by: Metoprolol Tartrate (Lopressor) 100 mg PO BID [facility] Last Admin: 06/15/18 21:41 Dose: 100 mg Documented by: Multi-Ingred Cream/Lotion/Oil/Oint (Artificial Tears Ophth Oint) 1 applic OU Q4HR PRN PRN Reason: Dry Eye(s) Ondansetron HCl (Zofran) 4 mg IV Q8H PRN PRN Reason: Nausea And Vomiting Last Admin: 06/15/18 23:11 Dose: 4 mg Documented by: Zolpidem Tartrate (Ambien) 5 mg PO QHS PRN PRN Reason: Sleep Last Admin: 06/15/18 00:19 Dose: 5 mg Documented by: medications reviewed/updated as required Review of Systems - Review of Systems All systems: negative Gastrointestinal: abdominal pain, nausea, vomiting, diarrhea Exam - Constitutional Vital Signs: Temp Pulse Resp BP Pulse Ox 98.1 F 91 H 20 123/81 97 06/16/18 07:25 06/16/18 07:25 06/16/18 07:25 06/16/18 07:25 06/16/18 12:29 General appearance: no acute distress - EENT Eyes: PERRL, EOM intact ENT: hearing intact - Respiratory Respiratory: bilateral: CTA (anterior) - Cardiovascular Rhythm: other (lifevest in place) - Gastrointestinal General gastrointestinal: Present: soft, non-tender, non-distended, normal bowel sounds - Neurologic Neurological: alert and oriented x3 - Labs CBC & Chem 7: 06/16/18 04:18 06/16/18 04:18 Lab Results: Laboratory Results - last 24 hr 06/15/18 06/15/18 06/15/18 11:09 12:08 17:13 WBC RBC Hgb Hct MCV MCH MCHC RDW Plt Count Sodium Potassium Chloride Carbon Dioxide Anion Gap BUN Creatinine Estimated GFR BUN/Creatinine Ratio Glucose POC Glucose 116 H 107 H Calcium Magnesium Troponin T 1.690 H* D 06/15/18 06/16/18 06/16/18 20:54 04:18 04:18 WBC 16.6 H RBC 4.37 Hgb 12.6 Hct 36.2 MCV 83 L MCH 29 MCHC 35 H RDW 12.7 L Plt Count 350 Sodium 134 L Potassium 3.0 L Chloride 94.9 L Carbon Dioxide 27 Anion Gap 15 BUN 19 Creatinine 1.0 Estimated GFR > 60 BUN/Creatinine Ratio 19 Glucose 102 H POC Glucose 127 H Calcium 8.2 L Magnesium 2.30 Troponin T 06/16/18 06/16/18 06:10 10:57 WBC RBC Hgb Hct MCV MCH MCHC RDW Plt Count Sodium Potassium Chloride Carbon Dioxide Anion Gap BUN Creatinine Estimated GFR BUN/Creatinine Ratio Glucose POC Glucose 99 91 Calcium Magnesium Troponin T Assessment and Plan 1.abd pain/distention 2.N/V 3.diarrhea -afebrile -WBC 16.6-trending down -H/H WNL (12.6/36.2)-stable; no active signs of bleeding -abd CT showed bilateral pleural effusions but otherwise unremarkable -etiology unclear-likely antibiotic induced vs other -clinically, patient reports feeling better today with abd pain/distention and N/V improved but c/o continued non-bloody diarrhea (BMs x 10 over past 12 hours). -no plans for scope -will order stool for WBC, culture, and C-diff -start on probiotic and PPI -okay for clear liquids-advance diet as tolerated -continue supportive care -electrolyte management per primary team -further recommendations to follow 4.STEMI/s/p cardiac arrest- s/p PCI of LAD- cardiology following 5.sepsis 2/2 aspiration pneumonia (on vanco per ID)
[2018-06-16] MEDS: PLAVIX PO SCH (14:27)
[2018-06-16] MEDS: IMDUR PO SCH (14:29)
[2018-06-16] MEDS: CORDARONE PO SCH ×2 (14:29→21:22)
[2018-06-16] MEDS: HALFPRIN EC PO SCH (14:29)
[2018-06-16] MEDS: LOPRESSOR PO SCH ×2 (14:30→22:45)
[2018-06-16] MEDS: ZESTRIL PO SCH (14:31)
[2018-06-16] MEDS: LOVENOX SUB-Q SCH (14:37)
[2018-06-16] MEDS: ZOFRAN IV PRN (14:52)
[2018-06-16] MEDS: PROTONIX IV SCH (16:55)
[2018-06-16] MEDS ORDERED: K-DUR PO ONE (20:00)
[2018-06-16] MEDS: LACTINEX PO SCH (21:22)
[2018-06-17] MEDS: AMBIEN PO PRN (00:03)
[2018-06-17 05:58] LABS: Hematocrit 33.1 % (35.5-45.6); Hemoglobin 11.5 gm/dl (11.8-15.2); Mean Corpuscular HGB Conc 35 % (32-34); Mean Corpuscular Volume 83 fl (84-94); Platelet Count 299 K/mm3 (140-440); Red Blood Count 4.01 M/mm3 (3.65-5.03); Red Cell Distribution Width 12.9 % (13.2-15.2)
[2018-06-17 06:16] LABS: BUN/Creatinine Ratio 15; Blood Urea Nitrogen 15 mg/dL (9-20); Hemolysis Index 4
[2018-06-17] MEDS: VANCOMYCIN 1,250 MG in NACL 0.9% 250ML 250 ML IV SCH ×2 (06:19→17:00)
[2018-06-17] MEDS: HumaLOG SUB-Q SCH ×4 (08:04→22:49)
[2018-06-17] MEDS ORDERED: PROTONIX IV SCH (10:00)
--- NOTE | 2018-06-17 10:06 | Progress Note ---
Assessment and Plan Imagin06/11/18 Chest Xray: no consolidations Cultures: 06/11/2018 Blood: no growth to date 06/11/2018 Urine: no growth to date 06/11/2018 Tracheal Aspirate: MSSA A/P: 57-year-old male with no significant medical history, had a syncopal episode in the waiting room, was brought back to the ER, s/p cardiac arrest requiring CPR, shocked x 3 for Ventricular Fibrillation and taken to the [facility] where a stent was placed in the LAD, admitted with: 1. Sepsis: improving, leukocytosis better from 30-->12K, no fever. Likely multifactorial - reactive from STEMI/cardiac arrest +/- aspiration pneumonia. 2. Presumed aspiration pneumonia: due to MSSA - repeat CXR showed nonspecific new patchy and interstitial opacity is noted in the right midlung and left mid to lower lung. - Sputum 06/11/2018 +MSSA 3. STEMI / Status post cardiac arrest: Stent placed in LAD. On amiodarone, lifevest is in place. EF 20-30% 4. Acute Respiratory failure: resolved 5. Penicillin Allergy: remote/hives 6. Diarrhea: unclear etiology - clinically improving, CT abdomen showed no colitis. Prob from antibiotics. Plan: - continue Vancomycin D4 of 5 - monitor leukocytosis and diarrhea, both improving - GI ordered Cdiff Will follow. Please call with questions. Isaura Harris MD [facility] C: [phone] O: [phone] F: [phone] Subjective Date of service: 06/17/18 Principal diagnosis: CAD Interval history: Patient reports feeling much better, bloating and diarrhea has improved. He had about 10 BMs yesterday but none today. No fever. Objective - Exam Narrative Exam: Constitutional: Alert, cooperative. in NAD wearing a lifevest Head, Ears, Nose: Normocephalic, atraumatic. External ears, nose normal Eyes: Conjunctivae/corneas clear. No icterus. No ptosis. Neck: Supple, no meningeal signs Oral: dentition good, no thrush Cardiovascular: RRR Respiratory: Good air entry, clear to auscultation bilaterally GI: Soft, non-tender; bowel sounds normal. No peritoneal signs Musculoskeletal: Minor back pain and muscle spasms Skin: No rash or abscess. Hem/Lymphatic: No palpable cervical or supraclavicular nodes. No lymphangitis Psych: Mood depressed. Affect normal Neurological: Awake, alert, oriented. - Constitutional Vitals: Vital Signs Temp Pulse Resp BP Pulse Ox 98.5 F 96 H 20 122/81 94 06/17/18 07:23 06/17/18 07:23 06/17/18 07:23 06/17/18 07:23 06/17/18 07:34 Temperature -Last 24 Hours Temperature 98.5 F Temperature 97.3 F Temperature 98.9 F Temperature 98.9 F Temperature 98.0 F Temperature 98.0 F - Labs CBC & Chem 7: 06/17/18 04:55 06/17/18 04:55 Labs: Abnormal lab results 06/16/18 06/17/18 06/17/18 Range/Units 20:52 04:55 04:55 WBC 12.0 H (4.5-11.0) K/mm3 Hgb 11.5 L (11.8-15.2) gm/dl Hct 33.1 L (35.5-45.6) % MCV 83 L (84-94) fl MCHC 35 H (32-34) % RDW 12.9 L (13.2-15.2) % Sodium 135 L (137-145) mmol/L Potassium 3.2 L (3.6-5.0) mmol/L POC Glucose 123 H (70-105) Calcium 8.0 L (8.4-10.2) mg/dL
[2018-06-17] MEDS: ZESTRIL PO SCH (10:12)
[2018-06-17] MEDS: HALFPRIN EC PO SCH (10:12)
[2018-06-17] MEDS: IMDUR PO SCH (10:12)
[2018-06-17] MEDS: PLAVIX PO SCH (10:13)
[2018-06-17] MEDS: LOPRESSOR PO SCH ×2 (10:13→21:39)
[2018-06-17] MEDS: LOVENOX SUB-Q SCH (10:13)
[2018-06-17] MEDS: LACTINEX PO SCH ×2 (10:13→21:36)
[2018-06-17] MEDS: PROTONIX IV SCH (10:14)
[2018-06-17] MEDS: CORDARONE PO SCH ×2 (10:18→21:37)
--- NOTE | 2018-06-17 11:02 | Progress Note ---
Addendum entered and electronically signed by ELIAS DEGROOT MD 06/17/18 14:04: Medical therapy for coronary artery disease, acute ST elevation myocardial infarction and ischemic cardiomyopathy. Patient is on lifevest monitoring for presenting ventricular fibrillation arrest. Original Note: Assessment and Plan Cardiac arrest manifested by ventricular fibrillation and ventricular tachycardia. on amiodarone lifevest is in place Acute anterolateral wall ST elevation myocardial infarction s/p PCI of the left anterior descending artery in its mid segment using drug- eluting stents EF 20-30% by echocardiogram Leukocytosis Abdominal pain with N/V -resolved Presumed aspiration pneumonia: due to MSSA - repeat CXR showed nonspecific new patchy and interstitial opacity is noted in the right mid nirav and left mid to lower lung. Recommendations: Continue medical therapy for VT/VF, ischemic cardiomyopathy and coronary artery disease including DAPT without interruption. Subjective Date of service: 06/17/18 Principal diagnosis: CAD Interval history: Patient is feeling better. He denies chest pain and shortness of breath. Objective Vital Signs Temp Pulse Resp Resp Resp BP Pulse Ox 06/17/18 10:13 104 H 140/92 06/17/18 10:12 104 H 140/92 06/17/18 07:34 94 06/17/18 07:23 98.5 F 96 H 20 122/81 94 06/17/18 04:22 97.3 F L 95 H 16 123/81 96 06/16/18 23:39 98.9 F 16 118/76 06/16/18 22:00 17 17 06/16/18 21:14 96 06/16/18 19:36 98.9 F 92 H 16 114/76 93 06/16/18 16:31 98.0 F 88 20 120/86 96 06/16/18 14:31 104 H 142/85 06/16/18 14:30 104 H 142/85 06/16/18 14:29 96 H 142/85 06/16/18 12:29 97 - Physical Examination General: No Apparent Distress HEENT: Positive: PERRL Neck: Positive: trachea midline Cardiac: Positive: Reg Rate and Rhythm Lungs: Positive: Decreased Breath Sounds Neuro: Positive: Grossly Intact Incision: Cardiac Cath Site (right groin) Extremities: Absent: edema - Labs and Meds CBC 06/17/18 Range/Units 04:55 WBC 12.0 H (4.5-11.0) K/mm3 RBC 4.01 (3.65-5.03) M/mm3 Hgb 11.5 L (11.8-15.2) gm/dl Hct 33.1 L (35.5-45.6) % Plt Count 299 (140-440) K/mm3 Comprehensive Metabolic Panel 06/17/18 Range/Units 04:55 Sodium 135 L (137-145) mmol/L Potassium 3.2 L (3.6-5.0) mmol/L Chloride 99.2 (98-107) mmol/L Carbon Dioxide 23 (22-30) mmol/L BUN 15 (9-20) mg/dL Creatinine 1.0 (0.8-1.5) mg/dL Glucose 87 (75-100) mg/dL Calcium 8.0 L (8.4-10.2) mg/dL
--- NOTE | 2018-06-17 12:58 | Gastroenterology Progress Note ---
Addendum entered and electronically signed by ANNE WAYNE MD 06/17/18 19:01: I have personally interviewed and examined the patient. I agree with the above A/P. Clinically improved, and the patient's GI complaints have resolved. Will sign off; please call if needed. Original Note: Assessment and Plan 1.abd pain/distention 2.N/V 3.diarrhea -afebrile -WBC 12.0-trending down -stool studies ordered -abd CT showed bilateral pleural effusions but otherwise unremarkable -etiology unclear-likely antibiotic induced vs other -clinically, patient reports feeling better with abd pain/distention, N/V, and diarrhea now resolved. Tolerating soft diet. -no plans for scope -continue probiotic and PPI -okay to advance diet -continue supportive care -patient okay to be d/c per GI standpoint with follow up in clinic in 2-3 weeks based on progress -will sign off, please call if needed 4.STEMI/s/p cardiac arrest- s/p PCI of LAD- cardiology following 5.sepsis 2/2 aspiration pneumonia (on vanco per ID) Subjective Date of service: 06/17/18 Principal diagnosis: abd pain, N/V, diarrhea Interval history: Patient reports feeling better today with abd pain/distention, N/V, and diarrhea now resolved. Tolerating diet. Objective - Constitutional Vitals: Temp Pulse Resp BP Pulse Ox 98.8 F 96 H 20 122/71 95 06/17/18 11:10 06/17/18 11:10 06/17/18 11:10 06/17/18 11:10 06/17/18 11:10 General appearance: no acute distress - Respiratory Respiratory: bilateral: CTA (anterior) - Cardiovascular Rhythm: other (livevest) - Gastrointestinal General gastrointestinal: Present: soft, non-tender, non-distended, normal bowel sounds - Neurologic Neurological: alert and oriented x3 - Labs CBC & Chem 7: 06/17/18 04:55 06/17/18 04:55 Labs: Laboratory Results - last 24 hr 06/16/18 06/16/18 06/17/18 16:35 20:52 04:55 WBC 12.0 H RBC 4.01 Hgb 11.5 L Hct 33.1 L MCV 83 L MCH 29 MCHC 35 H RDW 12.9 L Plt Count 299 Sodium Potassium Chloride Carbon Dioxide Anion Gap BUN Creatinine Estimated GFR BUN/Creatinine Ratio Glucose POC Glucose 93 123 H Calcium Magnesium 06/17/18 06/17/18 06/17/18 04:55 05:32 11:09 WBC RBC Hgb Hct MCV MCH MCHC RDW Plt Count Sodium 135 L Potassium 3.2 L Chloride 99.2 Carbon Dioxide 23 Anion Gap 16 BUN 15 Creatinine 1.0 Estimated GFR > 60 BUN/Creatinine Ratio 15 Glucose 87 POC Glucose 96 129 H Calcium 8.0 L Magnesium 2.20
--- NOTE | 2018-06-17 13:28 | Progress Note ---
Assessment and Plan Assessment and plan: Patient is 57 yo man without chronic medical problems who presented to [facility] ED with Chest pains. While he was in the waiting room, he had a syncopal episode. He was brought back into the emergency room where he had cardiac arrest and CPR was started. Patient was shocked 3 for V. fib, he was taken emergently to the laboratory [facility] where a stent was placed in the LAD. Imagin06/11/18 Chest Xray: no consolidations Cultures: 06/11/2018 Blood: no growth to date 06/11/2018 Urine: no growth to date 06/11/2018 Tracheal Aspirate: Staph aureus STEMI with cardiac stent to LAD: Cardiology is following, still on IV ntg drip Acute respiratory failure, s/p Intubation and now extubated 06/11/17: wean o2 as appropriate Acute combined heart failure, poa: may benefit from lasix, will defer to Cardiology Cardiac arrest, with successful resuscitation Continous right sided CP, possible related to defibrillation/chest compression; continue pain management, d/w Dr. iMles suspect Caron and start NSAIDS SIRS with organ dysfunction vs Sepsis will stop abx and monitor, urine culture pending, consulted ID, WBC increasing Staph aureus in trach aspirate, pending identity and sensitivities==>MSSA pneumo arvin on iv Vancomycin Status post V. fib cardiac arrest with estimated EF 20-30%: LifeVest being applied today Hypokalemia resolved: monitor bmp closely Cardiogenic syncope Last day for iv vancomycin, possible d/c tomorrow. History Interval history: Patient was seen and examined. Follow-up on current diagnosis of STEMI. He has burning epigastric pains which developed with the n/v/d yesterday which has resolved. The diarrhea has resolved; therefore, he hasn't given a sample for the cdiffe ordered by GI. He wants to go home. Hospitalist Physical - Physical exam Narrative exam: Gen: ill appearing dry heaving, NAD, Awake, Alert, Orientated x 3 HEENT: NCAT, EOMI, PERRL, OP Clear Neck: supple, no adenopathy, no thyromegaly, + JVD CVS/Heart: RRR, normal S1S2, pulses present bilaterally Chest/Lungs: diminished bs bilateral but improved, Symmetrical chest expansion, good air entry bilaterally GI/Abdomen: soft, diffuse tender, distended good bowel sounds, no guarding or rebound /Bladder: no suprapubic tenderness, no CVA or paraspinal tenderness Extermity/Skin: no c/c/e, no obvious rash MSK: FROM x 4 Neuro: CN 2-12 grossly intact, no new focal deficits Psych: calm - Constitutional Vitals: Temp Pulse Resp BP Pulse Ox 98.8 F 96 H 20 122/71 95 06/17/18 11:10 06/17/18 11:10 06/17/18 11:10 06/17/18 11:10 06/17/18 11:10 General appearance: Present: no acute distress, well-nourished Results - Labs CBC & Chem 7: 06/17/18 04:55 06/17/18 04:55 Labs: Laboratory Last Values WBC 12.0 K/mm3 (4.5-11.0) H 06/17/18 04:55 RBC 4.01 M/mm3 (3.65-5.03) 06/17/18 04:55 Hgb 11.5 gm/dl (11.8-15.2) L 06/17/18 04:55 Hct 33.1 % (35.5-45.6) L 06/17/18 04:55 MCV 83 fl (84-94) L 06/17/18 04:55 MCH 29 pg (28-32) 06/17/18 04:55 MCHC 35 % (32-34) H 06/17/18 04:55 RDW 12.9 % (13.2-15.2) L 06/17/18 04:55 Plt Count 299 K/mm3 (140-440) 06/17/18 04:55 Lymph # Senior Data Analyst 06/11/18 01:31 Add Manual Diff Complete 06/12/18 04:41 Total Counted 100 06/12/18 04:41 Seg Neutrophils % Senior Data Analyst 06/11/18 04:58 Seg Neuts % (Manual) 95.0 % (40.0-70.0) H 06/12/18 04:41 Band Neutrophils % 0 % 06/12/18 04:41 Lymphocytes % (Manual) 2.0 % (13.4-35.0) L 06/12/18 04:41 Reactive Lymphs % (Man) 0 % 06/12/18 04:41 Monocytes % (Manual) 3.0 % (0.0-7.3) 06/12/18 04:41 Eosinophils % (Manual) 0 % (0.0-4.3) 06/12/18 04:41 Basophils % (Manual) 0 % (0.0-1.8) 06/12/18 04:41 Metamyelocytes % 0 % 06/12/18 04:41 Myelocytes % 0 % 06/12/18 04:41 Promyelocytes % 0 % 06/12/18 04:41 Blast Cells % 0 % 06/12/18 04:41 Nucleated RBC % Not Reportable 06/12/18 04:41 Seg Neutrophils # Man 28.6 K/mm3 (1.8-7.7) H 06/12/18 04:41 Band Neutrophils # 0.0 K/mm3 06/12/18 04:41 Lymphocytes # (Manual) 0.6 K/mm3 (1.2-5.4) L 06/12/18 04:41 Abs React Lymphs (Man) 0.0 K/mm3 06/12/18 04:41 Monocytes # (Manual) 0.9 K/mm3 (0.0-0.8) H 06/12/18 04:41 Eosinophils # (Manual) 0.0 K/mm3 (0.0-0.4) 06/12/18 04:41 Basophils # (Manual) 0.0 K/mm3 (0.0-0.1) 06/12/18 04:41 Metamyelocytes # 0.0 K/mm3 06/12/18 04:41 Myelocytes # 0.0 K/mm3 06/12/18 04:41 Promyelocytes # 0.0 K/mm3 06/12/18 04:41 Blast Cells # 0.0 K/mm3 06/12/18 04:41 WBC Morphology Not Reportable 06/12/18 04:41 Hypersegmented Neuts Not Reportable 06/12/18 04:41 Hyposegmented Neuts Not Reportable 06/12/18 04:41 Hypogranular Neuts Not Reportable 06/12/18 04:41 Smudge Cells Not Reportable 06/12/18 04:41 Toxic Granulation Not Reportable 06/12/18 04:41 Toxic Vacuolation Not Reportable 06/12/18 04:41 Dohle Bodies Not Reportable 06/12/18 04:41 Pelger-Huet Anomaly Not Reportable 06/12/18 04:41 Zander Rods Not Reportable 06/12/18 04:41 Platelet Estimate Consistent w auto 06/12/18 04:41 Clumped Platelets Not Reportable 06/12/18 04:41 Plt Clumps, EDTA Not Reportable 06/12/18 04:41 Large Platelets Not Reportable 06/12/18 04:41 Giant Platelets Not Reportable 06/12/18 04:41 Platelet Satelliting Not Reportable 06/12/18 04:41 Plt Morphology Comment Not Reportable 06/12/18 04:41 RBC Morphology Not Reportable 06/12/18 04:41 Dimorphic RBCs Not Reportable 06/12/18 04:41 Polychromasia Not Reportable 06/12/18 04:41 Hypochromasia Not Reportable 06/12/18 04:41 Poikilocytosis Not Reportable 06/12/18 04:41 Anisocytosis 1+ 06/12/18 04:41 Microcytosis Not Reportable 06/12/18 04:41 Macrocytosis Not Reportable 06/12/18 04:41 Spherocytes Not Reportable 06/12/18 04:41 Pappenheimer Bodies Not Reportable 06/12/18 04:41 Sickle Cells Not Reportable 06/12/18 04:41 Target Cells Not Reportable 06/12/18 04:41 Tear Drop Cells Not Reportable 06/12/18 04:41 Ovalocytes Not Reportable 06/12/18 04:41 Helmet Cells Not Reportable 06/12/18 04:41 Zurita-Broussard Bodies Not Reportable 06/12/18 04:41 Hesperus Rings Not Reportable 06/12/18 04:41 Yenny Cells Not Reportable 06/12/18 04:41 Bite Cells Not Reportable 06/12/18 04:41 Crenated Cell Not Reportable 06/12/18 04:41 Elliptocytes Not Reportable 06/12/18 04:41 Acanthocytes (Spur) Not Reportable 06/12/18 04:41 Rouleaux Not Reportable 06/12/18 04:41 Hemoglobin C Crystals Not Reportable 06/12/18 04:41 Schistocytes Not Reportable 06/12/18 04:41 Malaria parasites Not Reportable 06/12/18 04:41 Joel Bodies Not Reportable 06/12/18 04:41 Hem Pathologist Commnt No 06/12/18 04:41 PT 13.9 Sec. (12.2-14.9) 06/11/18 01:31 INR 1.03 (0.87-1.13) 06/11/18 01:31 APTT 29.2 Sec. (24.2-36.6) 06/11/18 01:31 POC ABG pH 7.475 (7.35-7.45) H 06/13/18 23:46 POC ABG pCO2 28.6 (35-45) L 06/13/18 23:46 POC ABG pO2 49 (80-105) L 06/13/18 23:46 POC ABG HCO3 21.1 06/13/18 23:46 POC ABG Total CO2 22 06/13/18 23:46 POC ABG O2 Sat 87 06/13/18 23:46 POC ABG Base Excess -3 06/13/18 23:46 FiO2 100 % 06/13/18 23:46 Sodium 135 mmol/L (137-145) L 06/17/18 04:55 Potassium 3.2 mmol/L (3.6-5.0) L 06/17/18 04:55 Chloride 99.2 mmol/L (98-107) 06/17/18 04:55 Carbon Dioxide 23 mmol/L (22-30) 06/17/18 04:55 Anion Gap 16 mmol/L 06/17/18 04:55 BUN 15 mg/dL (9-20) 06/17/18 04:55 Creatinine 1.0 mg/dL (0.8-1.5) 06/17/18 04:55 Estimated GFR > 60 ml/min 06/17/18 04:55 BUN/Creatinine Ratio 15 % 06/17/18 04:55 Glucose 87 mg/dL (75-100) 06/17/18 04:55 POC Glucose 129 (70-105) H 06/17/18 11:09 Hemoglobin A1c 5.9 % (4-6) 06/12/18 04:41 Lactic Acid 3.80 mmol/L (0.7-2.0) H* 06/11/18 17:34 Calcium 8.0 mg/dL (8.4-10.2) L 06/17/18 04:55 Magnesium 2.20 mg/dL (1.7-2.3) 06/17/18 04:55 Total Bilirubin 0.20 mg/dL (0.1-1.2) 06/11/18 01:31 AST 56 units/L (5-40) H 06/11/18 01:31 ALT 58 units/L (7-56) H 06/11/18 01:31 Alkaline Phosphatase 79 units/L (35-129) 06/11/18 01:31 Ammonia 62.0 umol/L (25-60) H 06/11/18 01:31 Total Creatine Kinase 2243 units/L (55-170) H 06/12/18 04:41 CK-MB (CK-2) 207.4 ng/mL (0.0-4.0) H 06/12/18 04:41 CK-MB (CK-2) Rel Index 9.2 (0-4) H 06/12/18 04:41 Troponin T 1.690 ng/mL (0.00-0.029) H* D 06/15/18 12:08 NT-Pro-B Natriuret Pep 1466 pg/mL (0-900) H 06/11/18 01:31 Total Protein 5.9 g/dL (6.3-8.2) L 06/11/18 01:31 Albumin 3.8 g/dL (3.9-5) L 06/11/18 01:31 Albumin/Globulin Ratio 1.8 % 06/11/18 01:31 Triglycerides 41 mg/dL (2-149) 06/11/18 04:58 Cholesterol 140 mg/dL (50-199) 06/11/18 04:58 LDL Cholesterol Direct 103 mg/dL (50-130) 06/11/18 04:58 HDL Cholesterol 41 mg/dL (40-59) 06/11/18 04:58 Cholesterol/HDL Ratio 3.41 % 06/11/18 04:58 TSH 7.520 mlU/mL (0.270-4.200) H 06/11/18 01:31 Thyroxine (T4) 7.1 ug/dL (4.0-12.0) 06/11/18 04:58 Urine Color Yellow (Yellow) 06/11/18 01:31 Urine Turbidity Turbid (Clear) 06/11/18 01:31 Urine pH 6.0 (5.0-7.0) 06/11/18 01:31 Ur Specific [place] 1.027 (1.003-1.030) 06/11/18 01:31 Urine Protein 100 mg/dl mg/dL (Negative) 06/11/18 01:31 Urine Glucose (UA) Negative mg/dL (Negative) 06/11/18 01:31 Urine Ketones Trace mg/dL (Negative) 06/11/18 01:31 Urine Blood Negative (Negative) 06/11/18 01:31 Urine Nitrite Negative (Negative) 06/11/18 01:31 Urine Bilirubin Negative (Negative) 06/11/18 01:31 Urine Urobilinogen < 2.0 mg/dL (<2.0) 06/11/18 01:31 Ur Leukocyte Esterase Trace (Negative) 06/11/18 01:31 Urine WBC (Auto) 11.0 /HPF (0.0-6.0) H 06/11/18 01:31 Urine RBC (Auto) 36.0 /HPF (0.0-6.0) 06/11/18 01:31 Urine Bacteria (Auto) 4+ /HPF (Negative) 06/11/18 01:31 Urine Mucus 3+ /HPF 06/11/18 01:31 Urine Yeast (Budding) 3+ /HPF 06/11/18 01:31 Urine Sperm 3+ /HPF ([employer] MACHINE) 06/11/18 01:31 Urine Opiates Screen Presumptive positive 06/11/18 01:31 Urine Methadone Screen Presumptive negative 06/11/18 01:31 Ur Barbiturates Screen Presumptive negative 06/11/18 01:31 Ur Phencyclidine Scrn Presumptive negative 06/11/18 01:31 Ur Amphetamines Screen Presumptive negative 06/11/18 01:31 U Benzodiazepines Scrn Presumptive negative 06/11/18 01:31 Urine Cocaine Screen Presumptive negative 06/11/18 01:31 U Marijuana (THC) Screen Presumptive negative 06/11/18 01:31 Drugs of Abuse Note Disclamer 06/11/18 01:31 Plasma/Serum Alcohol < 0.01 % (0-0.07) 06/11/18 01:31 Blood Type O NEGATIVE 06/11/18 01:31 Antibody Screen Negative 06/11/18 01:31 Nutrition/Malnutrition Assess - Dietary Evaluation Nutrition/Malnutrition Findings: Nutrition Notes Start: 06/11/18 13:34 Freq: Status: Active Protocol: Document 06/16/18 15:12 OH (Rec: 06/16/18 15:19 OH [id number]) Nutrition Notes Initial or Follow up Reassessment Other Pertinent Diagnosis s/p cardiac arrest, s/p vfib Labs/Tests [id number] 5.9 Alb 3.8 Na 134 K+ 3.0 glu 99 Medications Lopressor Humalog Plavix Height 5 ft 8 in Weight 80.9 kg [place] Body Weight (lbs) 154.0 BMI 27.1 Subjective/Other Information f/u: Pt. sitting up in bed. Pt . just returned from test and is ready for "real" food. Pt. has his own teeth and no chewing/swallowing difficulties. Per most recent MD note pt's diet can be advanced. Percent of energy/protein needs met: 0/0% Burn Absent Trauma Absent #1 Nutrition Diagnoses Predicted suboptimal energy intake Diagnosis Progress(for reassessment Continues documentation) Is patient on ventilator? No Is Patient Ambulatory and/or Out of Bed No REE-([facility]-confined to bed) [phone] Calculation Used for Recommendations [facility] Additional Notes Protein Needs: 64-79g (0.8-1g/ kg) Fluid Needs: 1ml/kcal Nutrition Intervention Change Diet Order: Advance diet to full liquid and advance to cardiac as tolerated Add Supplement/Snack (indicate name/kcal Ensure Clear Mixed Coello 1 /protein ) daily Goal #1 po tolerance Goal #2 Diet advancement to cardiac and po intake of >75% kcal/pro needs met Anticipated Discharge Needs: Unable to determine at this time Follow-Up By: 06/18/18 Additional Comments Follow for PO intakes, ONS intakes
[2018-06-17] MEDS ORDERED: K-DUR PO ONE (14:17)
[2018-06-18] MEDS: VANCOMYCIN 1,250 MG in NACL 0.9% 250ML 250 ML IV SCH (03:54)
[2018-06-18 05:51] LABS: Hematocrit 34.1 % (35.5-45.6); Hemoglobin 11.6 gm/dl (11.8-15.2); Mean Corpuscular HGB Conc 34 % (32-34); Mean Corpuscular Volume 83 fl (84-94); Platelet Count 324 K/mm3 (140-440); Red Cell Distribution Width 12.8 % (13.2-15.2)
[2018-06-18 06:06] LABS: BUN/Creatinine Ratio 14; Blood Urea Nitrogen 14 mg/dL (9-20); Calcium 7.9 mg/dL (8.4-10.2); Hemolysis Index 5
[2018-06-18] MEDS: HumaLOG SUB-Q SCH ×2 (07:59→12:07)
--- NOTE | 2018-06-18 08:54 | Progress Note ---
Addendum entered and electronically signed by FELIBERTO ROMANO MD 06/18/18 11:06: May go home cardiac horton on Toprol Xl 200 mg Lisinopril 2.5 mg Aldactone 25 mg Aspirin 81 mg Plavix 75 mg Amiodarone 200 mg po daily Crestor 20 mg po qhs (history of intolerance to lipitor) Followup with Dr Miles will be scheduled Original Note: Assessment and Plan Cardiac arrest manifested by ventricular fibrillation and ventricular tachycardia. on amiodarone lifevest is in place Acute anterolateral wall ST elevation myocardial infarction s/p PCI of the left anterior descending artery in its mid segment using drug- eluting stents EF 20-30% by echocardiogram Leukocytosis Abdominal pain with N/V -resolved Presumed aspiration pneumonia: due to MSSA - repeat CXR showed nonspecific new patchy and interstitial opacity is noted in the right mid nirav and left mid to lower lung. Recommendations: Continue medical therapy for VT/VF, ischemic cardiomyopathy and coronary artery disease including DAPT without interruption. Subjective Date of service: 06/18/18 Principal diagnosis: abd pain, N/V, diarrhea Interval history: Patient is feeling better. He denies chest pain and shortness of breath. Objective Vital Signs Temp Pulse Pulse Resp Resp BP BP 06/18/18 07:32 98.5 F 92 H 28 H 139/94 06/18/18 04:35 98.3 F 90 20 125/86 06/18/18 00:05 90 17 06/17/18 23:56 98.1 F 87 20 118/81 06/17/18 21:50 92 H 20 06/17/18 21:39 97 H 122/81 06/17/18 20:10 98.3 F 97 H 20 122/81 06/17/18 19:57 17 06/17/18 19:09 101 H 06/17/18 16:28 97.9 F 20 L 126/74 06/17/18 11:10 98.8 F 96 H 20 122/71 06/17/18 10:13 104 H 140/92 06/17/18 10:12 104 H 140/92 06/17/18 10:00 97 H Pulse Ox 06/18/18 07:32 94 06/18/18 04:35 94 06/18/18 00:05 06/17/18 23:56 97 06/17/18 21:50 97 06/17/18 21:39 06/17/18 20:10 97 06/17/18 19:57 06/17/18 19:09 06/17/18 16:28 98 06/17/18 11:10 95 06/17/18 10:13 06/17/18 10:12 06/17/18 10:00 - Physical Examination General: No Apparent Distress HEENT: Positive: PERRL Neck: Positive: trachea midline Cardiac: Positive: Reg Rate and Rhythm Lungs: Positive: Decreased Breath Sounds Neuro: Positive: Grossly Intact Abdomen: Positive: Soft Extremities: Absent: edema - Labs and Meds CBC 06/18/18 Range/Units 04:46 WBC 11.2 H (4.5-11.0) K/mm3 RBC 4.10 (3.65-5.03) M/mm3 Hgb 11.6 L (11.8-15.2) gm/dl Hct 34.1 L (35.5-45.6) % Plt Count 324 (140-440) K/mm3 Comprehensive Metabolic Panel 06/18/18 Range/Units 04:46 Sodium 137 (137-145) mmol/L Potassium 3.4 L (3.6-5.0) mmol/L Chloride 102.1 (98-107) mmol/L Carbon Dioxide 21 L (22-30) mmol/L BUN 14 (9-20) mg/dL Creatinine 1.0 (0.8-1.5) mg/dL Glucose 108 H (75-100) mg/dL Calcium 7.9 L (8.4-10.2) mg/dL
[2018-06-18] MEDS ORDERED: PROTONIX PO SCH (10:00)
[2018-06-18] MEDS: PLAVIX PO SCH (10:09)
[2018-06-18] MEDS: HALFPRIN EC PO SCH (10:09)
[2018-06-18] MEDS: LACTINEX PO SCH (10:10)
[2018-06-18] MEDS: CORDARONE PO SCH (10:10)
[2018-06-18] MEDS: IMDUR PO SCH (10:10)
[2018-06-18] MEDS: LOPRESSOR PO SCH (10:11)
[2018-06-18] MEDS: ZESTRIL PO SCH (10:11)
[2018-06-18] MEDS: LOVENOX SUB-Q SCH (10:14)
--- NOTE | 2018-06-18 12:32 | Progress Note ---
Assessment and Plan Imagin06/11/18 Chest Xray: no consolidations Cultures: 06/11/2018 Blood: no growth to date 06/11/2018 Urine: no growth to date 06/11/2018 Tracheal Aspirate: MSSA 06/17/2018: Stool: Theresa A/P: 57-year-old male with no significant medical history, had a syncopal episode in the waiting room, was brought back to the ER, s/p cardiac arrest requiring CPR, shocked x 3 for Ventricular Fibrillation and taken to the [facility] where a stent was placed in the LAD, admitted with: 1. Sepsis: improving, leukocytosis better from 30-->11.2, no fever. Likely multifactorial - reactive from STEMI/cardiac arrest +/- aspiration pneumonia. 2. Presumed aspiration pneumonia: due to MSSA - repeat CXR showed nonspecific new patchy and interstitial opacity is noted in the right midlung and left mid to lower lung. - Sputum 06/11/2018 +MSSA 3. STEMI / Status post cardiac arrest: Stent placed in LAD. On amiodarone, lifevest is in place. EF 20-30% 4. Acute Respiratory failure: resolved 5. Penicillin Allergy: remote/hives 6. Diarrhea: unclear etiology - Resolved. CT abdomen showed no colitis. Prob from antibiotics. Plan: - continue Vancomycin , D5 - discontinue after today - monitor leukocytosis , improving -Theresa in stool, probably iovergrowth from recent antibiotics, consider probiotics [facility] M: [phone] O:[phone] Subjective Date of service: 06/18/18 Principal diagnosis: abd pain, N/V, diarrhea Interval history: Patient seen and examined. Denied pain, sob, fevers or diarrhea. Stated that he was feeling much better today and was ready to go home. Objective - Exam Narrative Exam: Constitutional: Alert, cooperative. no acute distress Head, Ears, Nose: Normocephalic, atraumatic. External ears, nose normal Eyes: Conjunctivae/corneas clear. No icterus. No ptosis. Neck: Supple, no meningeal signs Oral: dentition good, no thrush Cardiovascular: S1, S2 normal. Respiratory: Good air entry, clear to auscultation bilaterally GI: Soft, non-tender; bowel sounds normal. No peritoneal signs Musculoskeletal: Minor back pain and muscle spasms Skin: No rash or abscess. Hem/Lymphatic: No palpable cervical or supraclavicular nodes. No lymphangitis Psych: Mood good. Affect normal Neurological: Awake, alert, oriented. - Constitutional Vitals: Vital Signs Temp Pulse Resp BP Pulse Ox 98.5 F 92 H 18 139/94 94 06/18/18 07:32 06/18/18 10:11 06/18/18 11:56 06/18/18 10:11 06/18/18 07:32 Temperature -Last 24 Hours Temperature 98.5 F Temperature 98.3 F Temperature 98.1 F Temperature 98.3 F Temperature 97.9 F - Labs CBC & Chem 7: 06/18/18 04:46 06/18/18 04:46 Labs: Abnormal lab results 06/17/18 06/17/18 06/18/18 Range/Units 16:15 22:40 04:46 WBC 11.2 H (4.5-11.0) K/mm3 Hgb 11.6 L (11.8-15.2) gm/dl Hct 34.1 L (35.5-45.6) % MCV 83 L (84-94) fl RDW 12.8 L (13.2-15.2) % Potassium (3.6-5.0) mmol/L Carbon Dioxide (22-30) mmol/L Glucose (75-100) mg/dL POC Glucose 106 H 114 H (70-105) Calcium (8.4-10.2) mg/dL 06/18/18 06/18/18 Range/Units 04:46 10:57 WBC (4.5-11.0) K/mm3 Hgb (11.8-15.2) gm/dl Hct (35.5-45.6) % MCV (84-94) fl RDW (13.2-15.2) % Potassium 3.4 L (3.6-5.0) mmol/L Carbon Dioxide 21 L (22-30) mmol/L Glucose 108 H (75-100) mg/dL POC Glucose 111 H (70-105) Calcium 7.9 L (8.4-10.2) mg/dL
[2018-06-18] MEDS ORDERED: K-DUR PO NR (12:33)
--- NOTE | 2018-06-18 12:39 | Progress Note ---
Assessment and Plan Assessment and plan: Patient is 57 yo man without chronic medical problems who presented to [facility] ED with Chest pains. While he was in the waiting room, he had a syncopal episode. He was brought back into the emergency room where he had cardiac arrest and CPR was started. Patient was shocked 3 for V. fib, he was taken emergently to the orthodontic lab technician where a stent was placed in the LAD. Imagin06/11/18 Chest Xray: no consolidations Cultures: 06/11/2018 Blood: no growth to date 06/11/2018 Urine: no growth to date 06/11/2018 Tracheal Aspirate: Staph aureus stool culture Lluvia Albican most likely overgrowth, no need to treat per Dr. Harris STEMI with cardiac stent to LAD: Cardiology is following, still on IV ntg drip Acute respiratory failure, s/p Intubation and now extubated 06/11/17: wean o2 as appropriate Acute combined heart failure, poa: may benefit from lasix, will defer to Cardiology Cardiac arrest, with successful resuscitation Continous right sided CP, possible related to defibrillation/chest compression; continue pain management, d/w Dr. Miles suspect Caron and start NSAIDS SIRS with organ dysfunction vs Sepsis will stop abx and monitor, urine culture pending, consulted ID, WBC increasing Staph aureus in trach aspirate, pending identity and sensitivities==>MSSA Aspiration bilateral pneumonia treat with 5 days of iv vancomycin Status post V. fib cardiac arrest with estimated EF 20-30%: LifeVest being applied today Hypokalemia resolved: monitor bmp closely Cardiogenic syncope Last day for iv vancomycin, d/c after 5 days of IV vancomycin History Interval history: Patient was seen and examined. Follow-up on current diagnosis of STEMI. He has burning epigastric pains which developed with the n/v/d yesterday which has resolved. The diarrhea has resolved; therefore, he hasn't given a sample for the cdiffe ordered by GI. He wants to go home. Hospitalist Physical - Physical exam Narrative exam: Gen: ill appearing dry heaving, NAD, Awake, Alert, Orientated x 3 HEENT: NCAT, EOMI, PERRL, OP Clear Neck: supple, no adenopathy, no thyromegaly, + JVD CVS/Heart: RRR, normal S1S2, pulses present bilaterally Chest/Lungs: diminished bs bilateral but improved, Symmetrical chest expansion, good air entry bilaterally GI/Abdomen: soft, diffuse tender, distended good bowel sounds, no guarding or rebound /Bladder: no suprapubic tenderness, no CVA or paraspinal tenderness Extermity/Skin: no c/c/e, no obvious rash MSK: FROM x 4 Neuro: CN 2-12 grossly intact, no new focal deficits Psych: calm - Constitutional Vitals: Temp Pulse Resp BP Pulse Ox 98.5 F 92 H 18 139/94 94 06/18/18 07:32 06/18/18 10:11 06/18/18 11:56 06/18/18 10:11 06/18/18 07:32 General appearance: Present: no acute distress, well-nourished Results - Labs CBC & Chem 7: 06/18/18 04:46 06/18/18 04:46 Labs: Laboratory Last Values WBC 11.2 K/mm3 (4.5-11.0) H 06/18/18 04:46 RBC 4.10 M/mm3 (3.65-5.03) 06/18/18 04:46 Hgb 11.6 gm/dl (11.8-15.2) L 06/18/18 04:46 Hct 34.1 % (35.5-45.6) L 06/18/18 04:46 MCV 83 fl (84-94) L 06/18/18 04:46 MCH 28 pg (28-32) 06/18/18 04:46 MCHC 34 % (32-34) 06/18/18 04:46 RDW 12.8 % (13.2-15.2) L 06/18/18 04:46 Plt Count 324 K/mm3 (140-440) 06/18/18 04:46 Lymph # [place]ighbridge Operator 06/11/18 01:31 Add Manual Diff Complete 06/12/18 04:41 Total Counted 100 06/12/18 04:41 Seg Neutrophils % Weighbridge Operator 06/11/18 04:58 Seg Neuts % (Manual) 95.0 % (40.0-70.0) H 06/12/18 04:41 Band Neutrophils % 0 % 06/12/18 04:41 Lymphocytes % (Manual) 2.0 % (13.4-35.0) L 06/12/18 04:41 Reactive Lymphs % (Man) 0 % 06/12/18 04:41 Monocytes % (Manual) 3.0 % (0.0-7.3) 06/12/18 04:41 Eosinophils % (Manual) 0 % (0.0-4.3) 06/12/18 04:41 Basophils % (Manual) 0 % (0.0-1.8) 06/12/18 04:41 Metamyelocytes % 0 % 06/12/18 04:41 Myelocytes % 0 % 06/12/18 04:41 Promyelocytes % 0 % 06/12/18 04:41 Blast Cells % 0 % 06/12/18 04:41 Nucleated RBC % Not Reportable 06/12/18 04:41 Seg Neutrophils # Man 28.6 K/mm3 (1.8-7.7) H 06/12/18 04:41 Band Neutrophils # 0.0 K/mm3 06/12/18 04:41 Lymphocytes # (Manual) 0.6 K/mm3 (1.2-5.4) L 06/12/18 04:41 Abs React Lymphs (Man) 0.0 K/mm3 06/12/18 04:41 Monocytes # (Manual) 0.9 K/mm3 (0.0-0.8) H 06/12/18 04:41 Eosinophils # (Manual) 0.0 K/mm3 (0.0-0.4) 06/12/18 04:41 Basophils # (Manual) 0.0 K/mm3 (0.0-0.1) 06/12/18 04:41 Metamyelocytes # 0.0 K/mm3 06/12/18 04:41 Myelocytes # 0.0 K/mm3 06/12/18 04:41 Promyelocytes # 0.0 K/mm3 06/12/18 04:41 Blast Cells # 0.0 K/mm3 06/12/18 04:41 WBC Morphology Not Reportable 06/12/18 04:41 Hypersegmented Neuts Not Reportable 06/12/18 04:41 Hyposegmented Neuts Not Reportable 06/12/18 04:41 Hypogranular Neuts Not Reportable 06/12/18 04:41 Smudge Cells Not Reportable 06/12/18 04:41 Toxic Granulation Not Reportable 06/12/18 04:41 Toxic Vacuolation Not Reportable 06/12/18 04:41 Dohle Bodies Not Reportable 06/12/18 04:41 Pelger-Huet Anomaly Not Reportable 06/12/18 04:41 Zander Rods Not Reportable 06/12/18 04:41 Platelet Estimate Consistent w auto 06/12/18 04:41 Clumped Platelets Not Reportable 06/12/18 04:41 Plt Clumps, EDTA Not Reportable 06/12/18 04:41 Large Platelets Not Reportable 06/12/18 04:41 Giant Platelets Not Reportable 06/12/18 04:41 Platelet Satelliting Not Reportable 06/12/18 04:41 Plt Morphology Comment Not Reportable 06/12/18 04:41 RBC Morphology Not Reportable 06/12/18 04:41 Dimorphic RBCs Not Reportable 06/12/18 04:41 Polychromasia Not Reportable 06/12/18 04:41 Hypochromasia Not Reportable 06/12/18 04:41 Poikilocytosis Not Reportable 06/12/18 04:41 Anisocytosis 1+ 06/12/18 04:41 Microcytosis Not Reportable 06/12/18 04:41 Macrocytosis Not Reportable 06/12/18 04:41 Spherocytes Not Reportable 06/12/18 04:41 Pappenheimer Bodies Not Reportable 06/12/18 04:41 Sickle Cells Not Reportable 06/12/18 04:41 Target Cells Not Reportable 06/12/18 04:41 Tear Drop Cells Not Reportable 06/12/18 04:41 Ovalocytes Not Reportable 06/12/18 04:41 Helmet Cells Not Reportable 06/12/18 04:41 [place] Bodies Not Reportable 06/12/18 04:41 [place] Rings Not Reportable 06/12/18 04:41 [place] Cells Not Reportable 06/12/18 04:41 Bite Cells Not Reportable 06/12/18 04:41 Crenated Cell Not Reportable 06/12/18 04:41 Elliptocytes Not Reportable 06/12/18 04:41 Acanthocytes (Spur) Not Reportable 06/12/18 04:41 Rouleaux Not Reportable 06/12/18 04:41 Hemoglobin C Crystals Not Reportable 06/12/18 04:41 Schistocytes Not Reportable 06/12/18 04:41 Malaria parasites Not Reportable 06/12/18 04:41 Joel Bodies Not Reportable 06/12/18 04:41 Hem Pathologist Commnt No 06/12/18 04:41 PT 13.9 Sec. (12.2-14.9) 06/11/18 01:31 INR 1.03 (0.87-1.13) 06/11/18 01:31 APTT 29.2 Sec. (24.2-36.6) 06/11/18 01:31 POC ABG pH 7.475 (7.35-7.45) H 06/13/18 23:46 POC ABG pCO2 28.6 (35-45) L 06/13/18 23:46 POC ABG pO2 49 (80-105) L 06/13/18 23:46 POC ABG HCO3 21.1 06/13/18 23:46 POC ABG Total CO2 22 06/13/18 23:46 POC ABG O2 Sat 87 06/13/18 23:46 POC ABG Base Excess -3 06/13/18 23:46 FiO2 100 % 06/13/18 23:46 Sodium 137 mmol/L (137-145) 06/18/18 04:46 Potassium 3.4 mmol/L (3.6-5.0) L 06/18/18 04:46 Chloride 102.1 mmol/L (98-107) 06/18/18 04:46 Carbon Dioxide 21 mmol/L (22-30) L 06/18/18 04:46 Anion Gap 17 mmol/L 06/18/18 04:46 BUN 14 mg/dL (9-20) 06/18/18 04:46 Creatinine 1.0 mg/dL (0.8-1.5) 06/18/18 04:46 Estimated GFR > 60 ml/min 06/18/18 04:46 BUN/Creatinine Ratio 14 % 06/18/18 04:46 Glucose 108 mg/dL (75-100) H 06/18/18 04:46 POC Glucose 111 (70-105) H 06/18/18 10:57 Hemoglobin A1c 5.9 % (4-6) 06/12/18 04:41 Lactic Acid 3.80 mmol/L (0.7-2.0) H* 06/11/18 17:34 Calcium 7.9 mg/dL (8.4-10.2) L 06/18/18 04:46 Magnesium 2.00 mg/dL (1.7-2.3) 06/18/18 04:46 Total Bilirubin 0.20 mg/dL (0.1-1.2) 06/11/18 01:31 AST 56 units/L (5-40) H 06/11/18 01:31 ALT 58 units/L (7-56) H 06/11/18 01:31 Alkaline Phosphatase 79 units/L (35-129) 06/11/18 01:31 Ammonia 62.0 umol/L (25-60) H 06/11/18 01:31 Total Creatine Kinase 2243 units/L (55-170) H 06/12/18 04:41 CK-MB (CK-2) 207.4 ng/mL (0.0-4.0) H 06/12/18 04:41 CK-MB (CK-2) Rel Index 9.2 (0-4) H 06/12/18 04:41 Troponin T 1.690 ng/mL (0.00-0.029) H* D 06/15/18 12:08 NT-Pro-B Natriuret Pep 1466 pg/mL (0-900) H 06/11/18 01:31 Total Protein 5.9 g/dL (6.3-8.2) L 06/11/18 01:31 Albumin 3.8 g/dL (3.9-5) L 06/11/18 01:31 Albumin/Globulin Ratio 1.8 % 06/11/18 01:31 Triglycerides 41 mg/dL (2-149) 06/11/18 04:58 Cholesterol 140 mg/dL (50-199) 06/11/18 04:58 LDL Cholesterol Direct 103 mg/dL (50-130) 06/11/18 04:58 HDL Cholesterol 41 mg/dL (40-59) 06/11/18 04:58 Cholesterol/HDL Ratio 3.41 % 06/11/18 04:58 TSH 7.520 mlU/mL (0.270-4.200) H 06/11/18 01:31 Thyroxine (T4) 7.1 ug/dL (4.0-12.0) 06/11/18 04:58 Urine Color Yellow (Yellow) 06/11/18 01:31 Urine Turbidity Turbid (Clear) 06/11/18 01:31 Urine pH 6.0 (5.0-7.0) 06/11/18 01:31 Ur Specific [place] 1.027 (1.003-1.030) 06/11/18 01:31 Urine Protein 100 mg/dl mg/dL (Negative) 06/11/18 01:31 Urine Glucose (UA) Negative mg/dL (Negative) 06/11/18 01:31 Urine Ketones Trace mg/dL (Negative) 06/11/18 01:31 Urine Blood Negative (Negative) 06/11/18 01:31 Urine Nitrite Negative (Negative) 06/11/18 01:31 Urine Bilirubin Negative (Negative) 06/11/18 01:31 Urine Urobilinogen < 2.0 mg/dL (<2.0) 06/11/18 01:31 Ur Leukocyte Esterase Trace (Negative) 06/11/18 01:31 Urine WBC (Auto) 11.0 /HPF (0.0-6.0) H 06/11/18 01:31 Urine RBC (Auto) 36.0 /HPF (0.0-6.0) 06/11/18 01:31 Urine Bacteria (Auto) 4+ /HPF (Negative) 06/11/18 01:31 Urine Mucus 3+ /HPF 06/11/18 01:31 Urine Yeast (Budding) 3+ /HPF 06/11/18 01:31 Urine Sperm 3+ /HPF (WAGON DRILLER) 06/11/18 01:31 Urine Opiates Screen Presumptive positive 06/11/18 01:31 Urine Methadone Screen Presumptive negative 06/11/18 01:31 Ur Barbiturates Screen Presumptive negative 06/11/18 01:31 Ur Phencyclidine Scrn Presumptive negative 06/11/18 01:31 Ur Amphetamines Screen Presumptive negative 06/11/18 01:31 U Benzodiazepines Scrn Presumptive negative 06/11/18 01:31 Urine Cocaine Screen Presumptive negative 06/11/18 01:31 U Marijuana (THC) Screen Presumptive negative 06/11/18 01:31 Drugs of Abuse Note Disclamer 06/11/18 01:31 Plasma/Serum Alcohol < 0.01 % (0-0.07) 06/11/18 01:31 Blood Type O NEGATIVE 01/02/19 01:31 Antibody Screen Negative 06/11/18 01:31 Nutrition/Malnutrition Assess - Dietary Evaluation Nutrition/Malnutrition Findings: Nutrition Notes Start: 06/11/18 13:34 Freq: Status: Active Protocol: Document 06/18/18 10:15 LM (Rec: 06/18/18 11:03 LM [id number]) Co-Sign 06/18/18 10:15 OL Nutrition Notes Initial or Follow up Reassessment Other Pertinent Diagnosis s/p cardiac arrest, s/p vfib Current Diet Mechanical Soft Labs/Tests Reviewed Pertinent Medications Reviewed Height 5 ft 8 in Weight 79.4 kg [place] Body Weight (lbs) 154.0 BMI 26.6 Subjective/Other Information Pt stated that he was hungry since last night and ate all of his breakfast. Pt stated he likes the Esure clear mixed bahena and would like to have one for lunch. Percent of energy/protein needs met: 100%/100% Burn Absent Trauma Absent #1 Nutrition Diagnosis Predicted suboptimal energy intake As Evidenced by Signs and Symptoms Diet advanced to mechanical soft and consuming 100% of meal today Diagnosis Progress(for reassessment Improved documentation) Is patient on ventilator? No Is Patient Ambulatory and/or Out of Bed No REE-([facility]-confined to bed) [phone] Calculation Used for Recommendations [facility] Additional Notes Protein Needs: 64-79g (0.8-1g/ kg) Fluid Needs: 1ml/kcal Nutrition Intervention Change Diet Order: Recommend GI soft with cardiac Add Supplement/Snack (indicate name/kcal Ensure Clear Mixed Bahena 1 /protein ) daily Provides kCal: 240 Provides Protein (gm) 8 Goal #1 Diet advancement Goal #2 Meet at least 75% of energy and protein needs Anticipated Discharge Needs: Cardiac diet Follow-Up By: 06/23/18 Additional Comments Follow for PO intakes, ONS intakes
--- NOTE | 2018-06-18 12:45 | Discharge Summary ---
Providers - Providers Date of Admission: 06/11/18 03:20 Date of discharge: 06/18/18 Attending physician: JOSELITO HORTON 06/11/18 Consult to Cardiac Rehabilitation [CONS] Routine Reason For Exam: post pci 06/11/18 01:31 Consult to Physician [CONS] Stat Comment: Dr. Shah spoke with Dr. Degroot @ [id number] Consulting Provider: ELIAS DEGROOT Physician Instructions: Reason For Exam: STEMI 06/11/18 03:09 Consult to Dietitian/Nutrition [CONS] Routine Physician Instructions: Reason For Exam: Reason for Consult: Evaluate nutritional intake 06/12/18 07:55 Consult to Physician [CONS] Routine Comment: Consulting Provider: GURDEEP COULTER Physician Instructions: i notified Reason For Exam: ?sepsis 06/12/18 10:18 Physical Therapy Evaluation and Treat [CONS] Routine Comment: s/p Cardiac Arrest Reason For Exam: deconditioning 06/16/18 11:16 Consult to Physician [CONS] Routine Comment: Consulting Provider: JORGE LUIS JIMENEZ Physician Instructions: Reason For Exam: gib vs ischemic colitis s/p vfib arrest Primary care physician: PAIN MEDICINE PHYSICIAN Hospitalization Condition: Stable Hospital course: Patient is 57 yo man without chronic medical problems who presented to [facility] ED with Chest pains. While he was in the waiting room, he had a syncopal episode. He was brought back into the emergency room where he had cardiac arrest and CPR was started. Patient was shocked 3 for V. fib, he was taken emergently to the slab depiler operator where a stent was placed in the LAD. Imagin06/11/18 Chest Xray: no consolidations Cultures: 06/11/2018 Blood: no growth to date 06/11/2018 Urine: no growth to date 06/11/2018 Tracheal Aspirate: Staph aureus stool culture Lluvia Albican most likely overgrowth, no need to treat per Dr. Harris STEMI with cardiac stent to LAD: Cardiology is following, still on IV ntg drip, statin intolerance to Lipitor only Acute respiratory failure, s/p Intubation and now extubated 06/11/17: wean o2 as appropriate Acute combined heart failure, poa: may benefit from lasix, will defer to Card iology Cardiac arrest, with successful resuscitation Continous right sided CP, possible related to defibrillation/chest compression; continue pain management, d/w Dr. Degroot suspect Caron and start NSAIDS SIRS with organ dysfunction vs Sepsis will stop abx and monitor, urine culture pending, consulted ID, WBC increasing Staph aureus in trach aspirate, pending identity and sensitivities==>MSSA Aspiration bilateral pneumonia treat with 5 days of iv vancomycin Status post V. fib cardiac arrest with estimated EF 20-30%: LifeVest being applied today Hypokalemia resolved: monitor bmp closely Cardiogenic syncope May go home cardiac horton on Toprol Xl 200 mg Lisinopril 2.5 mg Aldactone 25 mg Aspirin 81 mg Plavix 75 mg Amiodarone 200 mg po daily Crestor 20 mg po qhs (history of intolerance to lipitor) Followup with Dr Degroot will be scheduled Disposition: DC- TO HOME OR SELFCARE Time spent for discharge: 34 minutes Core Measure Documentation - Palliative Care Palliative Care/ Comfort Measures: Not Applicable - Core Measures Any of the following diagnoses?: acute VA, heart failure - VTE Discharge Requirements Deep Vein Thrombosis/Pulmonary Embolism Present on Admission: No Has pt received <5 days of overlap therapy or INR<2.0: No Anticoagulant overlap therapy prescribed at discharge: No Contraindication No Overlap Therapy order at DC: Not Indicated - Acute VA Discharge Requirements Aspirin at discharge: Yes MIKO/ARB for LVSD if EF <40%: Yes Beta karis at discharge: Yes Statin for LDL = or >100 mg/dl on DC: Yes - Heart Failure Discharge Requirements MIKO/ARB for LVSD if EF <40%: Yes Beta karis at discharge: Yes Exam - Physical Exam Narrative exam: Gen: ill appearing dry heaving, NAD, Awake, Alert, Orientated x 3 HEENT: NCAT, EOMI, PERRL, OP Clear Neck: supple, no adenopathy, no thyromegaly, + JVD CVS/Heart: RRR, normal S1S2, pulses present bilaterally Chest/Lungs: diminished bs bilateral but improved, Symmetrical chest expansion, good air entry bilaterally GI/Abdomen: soft, diffuse tender, distended good bowel sounds, no guarding or rebound /Bladder: no suprapubic tenderness, no CVA or paraspinal tenderness Extermity/Skin: no c/c/e, no obvious rash MSK: FROM x 4 Neuro: CN 2-12 grossly intact, no new focal deficits Psych: calm - Constitutional Vitals: Temp Pulse Resp BP Pulse Ox 98.5 F 92 H 18 139/94 94 06/18/18 07:32 06/18/18 10:11 06/18/18 11:56 06/18/18 10:11 06/18/18 07:32 Plan Activity: other (no strenous activity including sex unless cleared by Cardiology) Diet: low salt Follow up with: PRIMARY MD OSBALDO [Primary Care Provider] - 7 Days ELIAS DEGROOT MD [Staff Physician] - 7 Days Prescriptions: Rosuvastatin (Nf) [Crestor] 20 mg PO QHS #30 tablet Amiodarone [Cordarone 200 MG TAB] 200 mg PO BID #60 tablet Aspirin EC [Aspirin Enteric Coated TAB] 81 mg PO QDAY #30 tablet Clopidogrel [Plavix] 75 mg PO QDAY #30 tablet ISOSORBIDE MONOnitrate [Imdur ER] 30 mg PO QDAY #30 tablet Lactobacillus Acidophil [Lactinex] 1 each PO BID #30 tab.chew Lisinopril [Zestril TAB] 2.5 mg PO QDAY #30 tablet Metoprolol Xl [Metoprolol SUCCINATE ER TAB] 200 mg PO QDAY #30 tablet Spironolactone [Aldactone] 25 mg PO QDAY #30 tablet
[2018-06-18 14:25] VITALS: BP 114/70
[2018-06-19] MEDS ORDERED: TOPROL XL PO SCH (10:00)
[2018-06-19] MEDS ORDERED: ALDACTONE PO SCH (10:00)
--- NOTE | 2018-06-19 13:50 | Query- General ---
Sada Whitney____Wise Date:__06/19/2018 Capacity Manager/CDS:___Cande/Giovana Phone#:__[phone] Exercise your independent professional judgment when responding to this query. Questions asked do not imply a particular answer is desired or expected. We greatly appreciate your clarification on this issue. Clinical Documentation States: Patient is 57 yo man without chronic medical problems who presented to [facility] ED with Chest pains. While he was in the waiting room, he had a syncopal episode. He was brought back into the emergency room where he had cardiac arrest and CPR was started. The Discharge summary stated "SIRS with organ dysfunction vs Sepsis will stop abx and monitor, urine culture pending, consulted ID, WBC increasing." Given the above clinical scenario can you please provide an appropriate diagnosis based on your knowledge of the patient: PHYSICIAN RESPONSE: [ ] Sepsis Ruled In [ ] Sepsis Ruled Out [ X] Other (Please specify): __sirs with organ dysfunction Present on Admission: [x ] Yes (Y) [ ] Clinically undeterminable (W) [ ]No(N) Please also document response in your Progress Notes and/or Discharge Summary and indicate if the condition was present on admission. [email or web address]
== END 2018-06-18 19:40 | disposition home or self-care (01) | DRG 853 ==
LOC: ED 01:03 → CC1 03:20 → 4A 06-12 18:14
PROVIDERS: ADMIT Internal Medicine; ATTEND Internal Medicine
PROC: 5A1935Z Respiratory Ventilation, Less than 24 Consecutive Hours (ICD-10-PCS; principal; 2018-06-11)
PROC: 0BH17EZ Insertion of Endotracheal Airway into Trachea, Via Natural or Artificial Opening (ICD-10-PCS; 2018-06-11)
PROC: 027035Z Dilation of Coronary Artery, One Artery with Two Drug-eluting Intraluminal Devices, Percutaneous Approach (ICD-10-PCS; 2018-06-11)
PROC: 5A12012 Performance of Cardiac Output, Single, Manual (ICD-10-PCS; 2018-06-11)
PROC: 4A023N7 Measurement of Cardiac Sampling and Pressure, Left Heart, Percutaneous Approach (ICD-10-PCS; 2018-06-11)
PROC: B2111ZZ Fluoroscopy of Multiple Coronary Arteries using Low Osmolar Contrast (ICD-10-PCS; 2018-06-11)
PROC: 4A033R1 Measurement of Arterial Saturation, Peripheral, Percutaneous Approach (ICD-10-PCS; 2018-06-11)
PROC: 5A09357 Assistance with Respiratory Ventilation, Less than 24 Consecutive Hours, Continuous Positive Airway Pressure (ICD-10-PCS; 2018-06-11)
DX: A41.9 Sepsis, unspecified organism (principal); I21.09 ST elevation (STEMI) myocardial infarction involving other coronary artery of anterior wall; I46.9 Cardiac arrest, cause unspecified; J96.00 Acute respiratory failure, unspecified whether with hypoxia or hypercapnia; I49.01 Ventricular fibrillation; I50.41 Acute combined systolic (congestive) and diastolic (congestive) heart failure; J69.0 Pneumonitis due to inhalation of food and vomit; E87.6 Hypokalemia; R55 Syncope and collapse; I25.10 Atherosclerotic heart disease of native coronary artery without angina pectoris; Z88.0 Allergy status to penicillin
CPT/HCPCS: 36415; 36600; 71045; 74176; 80048; 80053; 80061; 80307; 80320; 81001; 82140; 82270; 82550; 82553; 82803; 82962; 83036; 83735; 83880; 84132; 84436; 84443; 84484; 85007; 85025; 85027; 85347; 85610; 85730; 86850; 86900; 86901; 87040; 87045; 87070; 87076; 87086; 87186; 87205; 92941; 93005; 93010; 93306; 93454; 94002; 94003; 94660; 94760; G0378; A9270-GY; C1725; C1760; C1769; C1874; C1887; C1894; C9113; C9606; G0480; J0171; J0282; J1644; J1650; J1815; J1885; J1940; J1956; J2250; J2270; J2405; J3010; J3370; J3475; J3480; J7030; J7040; J7050; J7060; Q9967

== ENCOUNTER 2018-06-20 13:22 | Inpatient (IN) | payer MEDICAID ==
--- NOTE | 2018-06-20 17:19 | Emergency Department Report ---
ED General Adult HPI - General Chief complaint: Extremity Problem,Nontraumatic Stated complaint: BODY SWELLING Time Seen by Provider: 06/20/18 17:18 Source: patient Mode of arrival: Ambulatory Limitations: No Limitations - History of Present Illness Initial comments: Patient complains of generalized body swelling. -: Gradual Location: upper extremity, lower extremity Radiation: non-radiation Severity scale (0 -10): 0 Improves with: none Worsens with: none Associated Symptoms: denies other symptoms Treatments Prior to Arrival: none - Related Data Previous Rx's Medication Instructions Recorded Last Taken Type Acetaminophen [Acetaminophen TAB] 650 mg PO Q6H PRN #15 tablet 06/18/18 Unknown Rx Amiodarone [Cordarone 200 MG TAB] 200 mg PO BID #60 tablet 06/18/18 Unknown Rx Aspirin EC [Aspirin Enteric Coated 81 mg PO QDAY #30 tablet 06/18/18 Unknown Rx TAB] Clopidogrel [Plavix] 75 mg PO QDAY #30 tablet 06/18/18 Unknown Rx ISOSORBIDE MONOnitrate [Imdur ER] 30 mg PO QDAY #30 tablet 06/18/18 Unknown Rx Lactobacillus Acidophil [Lactinex] 1 each PO BID #30 tab.chew 06/18/18 Unknown Rx Lisinopril [Zestril TAB] 2.5 mg PO QDAY #30 tablet 06/18/18 Unknown Rx Metoprolol Xl [Metoprolol 200 mg PO QDAY #30 tablet 06/18/18 Unknown Rx SUCCINATE ER TAB] Pantoprazole [Protonix TAB] 20 mg PO DAILY #30 tablet 06/18/18 Unknown Rx Rosuvastatin (Nf) [Crestor] 20 mg PO QHS #30 tablet 06/18/18 Unknown Rx Spironolactone [Aldactone] 25 mg PO QDAY #30 tablet 06/18/18 Unknown Rx Allergies Allergy/AdvReac Type Severity Reaction Status Date / Time bupropion [From Wellbutrin] Allergy Unknown Verified 06/20/18 13:53 Penicillins Allergy Hives Verified 06/20/18 13:53 [id number] Reductase Allergy Unknown Verified 06/20/18 13:53 Inhibitor ED Review of Systems ROS: Stated complaint: BODY SWELLING Other details as noted in HPI Comment: All other systems reviewed and negative Constitutional: denies: chills, fever Eyes: denies: eye pain, eye discharge, vision change ENT: denies: ear pain, throat pain Respiratory: denies: cough, shortness of breath, wheezing Cardiovascular: denies: chest pain, palpitations Endocrine: no symptoms reported Gastrointestinal: denies: abdominal pain, nausea, diarrhea Genitourinary: denies: urgency, dysuria Musculoskeletal: other (Generalized body swelling). denies: back pain, joint swelling, arthralgia Skin: denies: rash, lesions Neurological: denies: headache, weakness, paresthesias Psychiatric: denies: anxiety, depression Hematological/Lymphatic: denies: easy bleeding, easy bruising ED Past Medical Hx - Past Medical History Previous Medical History?: Yes Hx Hypertension: Yes Hx Heart Attack/AMI: Yes (06/11/18) Hx Congestive Heart Failure: No Hx Diabetes: No Hx Asthma: No Hx COPD: No Additional medical history: high cholesterol - Surgical History Past Surgical History?: Yes Hx Coronary Stent: Yes (2019) Additional Surgical History: bilateral shoulder - Social History Smoking Status: Never Smoker Substance Use Type: None - Medications Home Medications: Home Medications Medication Instructions Recorded Confirmed Last Taken Type Acetaminophen [Acetaminophen TAB] 650 mg PO Q6H PRN #15 tablet 06/18/18 Unknown Rx Amiodarone [Cordarone 200 MG TAB] 200 mg PO BID #60 tablet 06/18/18 Unknown Rx Aspirin EC [Aspirin Enteric Coated 81 mg PO QDAY #30 tablet 06/18/18 Unknown Rx TAB] Clopidogrel [Plavix] 75 mg PO QDAY #30 tablet 06/18/18 Unknown Rx ISOSORBIDE MONOnitrate [Imdur ER] 30 mg PO QDAY #30 tablet 06/18/18 Unknown Rx Lactobacillus Acidophil [Lactinex] 1 each PO BID #30 tab.chew 06/18/18 Unknown Rx Lisinopril [Zestril TAB] 2.5 mg PO QDAY #30 tablet 06/18/18 Unknown Rx Metoprolol Xl [Metoprolol 200 mg PO QDAY #30 tablet 06/18/18 Unknown Rx SUCCINATE ER TAB] Pantoprazole [Protonix TAB] 20 mg PO DAILY #30 tablet 06/18/18 Unknown Rx Rosuvastatin (Nf) [Crestor] 20 mg PO QHS #30 tablet 06/18/18 Unknown Rx Spironolactone [Aldactone] 25 mg PO QDAY #30 tablet 06/18/18 Unknown Rx ED Physical Exam - General Limitations: No Limitations General appearance: alert, in no apparent distress - Head Head exam: Present: atraumatic, normocephalic - Eye Eye exam: Present: normal appearance - ENT ENT exam: Present: mucous membranes moist - Neck Neck exam: Present: normal inspection - Respiratory Respiratory exam: Present: normal lung sounds bilaterally. Absent: respiratory distress - Cardiovascular Cardiovascular Exam: Present: regular rate, normal rhythm. Absent: systolic murmur, diastolic murmur, rubs, gallop - GI/Abdominal GI/Abdominal exam: Present: soft, normal bowel sounds - Rectal Rectal exam: Present: deferred - Extremities Exam Extremities exam: Present: normal inspection, full ROM, normal capillary refill, pedal edema - Back Exam Back exam: Present: normal inspection, full ROM. Absent: tenderness - Neurological Exam Neurological exam: Present: alert, oriented X3, CN II-XII intact - Psychiatric Psychiatric exam: Present: normal affect, normal mood - Skin Skin exam: Present: warm, dry, intact, normal color. Absent: rash ED Course Vital Signs 06/20/18 06/20/18 06/20/18 13:40 19:26 19:30 Temperature 98.7 F Pulse Rate 104 H 96 H 96 H Respiratory 18 13 23 Rate Blood Pressure 132/83 132/87 Blood Pressure [Left] O2 Sat by Pulse 97 99 98 Oximetry 06/20/18 06/20/18 06/20/18 19:38 19:45 20:00 Temperature Pulse Rate 98 H 97 H 96 H Respiratory 22 22 21 Rate Blood Pressure 136/87 133/83 Blood Pressure 135/85 [Left] O2 Sat by Pulse 97 98 98 Oximetry 06/20/18 06/20/18 20:15 20:30 Temperature Pulse Rate 98 H 97 H Respiratory 24 18 Rate Blood Pressure 132/84 129/86 Blood Pressure [Left] O2 Sat by Pulse 98 98 Oximetry - Consultations Consultation #1: 06/20/18 21:21 I consulted the [employer] faculty member Dr Herman and he recommend IV antibiotics, Lasix and admission for further management. Consultation #2: 06/20/18 21:23 Dr Souza to admit patient. ED Medical Decision Making - Lab Data Result diagrams: 06/20/18 18:06 06/20/18 18:06 Lab Results 06/20/18 06/20/18 06/20/18 Range/Units 18:06 18:06 18:06 WBC 14.5 H (4.5-11.0) K/mm3 RBC 4.36 (3.65-5.03) M/mm3 Hgb 12.1 (11.8-15.2) gm/dl Hct 36.3 (35.5-45.6) % MCV 83 L (84-94) fl MCH 28 (28-32) pg MCHC 33 (32-34) % RDW 12.9 L (13.2-15.2) % Plt Count 426 (140-440) K/mm3 Lymph % (Auto) 14.6 (13.4-35.0) % [place] % (Auto) 6.8 (0.0-7.3) % Eos % (Auto) 2.6 (0.0-4.3) % Baso % (Auto) 1.2 (0.0-1.8) % Lymph # 2.1 (1.2-5.4) K/mm3 [place] # 1.0 H (0.0-0.8) K/mm3 Eos # 0.4 (0.0-0.4) K/mm3 Baso # 0.2 H (0.0-0.1) K/mm3 Seg Neutrophils % 74.8 H (40.0-70.0) % Seg Neutrophils # 10.8 H (1.8-7.7) K/mm3 PT 14.0 (12.2-14.9) Sec. INR 1.04 (0.87-1.13) APTT 29.9 (24.2-36.6) Sec. Sodium (137-145) mmol/L Potassium (3.6-5.0) mmol/L Chloride (98-107) mmol/L Carbon Dioxide (22-30) mmol/L Anion Gap mmol/L BUN (9-20) mg/dL Creatinine (0.8-1.5) mg/dL Estimated GFR ml/min BUN/Creatinine Ratio % Glucose (75-100) mg/dL Calcium (8.4-10.2) mg/dL Magnesium (1.7-2.3) mg/dL Total Bilirubin (0.1-1.2) mg/dL AST (5-40) units/L ALT (7-56) units/L Alkaline Phosphatase (35-129) units/L Total Creatine Kinase 93 (55-170) units/L CK-MB (CK-2) 2.4 (0.0-4.0) ng/mL CK-MB (CK-2) Rel Index 2.5 (0-4) Troponin T 1.140 H* (0.00-0.029) ng/mL NT-Pro-B Natriuret Pep (0-900) pg/mL Total Protein (6.3-8.2) g/dL Albumin (3.9-5) g/dL Albumin/Globulin Ratio % Triglycerides 74 (2-149) mg/dL Cholesterol 115 (50-199) mg/dL LDL Cholesterol Direct 67 (50-130) mg/dL HDL Cholesterol 39 L (40-59) mg/dL Cholesterol/HDL Ratio 2.94 % 06/20/18 Range/Units 18:06 WBC (4.5-11.0) K/mm3 RBC (3.65-5.03) M/mm3 Hgb (11.8-15.2) gm/dl Hct (35.5-45.6) % MCV (84-94) fl MCH (28-32) pg MCHC (32-34) % RDW (13.2-15.2) % Plt Count (140-440) K/mm3 Lymph % (Auto) (13.4-35.0) % [place] % (Auto) (0.0-7.3) % Eos % (Auto) (0.0-4.3) % Baso % (Auto) (0.0-1.8) % Lymph # (1.2-5.4) K/mm3 [place] # (0.0-0.8) K/mm3 Eos # (0.0-0.4) K/mm3 Baso # (0.0-0.1) K/mm3 Seg Neutrophils % (40.0-70.0) % Seg Neutrophils # (1.8-7.7) K/mm3 PT (12.2-14.9) Sec. INR (0.87-1.13) APTT (24.2-36.6) Sec. Sodium 139 (137-145) mmol/L Potassium 3.5 L (3.6-5.0) mmol/L Chloride 100.6 (98-107) mmol/L Carbon Dioxide 24 (22-30) mmol/L Anion Gap 18 mmol/L BUN 10 (9-20) mg/dL Creatinine 1.1 (0.8-1.5) mg/dL Estimated GFR > 60 ml/min BUN/Creatinine Ratio 9 % Glucose 122 H (75-100) mg/dL Calcium 8.7 (8.4-10.2) mg/dL Magnesium 2.10 (1.7-2.3) mg/dL Total Bilirubin 0.30 (0.1-1.2) mg/dL AST 22 (5-40) units/L ALT 33 (7-56) units/L Alkaline Phosphatase 100 (35-129) units/L Total Creatine Kinase (55-170) units/L CK-MB (CK-2) (0.0-4.0) ng/mL CK-MB (CK-2) Rel Index (0-4) Troponin T (0.00-0.029) ng/mL NT-Pro-B Natriuret Pep 2989 H (0-900) pg/mL Total Protein 6.7 (6.3-8.2) g/dL Albumin 3.5 L (3.9-5) g/dL Albumin/Globulin Ratio 1.1 % Triglycerides (2-149) mg/dL Cholesterol (50-199) mg/dL LDL Cholesterol Direct (50-130) mg/dL HDL Cholesterol (40-59) mg/dL Cholesterol/HDL Ratio % - Radiology Data Radiology results: report reviewed, image reviewed CXR showed a small left pleural effusion. - Medical Decision Making New Onset CHF. Healthcare associated Pneumonia. Left Pleural Effusion. Dr Herman the [facility] wants patient admitted for further management. Critical care attestation.: If time is entered above; I have spent that time in minutes in the direct care of this critically ill patient, excluding procedure time. ED Disposition Clinical Impression: HCAP (healthcare-associated pneumonia), Pleural effusion on left, New onset of congestive heart failure, Elevated troponin level Disposition: OP ADMIT IP TO THIS HOSP Is pt being admited?: Yes Does the pt Need Aspirin: Yes Condition: Stable Instructions: Bacterial Pneumonia (ED) Referrals: PRIMARY CARE, [Primary Care Provider] - 3-5 Days Time of Disposition: 21:28
[2018-06-20] MEDS ORDERED: NACL 0.9% 1000 ML 1,000 ML IV ONE (17:43)
[2018-06-20 18:16] LABS: Basophils % (Auto) 1.2 % (0.0-1.8); Eosinophils % (Auto) 2.6 % (0.0-4.3); Hematocrit 36.3 % (35.5-45.6); Hemoglobin 12.1 gm/dl (11.8-15.2); Lymphocytes % (Auto) 14.6 % (13.4-35.0); Mean Corpuscular HGB Conc 33 % (32-34); Mean Corpuscular Volume 83 fl (84-94); Monocytes % (Auto) 6.8 % (0.0-7.3); Platelet Count 426 K/mm3 (140-440); Red Blood Count 4.36 M/mm3 (3.65-5.03); Red Cell Distribution Width 12.9 % (13.2-15.2)
[2018-06-20 18:17] LABS: Basophils # (Auto) 0.2 K/mm3 (0.0-0.1); Eosinophils # (Auto) 0.4 K/mm3 (0.0-0.4); Lymphocytes # (Auto) 2.1 K/mm3 (1.2-5.4)
[2018-06-20 18:26] LABS: INR 1.04 (0.87-1.13)
[2018-06-20 18:27] LABS: Partial Thromboplastin Time 29.9 Sec. (24.2-36.6)
[2018-06-20 18:37] LABS: Creatine Kinase MB 2.4 ng/mL (0.0-4.0)
[2018-06-20 18:39] LABS: Alanine Aminotransferase 33 units/L (7-56); Albumin 3.5 g/dL (3.9-5); BUN/Creatinine Ratio 9; Blood Urea Nitrogen 10 mg/dL (9-20); Calcium 8.7 mg/dL (8.4-10.2); Hemolysis Index 7
[2018-06-20 19:30] LABS: Chol/HDL Ratio 2.94 %
--- NOTE | 2018-06-20 19:37 | XRay Report ---
FINAL REPORT EXAM: XR CHEST 1V AP HISTORY: Dyspnea TECHNIQUE: Two view chest PA and lateral PRIORS: None. FINDINGS: Cardiac and mediastinal contours are unremarkable. No focal pulmonary infiltrate is identified. Ther e is a small left pleural effusion with blunting of the costophrenic angle.. Pulmonary vasculature is unremarkable. IMPRESSION: Small left pleural effusion new since the prior exam
[2018-06-20] MEDS ORDERED: LASIX IV ONE (20:38)
[2018-06-20] MEDS ORDERED: LEVAQUIN 750MG/150ML 750 MG/150 ML BAG IV ONE (21:17)
[2018-06-20] MEDS ORDERED: ZITHROMAX 500 MG in NACL 0.9% 250ML 250 ML IV ONE (21:17)
[2018-06-20] MEDS ORDERED: BABY ASPIRIN PO ONE (21:28)
[2018-06-20] MEDS ORDERED: TYLENOL PO PRN (22:18)
[2018-06-20] MEDS ORDERED: SODIUM CHLORIDE FLUSH SYRINGE 10 ML IV PRN (22:18)
[2018-06-20] MEDS ORDERED: ZOFRAN IV PRN (22:18)
[2018-06-20] MEDS ORDERED: MORPHINE IV PRN (22:18)
[2018-06-20] MEDS ORDERED: ATIVAN ONE (22:19)
--- NOTE | 2018-06-20 22:24 | History and Physical Report ---
History of Present Illness Date of examination: 06/20/18 History of present illness: 57-year-old man with history of coronary artery disease, CHF, status post V. fib cardiac arrest on June 11,comes to the emergency room with complaints of right hand swelling. His symptoms started after he was discharged on June 18, no fever or chills. Also complaining of lower extremity edema however no PND or orthopnea, shortness of breath. He complained of generalized weakness. Old records reviewed. Patient state he was not discharged on a diuretic PAST MEDICAL HISTORY: coronary artery disease, CHF, status post V. fib cardiac PAST SURGICAL HISTORY: Shoulder surgery SOCIAL HISTORY: Denies alcohol, tobacco, drugs FAMILY HISTORY: Hypertension Medications and Allergies Allergies Allergy/AdvReac Type Severity Reaction Status Date / Time bupropion [From Wellbutrin] Allergy Unknown Verified 06/20/18 13:53 Penicillins Allergy Hives Verified 06/20/18 13:53 [id number] Reductase Allergy Unknown Verified 06/20/18 13:53 Inhibitor Home Medications Medication Instructions Recorded Confirmed Last Taken Type Acetaminophen [Acetaminophen TAB] 650 mg PO Q6H PRN #15 tablet 06/18/18 Unknown Rx Amiodarone [Cordarone 200 MG TAB] 200 mg PO BID #60 tablet 06/18/18 Unknown Rx Aspirin EC [Aspirin Enteric Coated 81 mg PO QDAY #30 tablet 06/18/18 Unknown Rx TAB] Clopidogrel [Plavix] 75 mg PO QDAY #30 tablet 06/18/18 Unknown Rx ISOSORBIDE MONOnitrate [Imdur ER] 30 mg PO QDAY #30 tablet 06/18/18 Unknown Rx Lactobacillus Acidophil [Lactinex] 1 each PO BID #30 tab.chew 06/18/18 Unknown Rx Lisinopril [Zestril TAB] 2.5 mg PO QDAY #30 tablet 06/18/18 Unknown Rx Metoprolol Xl [Metoprolol 200 mg PO QDAY #30 tablet 06/18/18 Unknown Rx SUCCINATE ER TAB] Pantoprazole [Protonix TAB] 20 mg PO DAILY #30 tablet 06/18/18 Unknown Rx Rosuvastatin (Nf) [Crestor] 20 mg PO QHS #30 tablet 06/18/18 Unknown Rx Spironolactone [Aldactone] 25 mg PO QDAY #30 tablet 06/18/18 Unknown Rx Active Meds: Active Medications Acetaminophen (Tylenol) 650 mg PO Q4H PRN PRN Reason: Pain MILD(1-3)/Fever >100.5/JULIAN Enoxaparin Sodium (Lovenox) 30 mg SUB-Q QDAY SANDY Levofloxacin/Dextrose (Levaquin 750mg/150ml) 750 mg in 150 mls @ 100 mls/hr IV ONCE ONE Stop: 06/20/18 22:46 Vancomycin HCl (Vancomycin/Ns 1 Gm/250 Ml) 1 gm in 250 mls @ 167.007 mls/hr IV ONCE ONE; Protocol Stop: 06/21/18 00:29 Morphine Sulfate (Morphine) 2 mg IV Q4H PRN PRN Reason: Pain, Moderate (4-6) Ondansetron HCl (Zofran) 4 mg IV Q8H PRN PRN Reason: Nausea And Vomiting Sodium Chloride (Sodium Chloride Flush Syringe 10 Ml) 10 ml IV BID SANDY Sodium Chloride (Sodium Chloride Flush Syringe 10 Ml) 10 ml IV PRN PRN PRN Reason: LINE FLUSH Exam - Physical Exam Narrative exam: General Apperance: The patient lying in bed, breathing comfortable HEENT: Normocephalic, atraumatic. Pupils equally round and reactive to light, EOMI, no sclericterus or JVD or thyromegaly or nodule. , no carotid bruit, mucous membranes moist, no exudate or erythema Heart: S1-S2, regular is rhythm Lungs: Crackles bilaterally, breathing comfortable Abdomen: Positive bowel sounds, soft, nontender, nondistended, no organomegaly Extremities: +edema cyanosis clubbing, left hand and fingers swollen, tender, positive erythema, patient able to make a fist Skin: no rash, nodule, warm and dry Neuro: cranial nerves 2-12 intact, speech is fluent, motor/sensory intact - Constitutional Vitals: Temp Pulse Resp BP Pulse Ox 98.7 F 103 H 13 135/88 97 06/20/18 13:40 06/20/18 21:30 06/20/18 21:30 06/20/18 21:30 06/20/18 21:30 Results - Labs CBC & Chem 7: 06/20/18 18:06 06/20/18 18:06 Labs: Abnormal lab results 06/20/18 06/20/18 06/20/18 Range/Units 18:06 18:06 18:06 WBC 14.5 H (4.5-11.0) K/mm3 MCV 83 L (84-94) fl RDW 12.9 L (13.2-15.2) % [place] # 1.0 H (0.0-0.8) K/mm3 Baso # 0.2 H (0.0-0.1) K/mm3 Seg Neutrophils % 74.8 H (40.0-70.0) % Seg Neutrophils # 10.8 H (1.8-7.7) K/mm3 Potassium 3.5 L (3.6-5.0) mmol/L Glucose 122 H (75-100) mg/dL Troponin T 1.140 H* (0.00-0.029) ng/mL NT-Pro-B Natriuret Pep 2989 H (0-900) pg/mL Albumin 3.5 L (3.9-5) g/dL HDL Cholesterol 39 L (40-59) mg/dL - Imaging and Cardiology EKG: image reviewed Chest x-ray: image reviewed Assessment and Plan Assessment CHF exacerbation, acute systolic Sepsis Cellulitis of the left and Coronary artery disease, status post DC 10 days ago Abnormal cardiac enzymes Plan Admit to medicine Diurese with IV Lasix Check cardiac enzymes, recent echo was done Consult cardiology, monitor I's and O Start IV Zosyn, follow cultures Continue appropriate outpatient medications DVT prophylaxis
[2018-06-20] MEDS ORDERED: VANCOMYCIN/NS 1 GM/250 ML 1 GM/250 ML BAG IV ONE (23:00)
[2018-06-21] MEDS ORDERED: LASIX PO SCH (06:00)
[2018-06-21 06:13] LABS: Basophils # (Auto) 0.1 K/mm3 (0.0-0.1); Basophils % (Auto) 0.4 % (0.0-1.8); Eosinophils # (Auto) 0.2 K/mm3 (0.0-0.4); Eosinophils % (Auto) 1.8 % (0.0-4.3); Hematocrit 34.3 % (35.5-45.6); Hemoglobin 11.8 gm/dl (11.8-15.2); Lymphocytes # (Auto) 1.7 K/mm3 (1.2-5.4); Lymphocytes % (Auto) 12.7 % (13.4-35.0); Mean Corpuscular HGB Conc 35 % (32-34); Mean Corpuscular Volume 83 fl (84-94); Monocytes # (Auto) 0.9 K/mm3 (0.0-0.8); Monocytes % (Auto) 7.1 % (0.0-7.3); Platelet Count 407 K/mm3 (140-440); Red Blood Count 4.15 M/mm3 (3.65-5.03); Red Cell Distribution Width 13.1 % (13.2-15.2)
[2018-06-21 06:33] LABS: BUN/Creatinine Ratio 9; Blood Urea Nitrogen 10 mg/dL (9-20); Calcium 8.4 mg/dL (8.4-10.2); Creatine Kinase MB 1.7 ng/mL (0.0-4.0); Hemolysis Index 4
--- NOTE | 2018-06-21 09:51 | Consultation ---
History of Present Illness Consult date: 06/21/18 Consult reason: other (Leg swelling) History of present illness: 57 YO man with h/o CAD with recent anterior STEMI and fawn-infarct VT/VF arrest s/p LAD PCI on 06/11/18. He was recently discharged home on 06/18/18 with medical therapy and life-vest. Echocardiogram during recent hospitalization revealed EF 20-30%. He is presented to ED with bilateral LE and RUE swelling. He has also noticed orthopnea and cough when he tries to lay down flat. He has not had any significant recurrence of chest pain. ECG reveals SR, LVH, prior anterior ID Past History Past Medical History: CAD Past Surgical History: PTCA Social history: denies: smoking, alcohol abuse Family history: hypertension Medications and Allergies Allergies Allergy/AdvReac Type Severity Reaction Status Date / Time bupropion [From Wellbutrin] Allergy Unknown Verified 06/20/18 13:53 Penicillins Allergy Hives Verified 06/20/18 13:53 [id number]-[id number] Reductase Allergy Unknown Verified 06/20/18 13:53 Inhibitor Home Medications Medication Instructions Recorded Confirmed Last Taken Type Acetaminophen [Acetaminophen TAB] 650 mg PO Q6H PRN #15 tablet 06/18/18 Unknown Rx Amiodarone [Cordarone 200 MG TAB] 200 mg PO BID #60 tablet 06/18/18 Unknown Rx Aspirin EC [Aspirin Enteric Coated 81 mg PO QDAY #30 tablet 06/18/18 Unknown Rx TAB] Clopidogrel [Plavix] 75 mg PO QDAY #30 tablet 06/18/18 Unknown Rx ISOSORBIDE MONOnitrate [Imdur ER] 30 mg PO QDAY #30 tablet 06/18/18 Unknown Rx Lactobacillus Acidophil [Lactinex] 1 each PO BID #30 tab.chew 06/18/18 Unknown Rx Lisinopril [Zestril TAB] 2.5 mg PO QDAY #30 tablet 06/18/18 Unknown Rx Metoprolol Xl [Metoprolol 200 mg PO QDAY #30 tablet 06/18/18 Unknown Rx SUCCINATE ER TAB] Pantoprazole [Protonix TAB] 20 mg PO DAILY #30 tablet 06/18/18 Unknown Rx Rosuvastatin (Nf) [Crestor] 20 mg PO QHS #30 tablet 06/18/18 Unknown Rx Spironolactone [Aldactone] 25 mg PO QDAY #30 tablet 06/18/18 Unknown Rx Active Meds: Active Medications Acetaminophen (Tylenol) 650 mg PO Q4H PRN PRN Reason: Pain MILD(1-3)/Fever >100.5/JULIAN Amiodarone HCl (Cordarone) 200 mg PO BID [facility] Aspirin (Halfprin Ec) 81 mg PO QDAY [facility] Carvedilol (Coreg) 3.125 mg PO BID [facility] Clopidogrel Bisulfate (Plavix) 75 mg PO QDAY [facility] Enoxaparin Sodium (Lovenox) 40 mg SUB-Q QDAY [facility] Furosemide (Lasix) 20 mg PO BID@0600,1800 [facility] Last Admin: 06/21/18 05:50 Dose: 20 mg Documented by: Lactobacillus Acidophilus (Lactinex) 1 each PO BID [facility] Lisinopril (Zestril) 2.5 mg PO QDAY [facility] Miscellaneous Medication (Rosuvastatin (Nf)) 20 mg PO QHS [facility] Morphine Sulfate (Morphine) 2 mg IV Q4H PRN PRN Reason: Pain, Moderate (4-6) Ondansetron HCl (Zofran) 4 mg IV Q8H PRN PRN Reason: Nausea And Vomiting Pantoprazole Sodium (Protonix) 20 mg PO DAILY [facility] Sodium Chloride (Sodium Chloride Flush Syringe 10 Ml) 10 ml IV BID [facility] Sodium Chloride (Sodium Chloride Flush Syringe 10 Ml) 10 ml IV PRN PRN PRN Reason: LINE FLUSH Review of Systems All systems: negative (per hpi) Physical Examination Vital Signs Temp Pulse Resp BP Pulse Ox 98.7 F 104 H 18 132/83 97 06/20/18 13:40 06/20/18 13:40 06/20/18 13:40 06/20/18 13:40 06/20/18 13:40 General appearance: no acute distress HEENT: Positive: PERRL Neck: Positive: neck supple Cardiac: Positive: Reg Rate and Rhythm Lungs: Positive: clear to auscultation, Normal Breath Sounds Neuro: Positive: Grossly Intact Abdomen: Positive: Soft, Active Bowel Sounds Extremities: Present: +1 Edema Results 06/21/18 05:11 06/21/18 05:11 Cardiac Enzymes 06/20/18 06/20/18 06/20/18 Range/Units 18:06 18:06 18:06 WBC 14.5 H (4.5-11.0) K/mm3 RBC 4.36 (3.65-5.03) M/mm3 Hgb 12.1 (11.8-15.2) gm/dl Hct 36.3 (35.5-45.6) % MCV 83 L (84-94) fl MCH 28 (28-32) pg MCHC 33 (32-34) % RDW 12.9 L (13.2-15.2) % Plt Count 426 (140-440) K/mm3 Lymph % (Auto) 14.6 (13.4-35.0) % [place] % (Auto) 6.8 (0.0-7.3) % Eos % (Auto) 2.6 (0.0-4.3) % Baso % (Auto) 1.2 (0.0-1.8) % Lymph # 2.1 (1.2-5.4) K/mm3 [place] # 1.0 H (0.0-0.8) K/mm3 Eos # 0.4 (0.0-0.4) K/mm3 Baso # 0.2 H (0.0-0.1) K/mm3 Seg Neutrophils % 74.8 H (40.0-70.0) % Seg Neutrophils # 10.8 H (1.8-7.7) K/mm3 PT 14.0 (12.2-14.9) Sec. INR 1.04 (0.87-1.13) APTT 29.9 (24.2-36.6) Sec. Sodium (137-145) mmol/L Potassium (3.6-5.0) mmol/L Chloride (98-107) mmol/L Carbon Dioxide (22-30) mmol/L Anion Gap mmol/L BUN (9-20) mg/dL Creatinine (0.8-1.5) mg/dL Estimated GFR ml/min BUN/Creatinine Ratio % Glucose (75-100) mg/dL Calcium (8.4-10.2) mg/dL Magnesium (1.7-2.3) mg/dL Total Bilirubin (0.1-1.2) mg/dL AST (5-40) units/L ALT (7-56) units/L Alkaline Phosphatase (35-129) units/L Total Creatine Kinase 93 (55-170) units/L CK-MB (CK-2) 2.4 (0.0-4.0) ng/mL CK-MB (CK-2) Rel Index 2.5 (0-4) Troponin T 1.140 H* (0.00-0.029) ng/mL NT-Pro-B Natriuret Pep (0-900) pg/mL Total Protein (6.3-8.2) g/dL Albumin (3.9-5) g/dL Albumin/Globulin Ratio % Triglycerides 74 (2-149) mg/dL Cholesterol 115 (50-199) mg/dL LDL Cholesterol Direct 67 (50-130) mg/dL HDL Cholesterol 39 L (40-59) mg/dL Cholesterol/HDL Ratio 2.94 % 06/20/18 06/20/18 06/21/18 Range/Units 18:06 22:33 05:11 WBC 13.1 H (4.5-11.0) K/mm3 RBC 4.15 (3.65-5.03) M/mm3 Hgb 11.8 (11.8-15.2) gm/dl Hct 34.3 L (35.5-45.6) % MCV 83 L (84-94) fl MCH 29 (28-32) pg MCHC 35 H (32-34) % RDW 13.1 L (13.2-15.2) % Plt Count 407 (140-440) K/mm3 Lymph % (Auto) 12.7 L (13.4-35.0) % [place] % (Auto) 7.1 (0.0-7.3) % Eos % (Auto) 1.8 (0.0-4.3) % Baso % (Auto) 0.4 (0.0-1.8) % Lymph # 1.7 (1.2-5.4) K/mm3 [place] # 0.9 H (0.0-0.8) K/mm3 Eos # 0.2 (0.0-0.4) K/mm3 Baso # 0.1 (0.0-0.1) K/mm3 Seg Neutrophils % 78.0 H (40.0-70.0) % Seg Neutrophils # 10.2 H (1.8-7.7) K/mm3 PT (12.2-14.9) Sec. INR (0.87-1.13) APTT (24.2-36.6) Sec. Sodium 139 (137-145) mmol/L Potassium 3.5 L (3.6-5.0) mmol/L Chloride 100.6 (98-107) mmol/L Carbon Dioxide 24 (22-30) mmol/L Anion Gap 18 mmol/L BUN 10 (9-20) mg/dL Creatinine 1.1 (0.8-1.5) mg/dL Estimated GFR > 60 ml/min BUN/Creatinine Ratio 9 % Glucose 122 H (75-100) mg/dL Calcium 8.7 (8.4-10.2) mg/dL Magnesium 2.10 (1.7-2.3) mg/dL Total Bilirubin 0.30 (0.1-1.2) mg/dL AST 22 (5-40) units/L ALT 33 (7-56) units/L Alkaline Phosphatase 100 (35-129) units/L Total Creatine Kinase (55-170) units/L CK-MB (CK-2) (0.0-4.0) ng/mL CK-MB (CK-2) Rel Index (0-4) Troponin T 1.190 H* (0.00-0.029) ng/mL NT-Pro-B Natriuret Pep 2989 H (0-900) pg/mL Total Protein 6.7 (6.3-8.2) g/dL Albumin 3.5 L (3.9-5) g/dL Albumin/Globulin Ratio 1.1 % Triglycerides (2-149) mg/dL Cholesterol (50-199) mg/dL LDL Cholesterol Direct (50-130) mg/dL HDL Cholesterol (40-59) mg/dL Cholesterol/HDL Ratio % 06/21/18 06/21/18 06/21/18 Range/Units 05:11 05:11 05:11 WBC (4.5-11.0) K/mm3 RBC (3.65-5.03) M/mm3 Hgb (11.8-15.2) gm/dl Hct (35.5-45.6) % MCV (84-94) fl MCH (28-32) pg MCHC (32-34) % RDW (13.2-15.2) % Plt Count (140-440) K/mm3 Lymph % (Auto) (13.4-35.0) % [place] % (Auto) (0.0-7.3) % Eos % (Auto) (0.0-4.3) % Baso % (Auto) (0.0-1.8) % Lymph # (1.2-5.4) K/mm3 [place] # (0.0-0.8) K/mm3 Eos # (0.0-0.4) K/mm3 Baso # (0.0-0.1) K/mm3 Seg Neutrophils % (40.0-70.0) % Seg Neutrophils # (1.8-7.7) K/mm3 PT (12.2-14.9) Sec. INR (0.87-1.13) APTT (24.2-36.6) Sec. Sodium 138 (137-145) mmol/L Potassium 4.0 (3.6-5.0) mmol/L Chloride 97.8 L (98-107) mmol/L Carbon Dioxide 27 (22-30) mmol/L Anion Gap 17 mmol/L BUN 10 (9-20) mg/dL Creatinine 1.1 (0.8-1.5) mg/dL Estimated GFR > 60 ml/min BUN/Creatinine Ratio 9 % Glucose 105 H (75-100) mg/dL Calcium 8.4 (8.4-10.2) mg/dL Magnesium (1.7-2.3) mg/dL Total Bilirubin (0.1-1.2) mg/dL AST (5-40) units/L ALT (7-56) units/L Alkaline Phosphatase (35-129) units/L Total Creatine Kinase 74 (55-170) units/L CK-MB (CK-2) 1.7 (0.0-4.0) ng/mL CK-MB (CK-2) Rel Index 2.2 (0-4) Troponin T 1.030 H* (0.00-0.029) ng/mL NT-Pro-B Natriuret Pep (0-900) pg/mL Total Protein (6.3-8.2) g/dL Albumin (3.9-5) g/dL Albumin/Globulin Ratio % Triglycerides (2-149) mg/dL Cholesterol (50-199) mg/dL LDL Cholesterol Direct (50-130) mg/dL HDL Cholesterol (40-59) mg/dL Cholesterol/HDL Ratio % Coagulation 06/20/18 Range/Units 18:06 PT 14.0 (12.2-14.9) Sec. INR 1.04 (0.87-1.13) APTT 29.9 (24.2-36.6) Sec. Lipids 06/20/18 Range/Units 18:06 Triglycerides 74 (2-149) mg/dL Cholesterol 115 (50-199) mg/dL HDL Cholesterol 39 L (40-59) mg/dL Cholesterol/HDL Ratio 2.94 % CBC 06/20/18 06/21/18 Range/Units 18:06 05:11 WBC 14.5 H 13.1 H (4.5-11.0) K/mm3 RBC 4.36 4.15 (3.65-5.03) M/mm3 Hgb 12.1 11.8 (11.8-15.2) gm/dl Hct 36.3 34.3 L (35.5-45.6) % Plt Count 426 407 (140-440) K/mm3 Lymph # 2.1 1.7 (1.2-5.4) K/mm3 [place] # 1.0 H 0.9 H (0.0-0.8) K/mm3 Eos # 0.4 0.2 (0.0-0.4) K/mm3 Baso # 0.2 H 0.1 (0.0-0.1) K/mm3 Comprehensive Metabolic Panel 06/20/18 06/21/18 Range/Units 18:06 05:11 Sodium 139 138 (137-145) mmol/L Potassium 3.5 L 4.0 (3.6-5.0) mmol/L Chloride 100.6 97.8 L (98-107) mmol/L Carbon Dioxide 24 27 (22-30) mmol/L BUN 10 10 (9-20) mg/dL Creatinine 1.1 1.1 (0.8-1.5) mg/dL Glucose 122 H 105 H (75-100) mg/dL Calcium 8.7 8.4 (8.4-10.2) mg/dL AST 22 (5-40) units/L ALT 33 (7-56) units/L Alkaline Phosphatase 100 (35-129) units/L Total Protein 6.7 (6.3-8.2) g/dL Albumin 3.5 L (3.9-5) g/dL Assessment and Plan Systolic heart failure Currently mildly volume overloaded. CAD with anterior STEMI s/p LAD PCI on 06/11/18 Fawn-infarct VT/VF cardiac arrest Ischemic cardiomyopathy Troponin elevation related to recent ID Recommend: Continue medical therapy for CAD and ischemic cardiomyopathy IV diuresis and monitor electrolytes.
[2018-06-21] MEDS: COREG PO SCH ×2 (11:22→21:49)
[2018-06-21] MEDS: PLAVIX PO SCH (11:24)
[2018-06-21] MEDS: ZESTRIL PO SCH (11:24)
[2018-06-21] MEDS: LACTINEX PO SCH ×2 (11:25→21:49)
[2018-06-21] MEDS: CORDARONE PO SCH ×2 (11:25→21:49)
[2018-06-21] MEDS: PROTONIX PO SCH (11:25)
[2018-06-21] MEDS: LOVENOX SUB-Q SCH (11:25)
[2018-06-21] MEDS: SODIUM CHLORIDE FLUSH SYRINGE 10 ML IV SCH ×2 (11:26→21:49)
[2018-06-21] MEDS: HALFPRIN EC PO SCH (11:37)
--- NOTE | 2018-06-21 12:58 | Progress Note ---
Assessment and Plan Assessment and plan: 57-year-old man with history of coronary artery disease, CHF, status post V. fib cardiac arrest on June 11,comes to the emergency room with complaints of right hand swelling. His symptoms started after he was discharged on June 18, no fever or chills. Also complaining of lower extremity edema however no PND or orthopnea, shortness of breath. He complained of generalized weakness. Old records reviewed. Patient state he was not discharged on a diuretic CHF with acute systolic exacerbation Sepsis Cellulitis of the left and Coronary artery disease, status post ID 10 days ago S/P LAD TO PCI 06/11/18 S/P VT arrest Abnormal cardiac enzymes-IMPROVING SINCE PCI Plan Continue supportive care Diurese with IV Lasix Patient reports improvement. Continue current therapy Monitor electrolytes Cardiology input noted Monitor I's and O Continue IV Zosyn, follow cultures Fluids held due to heart condition. Continue appropriate outpatient medications DVT prophylaxis Plan discussed with the patient in detail History Interval history: Patient seen and examined, admitted with shortness of breath and extremity swelling. Reports some improvement today. Denies any chest pain, some orthopena still persist Hospitalist Physical - Physical exam Narrative exam: VITAL SIGNS: Reviewed. GENERAL: The patient appeared well nourished and normally developed. Vital si gns as documented. HEAD: No signs of head trauma. EYES: Pupils are equal. Extraocular motions intact. EARS: Hearing grossly intact. MOUTH: Oropharynx is normal. NECK: No adenopathy, no JVD. CHEST: Chest with fine crackles breath sounds bilaterally. No wheezes, CARDIAC: Regular rate and rhythm. S1 and S2, without murmurs, gallops, or rubs. VASCULAR: +1 Edema. Peripheral pulses normal and equal in all extremities. ABDOMEN: Soft, without detectable tenderness. No sign of distention. No rebound or guarding, and no masses palpated. Bowel Sounds normal. MUSCULOSKELETAL: Good range of motion of all major joints. Extremities without clubbing, cyanosis. +1 pitting edema in ext NEUROLOGIC EXAM: Alert and oriented x 3. No focal sensory or strength deficits. Speech normal. Follows commands. PSYCHIATRIC: Mood normal. SKIN: No rash or lesions. - Constitutional Vitals: Temp Pulse Resp BP Pulse Ox 98.8 F 97 H 24 130/89 95 06/21/18 07:48 06/21/18 11:24 06/21/18 07:48 06/21/18 11:24 06/21/18 07:48 General appearance: Present: no acute distress Results - Labs CBC & Chem 7: 06/22/18 05:24 06/22/18 05:24 Labs: Laboratory Last Values WBC 13.1 K/mm3 (4.5-11.0) H 06/21/18 05:11 RBC 4.15 M/mm3 (3.65-5.03) 06/21/18 05:11 Hgb 11.8 gm/dl (11.8-15.2) 06/21/18 05:11 Hct 34.3 % (35.5-45.6) L 06/21/18 05:11 MCV 83 fl (84-94) L 06/21/18 05:11 MCH 29 pg (28-32) 06/21/18 05:11 MCHC 35 % (32-34) H 06/21/18 05:11 RDW 13.1 % (13.2-15.2) L 06/21/18 05:11 Plt Count 407 K/mm3 (140-440) 06/21/18 05:11 Lymph % (Auto) 12.7 % (13.4-35.0) L 06/21/18 05:11 [place] % (Auto) 7.1 % (0.0-7.3) 06/21/18 05:11 Eos % (Auto) 1.8 % (0.0-4.3) 06/21/18 05:11 Baso % (Auto) 0.4 % (0.0-1.8) 06/21/18 05:11 Lymph # 1.7 K/mm3 (1.2-5.4) 06/21/18 05:11 [place] # 0.9 K/mm3 (0.0-0.8) H 06/21/18 05:11 Eos # 0.2 K/mm3 (0.0-0.4) 06/21/18 05:11 Baso # 0.1 K/mm3 (0.0-0.1) 06/21/18 05:11 Seg Neutrophils % 78.0 % (40.0-70.0) H 06/21/18 05:11 Seg Neutrophils # 10.2 K/mm3 (1.8-7.7) H 06/21/18 05:11 PT 14.0 Sec. (12.2-14.9) 06/20/18 18:06 INR 1.04 (0.87-1.13) 06/20/18 18:06 APTT 29.9 Sec. (24.2-36.6) 06/20/18 18:06 Sodium 138 mmol/L (137-145) 06/21/18 05:11 Potassium 4.0 mmol/L (3.6-5.0) 06/21/18 05:11 Chloride 97.8 mmol/L (98-107) L 06/21/18 05:11 Carbon Dioxide 27 mmol/L (22-30) 06/21/18 05:11 Anion Gap 17 mmol/L 06/21/18 05:11 BUN 10 mg/dL (9-20) 06/21/18 05:11 Creatinine 1.1 mg/dL (0.8-1.5) 06/21/18 05:11 Estimated GFR > 60 ml/min 06/21/18 05:11 BUN/Creatinine Ratio 9 % 06/21/18 05:11 Glucose 105 mg/dL (75-100) H 06/21/18 05:11 Calcium 8.4 mg/dL (8.4-10.2) 06/21/18 05:11 Magnesium 2.10 mg/dL (1.7-2.3) 06/20/18 18:06 Total Bilirubin 0.30 mg/dL (0.1-1.2) 06/20/18 18:06 AST 22 units/L (5-40) 06/20/18 18:06 ALT 33 units/L (7-56) 06/20/18 18:06 Alkaline Phosphatase 100 units/L (35-129) 06/20/18 18:06 Total Creatine Kinase 74 units/L (55-170) 06/21/18 05:11 CK-MB (CK-2) 1.7 ng/mL (0.0-4.0) 06/21/18 05:11 CK-MB (CK-2) Rel Index 2.2 (0-4) 06/21/18 05:11 Troponin T 1.030 ng/mL (0.00-0.029) H* 06/21/18 05:11 NT-Pro-B Natriuret Pep 2989 pg/mL (0-900) H 06/20/18 18:06 Total Protein 6.7 g/dL (6.3-8.2) 06/20/18 18:06 Albumin 3.5 g/dL (3.9-5) L 06/20/18 18:06 Albumin/Globulin Ratio 1.1 % 06/20/18 18:06 Triglycerides 74 mg/dL (2-149) 06/20/18 18:06 Cholesterol 115 mg/dL (50-199) 06/20/18 18:06 LDL Cholesterol Direct 67 mg/dL (50-130) 06/20/18 18:06 HDL Cholesterol 39 mg/dL (40-59) L 06/20/18 18:06 Cholesterol/HDL Ratio 2.94 % 06/20/18 18:06 - Imaging and Cardiology Chest x-ray: image reviewed (SMALL LEFT PLEURAL EFFUSION)
[2018-06-21] MEDS: LASIX IV SCH (17:52)
[2018-06-21] MEDS ORDERED: NON-FORMULARY (Rosuvastatin (Nf) 20 MG) PO SCH (22:00)
[2018-06-22] MEDS ORDERED: AMBIEN PO ONE (02:27)
[2018-06-22 06:26] LABS: Hematocrit 33.7 % (35.5-45.6); Hemoglobin 11.3 gm/dl (11.8-15.2); Mean Corpuscular HGB Conc 33 % (32-34); Mean Corpuscular Volume 84 fl (84-94); Platelet Count 406 K/mm3 (140-440); Red Blood Count 4.02 M/mm3 (3.65-5.03)
[2018-06-22 06:35] LABS: BUN/Creatinine Ratio 9; Blood Urea Nitrogen 11 mg/dL (9-20); Calcium 8.5 mg/dL (8.4-10.2); Hemolysis Index 1
[2018-06-22] MEDS: LASIX IV SCH ×2 (06:35→18:01)
[2018-06-22] MEDS: COREG PO SCH ×2 (10:19→22:26)
[2018-06-22] MEDS: PROTONIX PO SCH (10:19)
[2018-06-22] MEDS: HALFPRIN EC PO SCH (10:19)
[2018-06-22] MEDS: K-DUR PO SCH (10:19)
[2018-06-22] MEDS: CORDARONE PO SCH ×2 (10:19→22:28)
[2018-06-22] MEDS: LACTINEX PO SCH ×2 (10:19→22:26)
[2018-06-22] MEDS: LOVENOX SUB-Q SCH (10:20)
[2018-06-22] MEDS: ZESTRIL PO SCH (10:20)
[2018-06-22] MEDS: SODIUM CHLORIDE FLUSH SYRINGE 10 ML IV SCH ×2 (10:21→22:27)
[2018-06-22] MEDS: PLAVIX PO SCH (10:21)
[2018-06-22] MEDS ORDERED: DESYREL PO PRN (12:31)
--- NOTE | 2018-06-22 12:33 | Progress Note ---
Assessment and Plan Assessment and plan: 57-year-old man with history of coronary artery disease, CHF, status post V. fib cardiac arrest on June 11,comes to the emergency room with complaints of right hand swelling. His symptoms started after he was discharged on June 18, no fever or chills. Also complaining of lower extremity edema however no PND or orthopnea, shortness of breath. He complained of generalized weakness. Old records reviewed. Patient state he was not discharged on a diuretic CHF with acute systolic exacerbation Sepsis Cellulitis of the left and Groin rash-Jock itch Coronary artery disease, status post AL 10 days ago S/P LAD TO PCI 06/11/18 S/P VT arrest Abnormal cardiac enzymes-IMPROVING SINCE PCI Plan Continue supportive care Diurese with IV Lasix Add nystatin powder Patient reports improvement. Continue current therapy Monitor electrolytes Cardiology input noted Monitor I's and O Continue IV Zosyn, follow cultures Fluids held due to heart condition. Continue appropriate outpatient medications DVT prophylaxis Plan discussed with the patient in detail History Interval history: Patient seen and examined, admitted with shortness of breath and extremity swelling. Reports some improvement today. Denies any chest pain, TODAY POINTS OUT GROIN RASH THAT HAS BEEN PRESENT SINCE 3 DAYS [employer] Hospitalist Physical - Physical exam Narrative exam: VITAL SIGNS: Reviewed. GENERAL: The patient appeared well nourished and normally developed. Vital signs as documented. HEAD: No signs of head trauma. EYES: Pupils are equal. Extraocular motions intact. EARS: Hearing grossly intact. MOUTH: Oropharynx is normal. NECK: No adenopathy, no JVD. CHEST: Chest with fine crackles breath sounds bilaterally. No wheezes, CARDIAC: Regular rate and rhythm. S1 and S2, without murmurs, gallops, or rubs. VASCULAR: +1 Edema. Peripheral pulses normal and equal in all extremities. ABDOMEN: Soft, without detectable tenderness. No sign of distention. No rebound or guarding, and no masses palpated. Bowel Sounds normal. MUSCULOSKELETAL: Good range of motion of all major joints. Extremities without clubbing, cyanosis. +1 pitting edema in ext NEUROLOGIC EXAM: Alert and oriented x 3. No focal sensory or strength d eficits. Speech normal. Follows commands. PSYCHIATRIC: Mood normal. SKIN: Pleuritic bilateral groin rash, erythema - Constitutional Vitals: Temp Pulse Resp BP Pulse Ox 98.3 F 92 H 24 117/73 97 01/13/19 08:04 06/22/18 10:20 06/22/18 08:04 06/22/18 10:20 06/22/18 08:04 General appearance: Present: no acute distress Results - Labs CBC & Chem 7: 06/22/18 05:24 06/22/18 05:24 Labs: Laboratory Last Values WBC 11.8 K/mm3 (4.5-11.0) H 06/22/18 05:24 RBC 4.02 M/mm3 (3.65-5.03) 06/22/18 05:24 Hgb 11.3 gm/dl (11.8-15.2) L 06/22/18 05:24 Hct 33.7 % (35.5-45.6) L 06/22/18 05:24 MCV 84 fl (84-94) 06/22/18 05:24 MCH 28 pg (28-32) 06/22/18 05:24 MCHC 33 % (32-34) 06/22/18 05:24 RDW 13.0 % (13.2-15.2) L 06/22/18 05:24 Plt Count 406 K/mm3 (140-440) 06/22/18 05:24 Lymph % (Auto) 12.7 % (13.4-35.0) L 06/21/18 05:11 [place] % (Auto) 7.1 % (0.0-7.3) 06/21/18 05:11 Eos % (Auto) 1.8 % (0.0-4.3) 06/21/18 05:11 Baso % (Auto) 0.4 % (0.0-1.8) 06/21/18 05:11 Lymph # 1.7 K/mm3 (1.2-5.4) 06/21/18 05:11 [place] # 0.9 K/mm3 (0.0-0.8) H 06/21/18 05:11 Eos # 0.2 K/mm3 (0.0-0.4) 06/21/18 05:11 Baso # 0.1 K/mm3 (0.0-0.1) 06/21/18 05:11 Seg Neutrophils % 78.0 % (40.0-70.0) H 06/21/18 05:11 Seg Neutrophils # 10.2 K/mm3 (1.8-7.7) H 06/21/18 05:11 PT 14.0 Sec. (12.2-14.9) 06/20/18 18:06 INR 1.04 (0.87-1.13) 06/20/18 18:06 APTT 29.9 Sec. (24.2-36.6) 06/20/18 18:06 Sodium 137 mmol/L (137-145) 06/22/18 05:24 Potassium 3.9 mmol/L (3.6-5.0) 06/22/18 05:24 Chloride 97.4 mmol/L (98-107) L 06/22/18 05:24 Carbon Dioxide 28 mmol/L (22-30) 06/22/18 05:24 Anion Gap 16 mmol/L 06/22/18 05:24 BUN 11 mg/dL (9-20) 06/22/18 05:24 Creatinine 1.2 mg/dL (0.8-1.5) 06/22/18 05:24 Estimated GFR > 60 ml/min 06/22/18 05:24 BUN/Creatinine Ratio 9 % 06/22/18 05:24 Glucose 98 mg/dL (75-100) 06/22/18 05:24 Calcium 8.5 mg/dL (8.4-10.2) 06/22/18 05:24 Magnesium 2.10 mg/dL (1.7-2.3) 06/20/18 18:06 Total Bilirubin 0.30 mg/dL (0.1-1.2) 06/20/18 18:06 AST 22 units/L (5-40) 06/20/18 18:06 ALT 33 units/L (7-56) 06/20/18 18:06 Alkaline Phosphatase 100 units/L (35-129) 06/20/18 18:06 Total Creatine Kinase 74 units/L (55-170) 06/21/18 05:11 CK-MB (CK-2) 1.7 ng/mL (0.0-4.0) 06/21/18 05:11 CK-MB (CK-2) Rel Index 2.2 (0-4) 06/21/18 05:11 Troponin T 1.030 ng/mL (0.00-0.029) H* 06/21/18 05:11 NT-Pro-B Natriuret Pep 2989 pg/mL (0-900) H 06/20/18 18:06 Total Protein 6.7 g/dL (6.3-8.2) 06/20/18 18:06 Albumin 3.5 g/dL (3.9-5) L 06/20/18 18:06 Albumin/Globulin Ratio 1.1 % 06/20/18 18:06 Triglycerides 74 mg/dL (2-149) 06/20/18 18:06 Cholesterol 115 mg/dL (50-199) 06/20/18 18:06 LDL Cholesterol Direct 67 mg/dL (50-130) 06/20/18 18:06 HDL Cholesterol 39 mg/dL (40-59) L 06/20/18 18:06 Cholesterol/HDL Ratio 2.94 % 06/20/18 18:06
--- NOTE | 2018-06-22 15:43 | Progress Note ---
Assessment and Plan Systolic heart failure CAD with anterior STEMI s/p LAD PCI on 06/11/18 Sandra-infarct VT/VF cardiac arrest Ischemic cardiomyopathy Troponin elevation related to recent [place] Recommend: Continue medical therapy for CAD and ischemic cardiomyopathy IV diuresis and monitor electrolytes. Subjective Date of service: 06/22/18 Interval history: Shortness of breath is improving. Objective Vital Signs Temp Pulse Resp BP Pulse Ox 06/22/18 10:20 92 H 117/73 06/22/18 10:19 92 H 117/73 06/22/18 08:04 98.3 F 88 24 119/82 97 06/22/18 04:59 98.5 F 88 18 118/76 97 06/21/18 23:36 99.3 F 97 H 18 125/85 97 06/21/18 23:00 86 06/21/18 22:00 18 06/21/18 21:49 103 H 124/79 06/21/18 20:14 98.6 F 97 H 18 124/79 94 06/21/18 16:14 99.2 F 95 H 20 117/76 97 - Physical Examination HEENT: Positive: PERRL Neck: Positive: neck supple Cardiac: Positive: Reg Rate and Rhythm Lungs: Positive: clear to auscultation Neuro: Positive: Grossly Intact Abdomen: Positive: Soft, Active Bowel Sounds Extremities: Present: +1 Edema - Labs and Meds CBC 06/22/18 Range/Units 05:24 WBC 11.8 H (4.5-11.0) K/mm3 RBC 4.02 (3.65-5.03) M/mm3 Hgb 11.3 L (11.8-15.2) gm/dl Hct 33.7 L (35.5-45.6) % Plt Count 406 (140-440) K/mm3 Comprehensive Metabolic Panel 06/22/18 Range/Units 05:24 Sodium 137 (137-145) mmol/L Potassium 3.9 (3.6-5.0) mmol/L Chloride 97.4 L (98-107) mmol/L Carbon Dioxide 28 (22-30) mmol/L BUN 11 (9-20) mg/dL Creatinine 1.2 (0.8-1.5) mg/dL Glucose 98 (75-100) mg/dL Calcium 8.5 (8.4-10.2) mg/dL - Imaging and Cardiology EKG: image reviewed
[2018-06-22] MEDS: NYSTOP TP SCH ×2 (17:14→22:27)
[2018-06-23] MEDS: LASIX IV SCH (05:34)
[2018-06-23] MEDS: PLAVIX PO SCH (09:38)
[2018-06-23] MEDS: LACTINEX PO SCH (09:38)
[2018-06-23] MEDS: LOVENOX SUB-Q SCH (09:38)
[2018-06-23] MEDS: COREG PO SCH (09:39)
[2018-06-23] MEDS: K-DUR PO SCH (09:39)
[2018-06-23] MEDS: PROTONIX PO SCH (09:39)
[2018-06-23] MEDS: HALFPRIN EC PO SCH (09:39)
[2018-06-23] MEDS: ZESTRIL PO SCH (09:39)
[2018-06-23] MEDS: NYSTOP TP SCH (09:40)
[2018-06-23] MEDS: CORDARONE PO SCH (09:40)
[2018-06-23] MEDS: SODIUM CHLORIDE FLUSH SYRINGE 10 ML IV SCH (09:40)
[2018-06-23 10:03] VITALS: BP 114/79
--- NOTE | 2018-06-23 10:54 | Progress Note ---
Addendum entered and electronically signed by ELIAS DEGROOT MD 06/23/18 12:48: Patient looks and feels better, stable for cardiac discharge with addition of optimal diuretic therapy to his regimen. Original Note: Assessment and Plan Acute Systolic heart failure CAD with anterior STEMI s/p LAD PCI on 06/11/18 Sandra-infarct VT/VF cardiac arrest wears lifevest as an outpatient Ischemic cardiomyopathy, EF 20-30% Troponin elevation related to recent DC Recommend: Continue medical therapy for CAD and ischemic cardiomyopathy. Stable cardiac horton for discharge home today. Patient advised to follow up with [facility] within 5-7 days. Subjective Date of service: 06/23/18 Interval history: Patient is resting in bed comfortably. No reported cardiac events overnight. Objective Vital Signs Temp Pulse Pulse Resp BP Pulse Ox 06/23/18 10:00 98.3 F 100 H 16 114/79 99 06/23/18 09:39 74 06/23/18 04:38 97.8 F 91 H 20 105/66 97 06/23/18 00:02 98.5 F 95 H 20 115/79 98 06/22/18 22:45 91 H 18 98 06/22/18 22:26 91 H 109/63 06/22/18 22:00 100 06/22/18 21:18 98.5 F 91 H 20 109/63 98 06/22/18 19:47 98 H 06/22/18 15:43 98.1 F 88 22 93/60 96 06/22/18 11:28 97.7 F 94 H 20 118/80 98 - Physical Examination General: No Apparent Distress HEENT: Positive: PERRL Neck: Positive: trachea midline Cardiac: Positive: Reg Rate and Rhythm Lungs: Positive: Decreased Breath Sounds Neuro: Positive: Grossly Intact Abdomen: Positive: Soft, Active Bowel Sounds Extremities: Absent: edema
--- NOTE | 2018-06-23 11:48 | Discharge Summary ---
Providers - Providers Date of Admission: 06/20/18 22:18 Attending physician: MARIAMA VICK MD 06/20/18 21:19 Consult to Physician [CONS] Routine Comment: Dr. Shah spoke with Dr. 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 fib cardiac arrest on June 11,comes to the emergency room with complaints of right hand swelling. His symptoms started after he was discharged on June 18, no fever or chills. Also complaining of lower extremity edema however no PND or orthopnea, shortness of breath. He complained of generalized weakness. Old records reviewed. Patient state he was not discharged on a diuretic. Patient was treated with IV duresis and also with antibiotics for sepsis which resolved. He is clinically stable for discharge. And will follow with cardiology outpatient. CHF with acute systolic exacerbation Sepsis Cellulitis of the left and Groin rash-Jock itch Coronary artery disease, status post ND 10 days ago S/P LAD TO PCI 06/11/18 S/P VT arrest Abnormal cardiac enzymes-IMPROVING SINCE PCI Disposition: [id number] HOME UNDER [facility] Time spent for discharge: 35 MINS Core Measure Documentation - Palliative Care Palliative Care/ Comfort Measures: Not Applicable - Core Measures Any of the following diagnoses?: heart failure - Heart Failure Discharge Requirements MIKO/ARB for LVSD if EF <40%: Yes Beta karis at discharge: Yes Exam - Physical Exam Narrative exam: VITAL SIGNS: Reviewed. GENERAL: The patient appeared well nourished and normally developed. Vital signs as documented. HEAD: No signs of head trauma. EYES: Pupils are equal. Extraocular motions intact. EARS: Hearing grossly intact. MOUTH: Oropharynx is normal. NECK: No adenopathy, no JVD. CHEST: Chest with fine crackles breath sounds bilaterally. No wheezes, CARDIAC: Regular rate and rhythm. S1 and S2, without murmurs, gallops, or rubs. VASCULAR: +1 Edema. Peripheral pulses normal and equal in all extremities. ABDOMEN: Soft, without detectable tenderness. No sign of distention. No rebound or guarding, and no masses palpated. Bowel Sounds normal. MUSCULOSKELETAL: Good range of motion of all major joints. Extremities without clubbing, cyanosis. +1 pitting edema in ext NEUROLOGIC EXAM: Alert and oriented x 3. No focal sensory or strength deficits. Speech normal. Follows commands. PSYCHIATRIC: Mood normal. SKIN: Pleuritic bilateral groin rash, erythema. improved - Constitutional Vitals: Temp Pulse Resp BP Pulse Ox 98.3 F 100 H 16 114/79 99 06/23/18 10:00 06/23/18 10:00 06/23/18 10:00 06/23/18 10:06/23/18 10:00 Plan Activity: advance as tolerated, fall precautions Diet: low salt Special Instructions: restrict fluid intake to (1200CC/DAY) Follow up with: PRIMARY CAREMD [Primary Care Provider] - 3-5 Days ELIAS DEGROOT MD [Staff Physician] - 7 Days Prescriptions: Rosuvastatin (Nf) [Crestor] 20 mg PO QHS #30 tablet Carvedilol [Coreg] 3.125 mg PO BID #60 tablet Furosemide [Lasix TAB] 40 mg PO QDAY #30 tablet Nystatin [Nystop Powder] 1 applic TP BID #14 powder Potassium Chloride [K-Dur] 10 meq PO QDAY #30 tablet
== END 2018-06-23 15:03 | disposition home health service (06) | DRG 871 ==
LOC: ED 13:22 → 4A 22:18
PROVIDERS: ADMIT Internal Medicine; ATTEND Internal Medicine
DX: A41.9 Sepsis, unspecified organism (principal); I50.21 Acute systolic (congestive) heart failure; J18.9 Pneumonia, unspecified organism; I21.09 ST elevation (STEMI) myocardial infarction involving other coronary artery of anterior wall; I25.2 Old myocardial infarction; Y95 Nosocomial condition; J90 Pleural effusion, not elsewhere classified; I25.10 Atherosclerotic heart disease of native coronary artery without angina pectoris; L03.114 Cellulitis of left upper limb; I25.5 Ischemic cardiomyopathy; B35.6 Tinea cruris; Z88.0 Allergy status to penicillin; Z88.8 Allergy status to other drugs, medicaments and biological substances; Z95.5 Presence of coronary angioplasty implant and graft; Z82.49 Family history of ischemic heart disease and other diseases of the circulatory system; Z79.82 Long term (current) use of aspirin
CPT/HCPCS: 36415; 71045; 80048; 80053; 80061; 82550; 82553; 83735; 83880; 84484; 85025; 85027; 85610; 85730; 87040; 93005; 93010; 96365; 96366; 96375; G0378; J0456; J1650; J1940; J1956; J2060; J3370; J7050